=== PATIENT | female | born 1955 | race Two or more races ===

== ENCOUNTER 2020-04-03 06:58 | Inpatient (IN) | payer OTHER ==
--- NOTE | 2020-04-03 07:43 | PDOC ---
Attending Attestation - Resident Resident Name: Jarred Pires - ED Attending Attestation I have performed the following: I have examined & evaluated the patient, The case was reviewed & discussed with the resident, I agree w/resident's findings & plan, Exceptions are as noted - HPI HPI: 04/03/20 07:39 65YOF with h/o DM, HTN, HLD, and asthma who was BIBEMS (BLS) from home for fever and 2 episodes NBNB vomiting all since this morning. Was feeling well yesterday. She denies SOB, cough, ST, congestion, etc. Denies any specific areas of worsened pain (no specific CP, AP, back pain). She has not been taking abx or other Rx for symptoms. 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 Patient expresses concern for COVID-19. - Physicial Exam PE: 04/03/20 07:40 GENERAL: tired and a bit ill-appearing, A/Ox4, Portuguese-speaking, answers questions appropriately, appears dehydrated, wearing face mask, obese HEENT: PERRLA, EOMI, dry mucous membranes NECK/BACK: no midline ttp, no spinal stepoff or deformity, no hematoma, full ROM, neck supple CARDIOVASCULAR: rapid regular rhythm, no MGR, strong peripheral pulses, capillary refill 4 seconds, no edema LUNGS/RESPIRATORY: tachypneic, no focal area of decreased breath sounds, no crackles, no wheezes GI/ABDOMEN: symmetric [id number], normoactive BS, soft, no ttp, no midline pulsatile masses : no CVA tenderness MSK/EXTREMITIES: no muscle atrophy, no acute deformity SKIN: warm and dry, no pallor, no jaundice, no rash, no pathologic-appearing bruising, no skin breakdown, no cuts, no lesions NEUROLOGICAL: GCS 15, CN II-XII grossly intact, 5/5 strength proximally and distally, no facial droop - Medical Decision Making 04/03/20 07:40 65YOF with DM, HTN, HLD who p/w weakness and fever and c/f COVID-19 in the setting of COVID-19 pandemic. Initial Vital Signs Temp Pulse Resp BP Pulse Ox 103.7 F H 124 H 19 147/63 96 04/03/20 07:10 04/03/20 07:10 04/03/20 07:10 04/03/20 07:10 04/03/20 07:10 DDX IBNLT: likely COVID-19 with c/f sequelae i.e. myocarditis. Superimposed bacterial PNA considered as well. COPD/asthma/CHF exacerbation or other underlying lung disease possible contributing factor. Less likely influenza, bronchitis, other viral URI, laryngitis, tracheitis, etc. The patient has absent gallbladder on prior imaging and thus low suspicion for GB/retained stone. There is some c/f PE given the tachycardia and RBBB although this could be chronic and d/t fever (no prior EKG in our system). Provider Orders Category Date Time Status VENOUS BLOOD GAS Stat ABG 04/03/20 07:54 Completed ELECTROCARDIOGRAM [CARD] Stat Cardiology 04/03/20 07:21 Ordered Cardiac Monitoring Continuous Care 04/03/20 07:21 Active EKG needed NOW Care 04/03/20 07:21 Completed IV - Insert 2 lines NOW Care 04/03/20 07:21 Completed Isolation Precautions As directed Care 04/03/20 07:23 Active Notify Physician As directed Care 04/03/20 07:21 Active Notify Physician As directed Care 04/03/20 07:21 Active Physician Instructions As directed Care 04/03/20 07:21 Active Vital Signs [id number] Care 04/03/20 07:21 Active Add On Test Stat Lab 04/03/20 08:53 Ordered Add On Test Stat Lab 04/03/20 08:55 Ordered BILIRUBIN,DIRECT Stat Lab 04/03/20 07:50 Results C-REACTIVE PROTEIN Stat Lab 04/03/20 07:23 Ordered C-REACTIVE PROTEIN Stat Lab 04/03/20 07:50 Completed CBC WITH DIFFERENTIAL Stat Lab 04/03/20 07:50 Results CK MB Stat Lab 04/03/20 07:50 Completed COMP METABOLIC PANEL Stat Lab 04/03/20 07:50 Completed COVID-19 Stat Lab 04/03/20 07:50 Received CPK Stat Lab 04/03/20 07:50 Completed D-DIMER Stat Lab 04/03/20 07:50 Received FERRITIN Stat Lab 04/03/20 07:50 Results LACTIC ACID Stat Lab 04/03/20 07:50 Completed LDH Stat Lab 04/03/20 07:50 Results LIPASE Stat Lab 04/03/20 07:50 Results PT & APTT Stat Lab 04/03/20 07:50 Completed TROPONIN I ([facility]) Stat Lab 04/03/20 07:50 Completed UA ([facility]) ONLY Stat Lab 04/03/20 08:45 Ordered Acetaminophen Injection [Ofirmev Injection -] Medication 04/03/20 07:50 Discontinued 1,000 mg IVPB ONCE ONE Lactated Ringers Solution Medication 04/03/20 08:00 Active 1,000 ml in 1,000 ml IV ASDIR BLOOD CULTURE Stat Micro 04/03/20 07:50 Received URINE CULTURE Stat Micro 04/03/20 08:45 Ordered Saline Lock, Insert As directed Phy Order 04/03/20 07:21 Ordered CHEST X-RAY PORTABLE* [RAD] Stat Radiology 04/03/20 07:21 Completed 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 04/03/20 07:21 Ordered Medications Generic Name Dose Route Start Last Admin Trade Name Freq PRN Reason Stop Dose Admin Lactated Ringer's 1,000 ml in 1,000 mls @ 1,000 mls/hr 04/03/20 08:00 04/03/20 08:08 Lactated Ringers Solution IV 1,000 mls/hr ASDIR BELLA Administration Discontinued Medications Generic Name Dose Route Start Last Admin Trade Name Freq PRN Reason Stop Dose Admin Acetaminophen 1,000 mg 04/03/20 07:50 04/03/20 08:25 Ofirmev Injection - IVPB 04/03/20 07:51 1,000 mg ONCE ONE Administration Lab Results WBC 10.5 K/mm3 (4.0-10.0) H 04/03/20 07:50 RBC 4.27 M/mm3 (3.60-5.2) 04/03/20 07:50 Hgb 12.0 GM/dL (10.7-15.3) 04/03/20 07:50 Hct 35.9 % (32.4-45.2) 04/03/20 07:50 MCV 83.9 fl (80-96) 04/03/20 07:50 MCH 28.0 pg (25.7-33.7) 04/03/20 07:50 MCHC 33.3 g/dl (32.0-36.0) 04/03/20 07:50 RDW 14.1 % (11.6-15.6) 04/03/20 07:50 Plt Count 288 K/MM3 (134-434) 04/03/20 07:50 MPV 9.1 fl (7.5-11.1) 04/03/20 07:50 Absolute Neuts (auto) 9.8 K/mm3 (1.5-8.0) H 04/03/20 07:50 Neutrophils % 93.5 % (42.8-82.8) H 04/03/20 07:50 Lymphocytes % 3.9 % (8-40) L 04/03/20 07:50 Monocytes % 2.3 % (3.8-10.2) L 04/03/20 07:50 Eosinophils % 0.1 % (0-4.5) 04/03/20 07:50 Basophils % 0.2 % (0-2.0) 04/03/20 07:50 Nucleated RBC % 0 % (0-0) 04/03/20 07:50 PT with INR 12.10 SEC (9.7-13.0) 04/03/20 07:50 INR 1.03 (0.83-1.09) 04/03/20 07:50 PTT (Actin FS) 26.9 SECONDS (25.2-36.5) 04/03/20 07:50 VBG pH 7.386 (7.310-7.410) 04/03/20 07:54 POC VBG pCO2 44.9 mmHg (38-52) 04/03/20 07:54 POC VBG pO2 43.4 mmHg (28-48) 04/03/20 07:54 VBG HCO3 26.3 mmol/L (23-29) 04/03/20 07:54 VBG O2 Sat (Leanne) 78.4 % (70-80) 04/03/20 07:54 VBG Base Excess 1.0 mmol/L (-2-2) 04/03/20 07:54 Sodium 138 mmol/L (136-145) 04/03/20 07:50 Potassium 3.7 mmol/L (3.5-5.1) 04/03/20 07:50 Chloride 101 mmol/L (98-107) 04/03/20 07:50 Carbon Dioxide 27 mmol/L (21-32) 04/03/20 07:50 Anion Gap 9 MMOL/L (8-16) 04/03/20 07:50 BUN 14.9 mg/dL (7-18) 04/03/20 07:50 Creatinine 0.9 mg/dL (0.55-1.3) 04/03/20 07:50 Est GFR (CKD-EPI)AfAm 77.77 04/03/20 07:50 Est GFR (CKD-EPI)NonAf 67.10 04/03/20 07:50 Random Glucose 149 mg/dL (74-106) H 04/03/20 07:50 Lactic Acid 3.0 mmol/L (0.4-2.0) H* 04/03/20 07:50 Calcium 8.8 mg/dL (8.5-10.1) 04/03/20 07:50 Ferritin 56.1 ng/ml (8-388) 04/03/20 07:50 Total Bilirubin 1.4 mg/dL (0.2-1) H 04/03/20 07:50 Direct Bilirubin 0.7 mg/dL (0.0-0.2) H 04/03/20 07:50 AST 269 U/L (15-37) H 04/03/20 07:50 ALT 147 U/L (13-61) H 04/03/20 07:50 Alkaline Phosphatase 219 U/L (45-117) H 04/03/20 07:50 LD Total 406 U/L (84-246) H 04/03/20 07:50 Creatine Kinase 130 U/L (26-192) 04/03/20 07:50 CK-MB (CK-2) < 1.0 ng/mL (0.5-3.6) 04/03/20 07:50 Troponin I < 0.02 ng/ml (0.00-0.05) 04/03/20 07:50 C-Reactive Protein 2.0 MG/DL (0.00-0.3) H 04/03/20 07:50 Total Protein 7.6 g/dl (6.4-8.2) 04/03/20 07:50 Albumin 3.6 g/dl (3.4-5.0) 04/03/20 07:50 Urine Test Results Urine Color Yellow 04/03/20 08:12 Urine Appearance Error 04/03/20 08:12 Urine pH 6.0 (5.0-8.0) 04/03/20 08:12 Ur Specific [place] 1.018 (1.010-1.035) 04/03/20 08:12 Urine Protein Negative (NEGATIVE) 04/03/20 08:12 Urine Glucose (UA) Negative (NEGATIVE) 04/03/20 08:12 Urine Ketones Negative (NEGATIVE) 04/03/20 08:12 Urine Blood Trace (NEGATIVE) 04/03/20 08:12 Urine Nitrite Negative (NEGATIVE) 04/03/20 08:12 Urine Bilirubin Negative (NEGATIVE) 04/03/20 08:12 Ur Leukocyte Esterase Trace (NEGATIVE) 04/03/20 08:12 EKG: Reviewed; results as noted in ECG Review section. RAD/CHEST X-RAY PORTABLE* Portable chest: Sepsis A single view of the chest is been submitted. There is a weak inspiration with resultant large heart, unfolded aorta and prominent central markings suggestive of congestive changes. The angles are sharp and the soft tissues are intact. There are degenerative changes. When the patient is more stable, a repeat study with deep inspiration is suggested for more complete evaluation. CT/CHEST CTA History: rule out pulmonary emboli CT scan of chest with IV contrast - PE protocol; 100 cc Omnipaque 350 Findings There is no acute pulmonary emboli. There is no hilar, mediastinal or axillary lymphadenopathy. There is no pleural or pericardial effusion. There is no thoracic aortic aneurysm. There is a 7 mm nodule posterior medial aspect of the right upper lobe There are no infiltrates. There are no adrenal masses. IMPRESSION: No evidence of acute pulmonary emboli. 7 mm nodule posterior medial aspect right upper lobe. Recommend 3-6 month follow-up noncontrast CT scan to assess stability CT/ABDOMEN PELVIS CT W/O CONTR History: rule out pneumobilia CT Scan of abdomen and pelvis without oral or IV contrast FINDINGS: Study is limited by lack of contrast There is a small hiatal hernia Status post cholecystectomy Air is noted within the biliary tree There is fatty infiltration of the liver The spleen, pancreas and adrenal glands are unremarkable. There is no evidence of retroperitoneal lymphadenopathy or abdominal aortic aneurysm. Residual contrast is seen within the kidneys and bladder and ureters from recent prior contrast study The urinary bladder and uterus are unremarkable. There is no evidence of bowel obstruction. There are no inflammatory changes of the appendix or colon. No fluid collections are identified. Impression: Status post cholecystectomy Pneumobilia. Recommend clinical correlation however this finding is probably secondary to prior gallbladder surgery Fatty infiltration of the liver Patient has sepsis, bacteruria with WBCs too. Abx doses given in the ED, patient's BP has improved with IVF administration. Admission per resident note. Heart Score/ECG Review #1 04/03/20 07:53 Sinus tachycardia, rate 133, left axis deviation, RBBB with expected secondary ST-T changes but no ischemic ST-T changes Discharge - Discharge Information Problems reviewed: Yes Clinical Impression/Diagnosis: Suspected 2019 novel coronavirus infection, Lung nodule, Severe sepsis, Acute cholangitis Sepsis Qualifiers: Sepsis type: sepsis due to unspecified organism Sepsis acute organ dysfunction status: unspecified Qualified Code(s): A41.9 - Sepsis, unspecified organism UTI (urinary tract infection) Qualifiers: Urinary tract infection type: site unspecified Hematuria presence: with hematuria Qualified Code(s): N39.0 - Urinary tract infection, site not specified Condition: Guarded - Admission Yes - Follow up/Referral - Patient Discharge Instructions - Post Discharge Activity
[2020-04-03] MEDS ORDERED: ACETAMINOPHEN 1000 MG/100 ML VIAL (NON FORMULARY) IVPB ONE (07:50)
[2020-04-03] MEDS: LACTATED RINGERS SOLUTION 1,000 ML/1,000 ML INFUS.BAG IV SCH (08:08)
[2020-04-03 08:24] LABS: VENOUS O2 SATURATION 78.4 % (70-80); VENOUS PCO2 44.9 mmHg (38-52); VENOUS PH 7.386 (7.310-7.410)
[2020-04-03 08:28] LABS: BASO % 0.2 % (0-2.0); EOS % 0.1 % (0-4.5); HEMATOCRIT 35.9 % (32.4-45.2); LYMPH % 3.9 % (8-40); MCHC 33.3 g/dl (32.0-36.0); MEAN CELL VOLUME 83.9 fl (80-96); MEAN PLT VOLUME 9.1 fl (7.5-11.1); MONO % 2.3 % (3.8-10.2); NEUT % 93.5 % (42.8-82.8); PLATELET COUNT 288 K/MM3 (134-434); RBC 4.27 M/mm3 (3.60-5.2); RDW 14.1 % (11.6-15.6); WHITE BLOOD COUNT 10.5 K/mm3 (4.0-10.0)
[2020-04-03 08:40] LABS: INR 1.03 (0.83-1.09); PROTHROMBIN TIME (PATIENT) 12.1 SEC (9.7-13.0)
[2020-04-03 08:42] LABS: ACTIVATED PTT 26.9 SECONDS (25.2-36.5)
[2020-04-03 08:46] LABS: BILIRUBIN,DIRECT 0.7 mg/dL (0.0-0.2)
--- NOTE | 2020-04-03 08:46 | PDOC ---
History of Present Illness - General Chief Complaint: Respiratory Stated Complaint: FEVER,WEAKNESS Time Seen by Provider: 04/03/20 07:14 History Source: Patient Exam Limitations: Language Barrier - History of Present Illness Initial Comments: Lora is a 65 yo F w a pmh of diabetes, HTN, and asthma who presents to the [facility] er with 1 day of fevers up to 104 and two episodes of NBNB vomiting. She also endorsed some mild epigastric abdominal discomfort which comes and goes and she rates the pain around 7/10 when it is present. - Had 1 episode of diarrhea around a month ago Patient denies having any pain at the present time. Denies headache, neck pain, blurry vision. Denies SOB, cough, sputum production and chest pain. Denies rashes or recent travel. Denies dysuria, frequency or urgency. Denies having any back pain. PSH: Cholecystectomy Allergies: NKA, NKDA Social Hx: Denies drinking, smoking, or illicit drug usage. Past History - Medical History Allergies/Adverse Reactions: Allergies Allergy/AdvReac Type Severity Reaction Status Date / Time No Known Allergies Allergy Verified 04/03/20 08:02 Home Medications: Ambulatory Orders Enalapril Maleate 0 mg PO DAILY 04/03/20 Glipizide [Glipizide Xl] 0 mg PO DAILY 04/03/20 Hydrochlorothiazide [Hctz -] 0 mg PO DAILY 04/03/20 Simvastatin 0 gm MC DAILY 04/03/20 COPD: No Diabetes: Yes HTN: Yes - Immunization History Immunization Up to Date: No - Psycho-Social/Smoking History Smoking History: Never smoked - Substance Abuse Hx (Audit-C & DAST Scrn) How often the patient has a drink containing alcohol: Never Score: In Men: 4 or > Positive; In Women: 3 or > Positive: 0 Screen Result (Pos requires Nsg. Audit-10AR): Negative In the last yr the pt used illegal drug/Rx for NonMed reason: No Score: Yes response is considered Positive: 0 Screen Result (Positive result requires Nsg. DAST-10): Negative Review of Systems - Review of Systems Able to Perform ROS?: Yes Comments:: CONSTITUTIONAL: Present: fever, chills, fatigue EYES: Absent: visual changes ENT: Absent: ear pain, no sore throat CARDIOVASCULAR: Absent: chest pain, no palpitations RESPIRATORY: Absent: cough, no SOB GI: Present: Nausea, vomiting, abdominal pain Absent: no constipation, no diarrhea GENITOURINARY: Absent: dysuria, no frequency, no hematuria MUSKULOSKELETAL: Absent: back pain, no arthralgia, no myalgia SKIN: Absent: rash NEURO: Absent: headache *Physical Exam - Vital Signs Last Vital Signs Temp Pulse Resp BP Pulse Ox 103.7 F H 124 H 19 147/63 96 04/03/20 07:10 04/03/20 07:10 04/03/20 07:10 04/03/20 07:10 04/03/20 07:10 - Physical Exam GENERAL: Morbidly obese. Feels warm. Mild apparent distress. HEENT: Normocephalic, atraumatic. PERRL, EOM intact. CARDIOVASCULAR: Tachycardic rate, regular rhythm, normal S1, S2. PULMONARY: No evidence of respiratory distress. Lungs clear to auscultation bilaterally. No wheezing, rales or rhonchi. ABDOMEN: Soft, non-distended, non-tender. EXTREMITIES: Normal ROM in all four extremities. No gross deformities. SKIN: Warm, dry. No rash NEUROLOGICAL: No focal neurological deficits. negative brudzinsky and negative kernig. ED Treatment Course - LABORATORY CBC & Chemistry Diagram: 04/03/20 07:50 04/03/20 07:50 - ADDITIONAL ORDERS Additional order review: Laboratory Results 04/03/20 04/03/20 07:54 07:50 PT with INR 12.10 INR 1.03 VBG pH 7.386 POC VBG pCO2 44.9 POC VBG pO2 43.4 VBG HCO3 26.3 VBG O2 Sat (Leanne) 78.4 VBG Base Excess 1.0 04/03/20 07:50 RBC 4.27 MCV 83.9 MCHC 33.3 RDW 14.1 MPV 9.1 Neutrophils % 93.5 H Lymphocytes % 3.9 L Monocytes % 2.3 L Eosinophils % 0.1 Basophils % 0.2 - RADIOLOGY Radiology Studies Ordered: Category Date Time Status CHEST X-RAY PORTABLE* [RAD] Stat Radiology 04/03/20 07:21 Taken - Medications Given in the ED: ED Medications Discontinued Medications Generic Name Dose Route Start Last Admin Trade Name Freq PRN Reason Stop Dose Admin Acetaminophen 1,000 mg 04/03/20 07:50 04/03/20 08:25 Ofirmev Injection - IVPB 04/03/20 07:51 1,000 mg ONCE ONE Administration Medical Decision Making - Medical Decision Making Lora is a 65 yo F w a pmh of diabetes, HTN, and asthma who presents to the [facility] er with 1 day of fevers up to 104 and two episodes of NBNB vomiting. She also endorsed some mild epigastric abdominal discomfort which comes and goes and she rates the pain around 7/10 when it is present. - Had 1 episode of diarrhea around a month ago Patient denies having any pain at the present time. Denies headache, neck pain, blurry vision. Denies SOB, cough, sputum production and chest pain. Denies rash es or recent travel. Denies dysuria, frequency or urgency. Denies having any back pain. Vital Signs Temp Pulse Resp BP Pulse Ox 103.7 F H 124 H 19 147/63 96 04/03/20 07:10 04/03/20 07:10 04/03/20 07:10 04/03/20 07:10 04/03/20 07:10 DDx IBNLT: Sepsis - Liek[place] sources include COVID vs other PNA vs appendicitis vs pancreatitis, pericarditis, electrolyte/metabolic disturbance, gastroenteritis Plan: Septic workup, CXR, POCUS, CT, labs, urine, EKG, likely Abx, re-assess, admission to hospital EKG: Sinus tachycardia rate of 133, pr 154, RBBB, qrs 118, LAD, no hypertrophy, Non-specific ST elevations in 3, aVR, V1, V2, V3 likely related to sinus tac hycardia, QT 340/QTc 506 POCUS: hyperdynamic precordium, no focal wall motion abnormalities, no per icardial effusion, normal LV/RV ratio, overall good contractility Labs: Elevated inflammatory markers, elevated LFTs. MDM: Patient has epigatsric/RUQ abdominal pain, was febrile upon entrance into the ER, and appears mildly jaundiced. Will treat with Abx and consider working up patient for ascending cholangitis. Dispo: Admission - Report given to Dr. Bridgette Marrero Discharge - Discharge Information Problems reviewed: Yes Clinical Impression/Diagnosis: Suspected 2019 novel coronavirus infection, Lung nodule, Severe sepsis, Acute cholangitis Sepsis Qualifiers: Sepsis type: sepsis due to unspecified organism Sepsis acute organ dysfunction status: unspecified Qualified Code(s): A41.9 - Sepsis, unspecified organism UTI (urinary tract infection) Qualifiers: Urinary tract infection type: site unspecified Hematuria presence: with hematuria Qualified Code(s): N39.0 - Urinary tract infection, site not specified Condition: Guarded - Admission Yes - Follow up/Referral - Patient Discharge Instructions - Post Discharge Activity
[2020-04-03 08:50] LABS: ALBUMIN 3.6 g/dl (3.4-5.0); ALK PHOS 219 U/L (45-117); ANION GAP 9 MMOL/L (8-16); BILIRUBIN,TOTAL 1.4 mg/dL (0.2-1); BLOOD UREA NITROGEN 14.9 mg/dL (7-18); CALCIUM 8.8 mg/dL (8.5-10.1); CHLORIDE 101 mmol/L (98-107); CO2 27 mmol/L (21-32); CREATININE 0.9 mg/dL (0.55-1.3); GLUCOSE,RANDOM 149 mg/dL (74-106); POTASSIUM 3.7 mmol/L (3.5-5.1); SGOT/AST 269 U/L (15-37); SGPT/ALT 147 U/L (13-61); SODIUM 138 mmol/L (136-145); TOT PROT 7.6 g/dl (6.4-8.2)
[2020-04-03 09:40] LABS: EPI CELLS 14 /uL (0-25.1); HYALINE CASTS 1 /uL (0-3.1); URINE APPEARANCE Error; URINE BACTERIA 1089 /uL (0-1359); URINE BILIRUBIN NEGATIVE (NEGATIVE); URINE COLOR YELLOW; URINE GLUCOSE (UA) NEGATIVE (NEGATIVE); URINE KETONE NEGATIVE (NEGATIVE); URINE LEUK ESTERASE TRACE (NEGATIVE); URINE NITRITE NEGATIVE (NEGATIVE); URINE PROTEIN NEGATIVE (NEGATIVE); URINE RBC 54 /uL (0-23.9); URINE WBC 4 /uL (0-25.8)
[2020-04-03] MEDS ORDERED: VANCOMYCIN 1,000 MG in DEXTROSE 5%-WATER - 250 ML IVPB ONE (10:25)
[2020-04-03] MEDS ORDERED: PIPERACILLIN/TAZOB 4.5 GM 4.5 GM in DEXTROSE 5%-WATER 100 ML IVPB ONE (10:26)
[2020-04-03] MEDS ORDERED: LACTATED RINGERS SOLUTION 1000 ML INFUS.BAG IV ONE (10:28)
[2020-04-03] MEDS ORDERED: VANCOMYCIN 1 GRAM (PRE-DOCKED) 1,000 MG/250 ML BAG IVPB ONE (10:32)
[2020-04-03] MEDS ORDERED: PIPERACILLIN/TAZOB 4.5 GM 4.5 GM/100 ML BAG IVPB ONE (10:32)
[2020-04-03] MEDS ORDERED: ONDANSETRON 4 MG/2 ML VIAL IVPUSH PRN (11:58)
[2020-04-03 12:00] LABS: ANISOCYTOSIS 0; MACROCYTOSIS 0; PLATELET ESTIMATE NORMAL
--- NOTE | 2020-04-03 12:09 | HP ---
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 nausea vomiting on arrival patient spiked 104, 2 episodes of nonbloody, nonbilious watery vomiting, in the ED patient was tachycardic EKG shows RBBB no previous EKGs available for comparison patient was tachypneic, work-up shows elevated lactic acid, transaminitis, CT chest shows no acute pathology, CT abdomen shows History Source: Patient - Past Surgical History Past Surgical History: Yes: Cholecystectomy - Smoking History Smoking history: Never smoked - Alcohol/Substance Use Hx Alcohol Use: No - Social History Usual Living Arrangement: Yes: With Spouse Home Medications - Allergies Allergies/Adverse Reactions: Allergies Allergy/AdvReac Type Severity Reaction Status Date / Time No Known Allergies Allergy Verified 04/03/20 08:02 - Home Medications Home Medications: Ambulatory Orders Enalapril Maleate 0 mg PO DAILY 04/03/20 Glipizide [Glipizide Xl] 0 mg PO DAILY 04/03/20 Hydrochlorothiazide [Hctz -] 0 mg PO DAILY 04/03/20 Simvastatin 0 gm MC DAILY 04/03/20 Physical Examination Vital Signs: Vital Signs Temperature 99.1 F 04/03/20 10:50 Pulse Rate 103 H 04/03/20 10:50 Respiratory Rate 22 H 04/03/20 10:50 Blood Pressure 96/66 04/03/20 10:50 O2 Sat by Pulse Oximetry (%) 97 04/03/20 10:50 General: Middle-aged woman , comfortable, not in distress HEENT mucous membranes moist, no anemia, no jaundice, PERRLA, no nystagmus Neck: No JVD, supple, no bruit, thyroid palpably normal, normal carotid pulsations. Chest: Nontender, clear to auscultation bilaterally CVS: S1-S2 regular no murmur/gallop/rub Abdomen: Nondistended, soft, bowel sounds present. Extremities: No edema., No Calf tenderness, pulses present DIRECTOR OF COMPENSATION: AO X3 , no gross motor sensory deficit Labs: CBC, BMP 04/03/20 07:50 04/03/20 07:50 Imaging - Results Cat Scan: Report Reviewed (CT chest with PE protocol: No PE CT abdomen pelvis: Pneumobilia status post cholecystectomy) EKG: Report Reviewed (Sinus tachycardia) Problem List - Problems (1) Sepsis Assessment/Plan: Patient presented with fever, chills possible UTI with transaminitis tachypnea and tachycardia , an episode of hypotension responded , normal saline bolus elev ated white blood cell count, possibility of UTI although patient is asymptomatic considering transaminitis may be possibility of ascending cholangitis but patient has no right upper quadrant tenderness, will continue IV Zosyn, follow- up blood culture urine culture ID consult, Tylenol as needed for the pain. Problems reviewed: Yes Code(s): A41.9 - SEPSIS, UNSPECIFIED ORGANISM Qualifiers: Sepsis type: sepsis due to unspecified organism Sepsis acute organ dysfunction status: unspecified Qualified Code(s): A41.9 - Sepsis, unspecified organism (2) Transaminitis Assessment/Plan: Elevated LFTs, but no right upper quadrant pain, follow-up hepatitis panel, less likely hepatitis, right upper quadrant ultrasound, GI consult Dr. Soares is called Problems reviewed: Yes Code(s): R74.0 - NONSPEC ELEV OF LEVELS OF TRANSAMNS & LACTIC ACID DEHYDRGNSE (3) UTI (urinary tract infection) Assessment/Plan: Patient is asymptomatic but have RBCs, bacteria and few WBC in the urine possibility of UTI follow-up cultures patient is on Zosyn Problems reviewed: Yes Code(s): N39.0 - URINARY TRACT INFECTION, SITE NOT SPECIFIED Qualifiers: Urinary tract infection type: site unspecified Hematuria presence: with hematuria Qualified Code(s): N39.0 - Urinary tract infection, site not specified; R31.9 - Hematuria, unspecified (4) Type 2 diabetes mellitus Assessment/Plan: Follow-up Bumex continue Accu-Chek before meals and bedtime with correction dose insulin follow-up hemoglobin A1c, diabetic diet. Problems reviewed: Yes Code(s): E11.9 - TYPE 2 DIABETES MELLITUS WITHOUT COMPLICATIONS (5) Hypertension Assessment/Plan: Hold BP meds for hypertension Problems reviewed: Yes Code(s): I10 - ESSENTIAL (PRIMARY) HYPERTENSION (6) Lung nodule Assessment/Plan: CT scan shows lung nodule follow-up as an outpatient Problems reviewed: Yes Code(s): R91.1 - SOLITARY PULMONARY NODULE (7) Obesity (BMI 30-39.9) Assessment/Plan: Weight management and nutrition consult as an outpatient. Problems reviewed: Yes Code(s): E66.9 - OBESITY, UNSPECIFIED
[2020-04-03] MEDS ORDERED: ENOXAPARIN NA (PORCINE) 40 MG/0.4 ML DISP.SYRIN SQ ONE (12:19)
[2020-04-03] MEDS: ENOXAPARIN NA (PORCINE) 40 MG/0.4 ML DISP.SYRIN SQ SCH (12:23)
[2020-04-03] MEDS: SODIUM CHLORIDE 1,000 ML IV SCH ×2 (12:23→16:36)
[2020-04-03 14:50] VITALS: BMI 38.7
[2020-04-03] MEDS ORDERED: PNEUMOC 13-VAL CONJ-DIP CRM/PF 0.5 ML DISP.SYRIN IM ONE (14:53)
--- NOTE | 2020-04-03 14:55 | CON.ID ---
Consult - History of Present Illness History of Present Illness: 65 y.o. female with PMH of DM, morbid obesity, HTN, HLD, and asthma, s/p cholecystectomy presents with c/o fever/chills and episodes of nausea and nonbloody vomiting since morning. She denies specific area of abd pain and has no urinary f/u/d. In the ER noted to have temp of 103.7F and was tachycardic with elevation of lactic acid and LFTs. CT abd/pelvis revealed pneumobilia likely due to previous GB surgery. U/A suggestive of possible UTI. Today states she feels better. No recent nausea/vomiting and denies abd pain. Temp of 99.8F currently - Past Medical History Cardio/Vascular: Yes: HTN, Hyperlipdemia Pulmonary: Yes: Asthma ...: No Endocrine: Yes: Diabetes Mellitus - Past Surgical History Past Surgical History: Yes: Cholecystectomy - Alcohol/Substance Use Hx Alcohol Use: No - Smoking History Smoking history: Never smoked Home Medications - Allergies Allergies/Adverse Reactions: Allergies Allergy/AdvReac Type Severity Reaction Status Date / Time No Known Allergies Allergy Verified 04/03/20 08:02 - Home Medications Home Medications: Ambulatory Orders Enalapril Maleate 0 mg PO DAILY 04/03/20 Glipizide [Glipizide Xl] 0 mg PO DAILY 04/03/20 Hydrochlorothiazide [Hctz -] 0 mg PO DAILY 04/03/20 Simvastatin 0 gm MC DAILY 04/03/20 Review of Systems - Review of Systems Constitutional: reports: No Symptoms Eyes: reports: No Symptoms HENT: reports: No Symptoms Neck: reports: No Symptoms Cardiovascular: reports: No Symptoms Respiratory: reports: No Symptoms Gastrointestinal: reports: No Symptoms Genitourinary: reports: No Symptoms Integumentary: reports: No Symptoms Neurological: reports: No Symptoms Endocrine: reports: No Symptoms Hematology/Lymphatic: reports: No Symptoms Physical Exam Vital Signs: Vital Signs Temperature 99.8 F H 04/03/20 14:08 Pulse Rate 106 H 04/03/20 14:08 Respiratory Rate 20 04/03/20 14:08 Blood Pressure 139/68 04/03/20 14:08 O2 Sat by Pulse Oximetry (%) 96 04/03/20 14:08 Constitutional: Yes: No Distress, Calm Eyes: Yes: Conjunctiva Clear, EOM Intact HENT: Yes: Atraumatic, Normocephalic Neck: Yes: Supple Cardiovascular: Yes: Tachycardia Respiratory: Yes: CTA Bilaterally Gastrointestinal: Yes: Normal Bowel Sounds, Soft, Abdomen, Obese Renal/: Yes: WNL Extremities: Yes: WNL Integumentary: Yes: WNL Neurological: Yes: Alert Labs: CBC, BMP 04/03/20 07:50 04/03/20 07:50 Laboratory Tests 04/03/20 04/03/20 04/03/20 07:50 07:50 07:50 WBC 10.5 H RBC 4.27 Hgb 12.0 Hct 35.9 MCV 83.9 MCH 28.0 MCHC 33.3 RDW 14.1 Plt Count 288 MPV 9.1 Absolute Neuts (auto) 9.8 H Neutrophils % 93.5 H Neutrophils % (Manual) 82.3 Band Neutrophils % 11.5 Lymphocytes % 3.9 L Lymphocytes % (Manual) 3.1 L Monocytes % 2.3 L Monocytes % (Manual) 1 L Eosinophils % 0.1 Eosinophils % (Manual) 0.0 Basophils % 0.2 Basophils % (Manual) 0.0 Myelocytes % (Man) 0 Promyelocytes % (Man) 0 Blast Cells % (Manual) 0 Nucleated RBC % 0 Metamyelocytes 0 Hypochromia 0 Platelet Estimate Normal Polychromasia 0 Poikilocytosis 0 Anisocytosis 0 Microcytosis 0 Macrocytosis 0 PT with INR 12.10 INR 1.03 PTT (Actin FS) 26.9 D-Dimer VBG pH POC VBG pCO2 POC VBG pO2 VBG HCO3 VBG O2 Sat (Leanne) VBG Base Excess Sodium 138 Potassium 3.7 Chloride 101 Carbon Dioxide 27 Anion Gap 9 BUN 14.9 Creatinine 0.9 Est GFR (CKD-EPI)AfAm 77.77 Est GFR (CKD-EPI)NonAf 67.10 Random Glucose 149 H Lactic Acid Calcium 8.8 Ferritin Total Bilirubin 1.4 H Direct Bilirubin AST 269 H ALT 147 H Alkaline Phosphatase 219 H LD Total Creatine Kinase 130 CK-MB (CK-2) < 1.0 Troponin I < 0.02 C-Reactive Protein 2.0 H Total Protein 7.6 Albumin 3.6 Lipase Urine Color Urine Appearance Urine pH Ur Specific [place] Urine Protein Urine Glucose (UA) Urine Ketones Urine Blood Urine Nitrite Urine Bilirubin Urine Urobilinogen Ur Leukocyte Esterase Urine WBC (Auto) Urine RBC (Auto) Urine Casts (Auto) U Epithel Cells (Auto) Urine Bacteria (Auto) 04/03/20 04/03/20 04/03/20 07:50 07:50 07:50 WBC RBC Hgb Hct MCV MCH MCHC RDW Plt Count MPV Absolute Neuts (auto) Neutrophils % Neutrophils % (Manual) Band Neutrophils % Lymphocytes % Lymphocytes % (Manual) Monocytes % Monocytes % (Manual) Eosinophils % Eosinophils % (Manual) Basophils % Basophils % (Manual) Myelocytes % (Man) Promyelocytes % (Man) Blast Cells % (Manual) Nucleated RBC % Metamyelocytes Hypochromia Platelet Estimate Polychromasia Poikilocytosis Anisocytosis Microcytosis Macrocytosis PT with INR INR PTT (Actin FS) D-Dimer 2325 H VBG pH POC VBG pCO2 POC VBG pO2 VBG HCO3 VBG O2 Sat (Leanne) VBG Base Excess Sodium Potassium Chloride Carbon Dioxide Anion Gap BUN Creatinine Est GFR (CKD-EPI)AfAm Est GFR (CKD-EPI)NonAf Random Glucose Lactic Acid 3.0 H* Calcium Ferritin 56.1 Total Bilirubin Direct Bilirubin 0.7 H AST ALT Alkaline Phosphatase LD Total 406 H Creatine Kinase CK-MB (CK-2) Troponin I C-Reactive Protein Total Protein Albumin Lipase 86 Urine Color Urine Appearance Urine pH Ur Specific [place] Urine Protein Urine Glucose (UA) Urine Ketones Urine Blood Urine Nitrite Urine Bilirubin Urine Urobilinogen Ur Leukocyte Esterase Urine WBC (Auto) Urine RBC (Auto) Urine Casts (Auto) U Epithel Cells (Auto) Urine Bacteria (Auto) 04/03/20 04/03/20 07:54 08:12 WBC RBC Hgb Hct MCV MCH MCHC RDW Plt Count MPV Absolute Neuts (auto) Neutrophils % Neutrophils % (Manual) Band Neutrophils % Lymphocytes % Lymphocytes % (Manual) Monocytes % Monocytes % (Manual) Eosinophils % Eosinophils % (Manual) Basophils % Basophils % (Manual) Myelocytes % (Man) Promyelocytes % (Man) Blast Cells % (Manual) Nucleated RBC % Metamyelocytes Hypochromia Platelet Estimate Polychromasia Poikilocytosis Anisocytosis Microcytosis Macrocytosis PT with INR INR PTT (Actin FS) D-Dimer VBG pH 7.386 POC VBG pCO2 44.9 POC VBG pO2 43.4 VBG HCO3 26.3 VBG O2 Sat (Leanne) 78.4 VBG Base Excess 1.0 Sodium Potassium Chloride Carbon Dioxide Anion Gap BUN Creatinine Est GFR (CKD-EPI)AfAm Est GFR (CKD-EPI)NonAf Random Glucose Lactic Acid Calcium Ferritin Total Bilirubin Direct Bilirubin AST ALT Alkaline Phosphatase LD Total Creatine Kinase CK-MB (CK-2) Troponin I C-Reactive Protein Total Protein Albumin Lipase Urine Color Yellow Urine Appearance Error Urine pH 6.0 Ur Specific [place] 1.018 Urine Protein Negative Urine Glucose (UA) Negative Urine Ketones Negative Urine Blood Trace Urine Nitrite Negative Urine Bilirubin Negative Urine Urobilinogen 1.0 Ur Leukocyte Esterase Trace Urine WBC (Auto) 4 Urine RBC (Auto) 54 Urine Casts (Auto) 1 U Epithel Cells (Auto) 14 Urine Bacteria (Auto) 1089 Blood/Urine cultures - pending Imaging - Results Chest X-ray: Report Reviewed Cat Scan: Report Reviewed Problem List - Problems (1) Severe sepsis Code(s): A41.9 - SEPSIS, UNSPECIFIED ORGANISM; R65.20 - SEVERE SEPSIS WITHOUT SEPTIC SHOCK (2) UTI (urinary tract infection) Code(s): N39.0 - URINARY TRACT INFECTION, SITE NOT SPECIFIED Qualifiers: Urinary tract infection type: site unspecified Hematuria presence: with hematuria Qualified Code(s): N39.0 - Urinary tract infection, site not specified; R31.9 - Hematuria, unspecified (3) Hypertension Code(s): I10 - ESSENTIAL (PRIMARY) HYPERTENSION (4) Obesity (BMI 30-39.9) Code(s): E66.9 - OBESITY, UNSPECIFIED (5) Transaminitis Code(s): R74.0 - NONSPEC ELEV OF LEVELS OF TRANSAMNS & LACTIC ACID DEHYDRGNSE (6) Type 2 diabetes mellitus Code(s): E11.9 - TYPE 2 DIABETES MELLITUS WITHOUT COMPLICATIONS Assessment/Plan 65 y.o. female with PMH of DM, morbid obesity, HTN, HLD, asthma, s/p cholecystectomy presents with c/o fever/n/v since this morning. Febrile and tachycardic in ER with episode of hypotension Severe Sepsis Fever Transaminitis w/o abd pain Nausea/Vomiting Possible UTI -- continue Zosyn empirically for now -- follow up blood/urine culture results -- monitor vitals closely -- trend LFTs, repeat lactic acid -- GI evaluation Pt currently states she is feeling better without vomiting episode Will follow Thank you
[2020-04-03] MEDS ORDERED: PIPERACILLIN/TAZOB 4.5 GM 4.5 GM in DEXTROSE 5%-WATER 100 ML IVPB SCH (15:00)
[2020-04-03] MEDS ORDERED: DEXTROSE 5%-WATER 100 ML IVPB ONE ×2 (16:27→19:52)
[2020-04-03] MEDS ORDERED: PIPERACILLIN/TAZOBACTAM 4.5 GM VIAL IVPB ONE ×2 (16:27→19:52)
[2020-04-03] MEDS: INSULIN SLIDING SCALE (NOVOLOG) 1 VIAL SQ SCH (16:37)
[2020-04-03] MEDS: PIPERACILLIN/TAZOB 4.5 GM 4.5 GM in DEXTROSE 5%-WATER 100 ML IVPB SCH ×2 (16:37→20:04)
[2020-04-03] MEDS: ACETAMINOPHEN 325 MG TABLET (FP) PO PRN (18:40)
[2020-04-04] MEDS ORDERED: DEXTROSE 5%-WATER 100 ML IVPB ONE ×4 (00:28→20:02)
[2020-04-04] MEDS ORDERED: PIPERACILLIN/TAZOBACTAM 4.5 GM VIAL IVPB ONE ×4 (00:28→20:01)
[2020-04-04] MEDS: PIPERACILLIN/TAZOB 4.5 GM 4.5 GM in DEXTROSE 5%-WATER 100 ML IVPB SCH ×4 (02:01→20:08)
[2020-04-04] MEDS: SODIUM CHLORIDE 1,000 ML IV SCH ×2 (02:01→15:10)
[2020-04-04] MEDS: INSULIN SLIDING SCALE (NOVOLOG) 1 VIAL SQ SCH ×3 (06:21→17:05)
[2020-04-04 08:03] LABS: ALBUMIN 2.8 g/dl (3.4-5.0); BLOOD UREA NITROGEN 9.2 mg/dL (7-18); CALCIUM 7.9 mg/dL (8.5-10.1); CREATININE 0.7 mg/dL (0.55-1.3); MAGNESIUM 1.5 mg/dL (1.8-2.4); POTASSIUM 3.3 mmol/L (3.5-5.1); TOT PROT 6.1 g/dl (6.4-8.2)
[2020-04-04 08:21] LABS: BILIRUBIN,TOTAL 4.1 mg/dL (0.2-1)
[2020-04-04] MEDS: PANTOPRAZOLE SODIUM 40 MG VIAL IVPUSH SCH (10:44)
[2020-04-04] MEDS: ENOXAPARIN NA (PORCINE) 40 MG/0.4 ML DISP.SYRIN SQ SCH (10:44)
[2020-04-04] MEDS: LACTATED RINGERS SOLUTION 1,000 ML/1,000 ML INFUS.BAG IV SCH (10:45)
[2020-04-04 11:59] LABS: BASO % 0.3 % (0-2.0); EOS % 1.1 % (0-4.5); HEMATOCRIT 31.1 % (32.4-45.2); HEMOGLOBIN 10.4 GM/dL (10.7-15.3); LYMPH % 6.1 % (8-40); MCH 27.7 pg (25.7-33.7); MCHC 33.4 g/dl (32.0-36.0); MEAN PLT VOLUME 9.2 fl (7.5-11.1); MONO % 4.5 % (3.8-10.2); PLATELET COUNT 260 K/MM3 (134-434); RBC 3.75 M/mm3 (3.60-5.2); RDW 14.6 % (11.6-15.6); WHITE BLOOD COUNT 8.6 K/mm3 (4.0-10.0)
[2020-04-04] MEDS ORDERED: INSULIN (NOVOLOG) ASPART 100 UNITS/ML 10ML VIAL ONE (13:15)
--- NOTE | 2020-04-04 13:24 | PN ---
Progress Note, Physician Chief Complaint: Feels improved remained afebrile History of Present Illness: Today 65 years old Lithuanian-speaking morbidly obese female history of hypertension, type 2 diabetes mellitus, hypercholesteremia status post cholecystectomy presented to ED for evaluation of nausea vomiting fev non-bloody Er and chills in the ED patient was tachycardic EKG shows RBBB no previous EKGs available for comparison patient was tachypneic, work-up shows elevated lactic acid, transaminitis, CT chest shows no acute pathology, CT abdomen shows shows hematobilia, status post cholecystectomy, UA positive, overnight feels improved on IV antibiotic, urine and blood cultures growing gram-negative bacilli. - Current Medication List Current Medications: Active Medications Acetaminophen (Tylenol -) 650 mg PO Q6H PRN PRN Reason: FEVER Last Admin: 04/03/20 18:40 Dose: 650 mg Documented by: Enoxaparin Sodium (Lovenox -) 40 mg SQ DAILY [facility] Last Admin: 04/04/20 10:44 Dose: 40 mg Documented by: Lactated Ringer's (Lactated Ringers Solution) 1,000 ml in 1,000 mls @ 1,000 mls/hr IV ASDIR [facility] Last Admin: 04/04/20 10:45 Dose: Not Given Documented by: Sodium Chloride (Normal Saline -) 1,000 mls @ 100 mls/hr IV ASDIR BELL[facility] Last Admin: 04/04/20 02:01 Dose: 100 mls/hr Documented by: Piperacillin Sod/Tazobactam (Sod 4.5 gm/ Dextrose) 100 mls @ 200 mls/hr IVPB Q6H-IV [facility]; Protocol Last Admin: 04/04/20 10:00 Dose: 200 mls/hr Documented by: Insulin Aspart (Novolog Vial Sliding Scale -) 1 vial SQ TIDAC [facility]; Protocol Last Admin: 04/04/20 13:16 Dose: 2 unit Documented by: Ondansetron HCl (Zofran Injection) 4 mg IVPUSH Q6H PRN PRN Reason: NAUSEA Pantoprazole Sodium (Protonix Iv) 40 mg IVPUSH DAILY [facility] Last Admin: 04/04/20 10:44 Dose: 40 mg Documented by: - Objective Vital Signs: Vital Signs Temperature 98.9 F 04/04/20 09:04 Pulse Rate 88 04/04/20 09:04 Respiratory Rate 18 04/04/20 09:04 Blood Pressure 125/70 04/04/20 09:04 O2 Sat by Pulse Oximetry (%) 99 04/04/20 09:04 General: Middle-aged woman , comfortable, not in distress HEENT mucous membranes moist, no anemia, no jaundice, PERRLA, no nystagmus Neck: No JVD, supple, no bruit, thyroid palpably normal, normal carotid pulsations. Chest: Nontender, clear to auscultation bilaterally CVS: S1-S2 regular no murmur/gallop/rub Abdomen: Nondistended, soft, bowel sounds present. 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 , no gross motor sensory deficit Labs: CBC, BMP 04/04/20 09:50 04/04/20 06:35 INR, PTT INR 1.03 (0.83-1.09) 04/03/20 07:50 Hepatic Panel Total Bilirubin 4.1 mg/dL (0.2-1) H D 04/04/20 06:35 Direct Bilirubin 0.7 mg/dL (0.0-0.2) H 04/03/20 07:50 AST 146 U/L (15-37) H 04/04/20 06:35 ALT 154 U/L (13-61) H 04/04/20 06:35 Alkaline Phosphatase 131 U/L (45-117) H 04/04/20 06:35 Albumin 2.8 g/dl (3.4-5.0) L 04/04/20 06:35 Microbiology 04/03/20 07:50 Blood Culture - Preliminary Blood - Peripheral Venous Lactose Fermenting Neg Bacilli 04/03/20 07:50 Blood Culture - Preliminary Blood - Peripheral Venous Lactose Fermenting Neg Bacilli 04/03/20 08:12 Urine Culture - Final Urine - Urine Clean Catch Contaminated: Please Repeat Problem List - Problems (1) Sepsis Assessment/Plan: Patient presented with fever, chills possible UTI with transaminitis tachypnea and tachycardia , an episode of hypotension responded , normal saline bolus elevated white blood cell count, possibility of UTI although patient is asymptomatic considering transaminitis possibility of transaminitis, UA culture contaminant, blood culture grew gram-negative rods continue Zosyn patient is improving. Code(s): A41.9 - SEPSIS, UNSPECIFIED ORGANISM Qualifiers: Sepsis type: sepsis due to unspecified organism Sepsis acute organ dysfunction status: unspecified Qualified Code(s): A41.9 - Sepsis, unspecified organism (2) Transaminitis Assessment/Plan: Elevated LFTs, but no right upper quadrant pain, follow-up hepatitis panel, less likely hepatitis, improving with IV antibiotic, right upper quadrant ultrasound does not show any acute changes Code(s): R74.0 - NONSPEC ELEV OF LEVELS OF TRANSAMNS & LACTIC ACID DEHYDRGNSE (3) UTI (urinary tract infection) Assessment/Plan: Patient is asymptomatic but have RBCs, bacteria and few WBC in the urine possibility of UTI , urine culture contaminated respiratory: Continue Zosyn follow-up Code(s): N39.0 - URINARY TRACT INFECTION, SITE NOT SPECIFIED Qualifiers: Urinary tract infection type: site unspecified Hematuria presence: with hematuria Qualified Code(s): N39.0 - Urinary tract infection, site not specified; R31.9 - Hematuria, unspecified (4) Type 2 diabetes mellitus Assessment/Plan: Follow-up Bumex continue Accu-Chek before meals and bedtime with correction dose insulin follow-up hemoglobin A1c, diabetic diet. Code(s): E11.9 - TYPE 2 DIABETES MELLITUS WITHOUT COMPLICATIONS (5) Hypertension Assessment/Plan: Hold BP meds for hypertension Code(s): I10 - ESSENTIAL (PRIMARY) HYPERTENSION (6) Lung nodule Assessment/Plan: CT scan shows lung nodule follow-up as an outpatient Code(s): R91.1 - SOLITARY PULMONARY NODULE (7) Obesity (BMI 30-39.9) Assessment/Plan: Weight management and nutrition consult as an outpatient. Code(s): E66.9 - OBESITY, UNSPECIFIED (8) Hypokalemia Assessment/Plan: Repleted follow-up BMP in a.m. Problems reviewed: Yes Code(s): E87.6 - HYPOKALEMIA (9) Hypomagnesemia Assessment/Plan: Repleted follow-up magnesium level in a.m. Code(s): E83.42 - HYPOMAGNESEMIA
[2020-04-04] MEDS: ACETAMINOPHEN 325 MG TABLET (FP) PO PRN (14:06)
[2020-04-04] MEDS ORDERED: MAGNESIUM SULF 50% (8.12 MEQ/2 ML-1 GM VIAL) IVPB ONE (15:56)
[2020-04-04] MEDS ORDERED: POTASSIUM CHLORIDE TABS 20 MEQ TABLET.ER (FP) PO ONE (15:56)
[2020-04-04] MEDS ORDERED: MAGNESIUM SULFATE IN WATER 2 GM/50 ML IVPB IVPB ONE (16:00)
--- NOTE | 2020-04-04 17:37 | PN ---
Progress Note, Physician History of Present Illness: Pt is feeling a bit better, is afebrile. Currently ambulating around the room. No specific complaints. Blood culture results noted. - Current Medication List Current Medications: Active Medications Acetaminophen (Tylenol -) 650 mg PO Q6H PRN PRN Reason: FEVER Last Admin: 04/04/20 14:06 Dose: 650 mg Documented by: Enoxaparin Sodium (Lovenox -) 40 mg SQ DAILY [facility] Last Admin: 04/04/20 10:44 Dose: 40 mg Documented by: Lactated Ringer's (Lactated Ringers Solution) 1,000 ml in 1,000 mls @ 1,000 mls/hr IV ASDIR [facility] Last Admin: 04/04/20 10:45 Dose: Not Given Documented by: Sodium Chloride (Normal Saline -) 1,000 mls @ 100 mls/hr IV ASDIR BELLA Last Admin: 04/04/20 15:10 Dose: 100 mls/hr Documented by: Piperacillin Sod/Tazobactam (Sod 4.5 gm/ Dextrose) 100 mls @ 200 mls/hr IVPB Q6H-IV [facility]; Protocol Last Admin: 04/04/20 15:31 Dose: 200 mls/hr Documented by: Insulin Aspart (Novolog Vial Sliding Scale -) 1 vial SQ TIDAC [facility]; Protocol Last Admin: 04/04/20 17:05 Dose: Not Given Documented by: Ondansetron HCl (Zofran Injection) 4 mg IVPUSH Q6H PRN PRN Reason: NAUSEA Pantoprazole Sodium (Protonix Iv) 40 mg IVPUSH DAILY [facility] Last Admin: 04/04/20 10:44 Dose: 40 mg Documented by: - Objective Vital Signs: Vital Signs Temperature 98.9 F 04/04/20 09:04 Pulse Rate 88 04/04/20 09:04 Respiratory Rate 18 04/04/20 09:04 Blood Pressure 125/70 04/04/20 09:04 O2 Sat by Pulse Oximetry (%) 99 04/04/20 09:04 Constitutional: Yes: No Distress, Calm Cardiovascular: Yes: Regular Rate and Rhythm Respiratory: Yes: CTA Bilaterally Gastrointestinal: Yes: Normal Bowel Sounds, Soft, Abdomen, Obese Genitourinary: Yes: WNL Integumentary: Yes: WNL Neurological: Yes: Alert, Oriented Labs: CBC, BMP 04/04/20 09:50 04/04/20 06:35 INR, PTT INR 1.03 (0.83-1.09) 04/03/20 07:50 Laboratory Last Values WBC 8.6 K/mm3 (4.0-10.0) 04/04/20 09:50 RBC 3.75 M/mm3 (3.60-5.2) 04/04/20 09:50 Hgb 10.4 GM/dL (10.7-15.3) L 04/04/20 09:50 Hct 31.1 % (32.4-45.2) L 04/04/20 09:50 MCV 83.0 fl (80-96) 04/04/20 09:50 MCH 27.7 pg (25.7-33.7) 04/04/20 09:50 MCHC 33.4 g/dl (32.0-36.0) 04/04/20 09:50 RDW 14.6 % (11.6-15.6) 04/04/20 09:50 Plt Count 260 K/MM3 (134-434) 04/04/20 09:50 MPV 9.2 fl (7.5-11.1) 04/04/20 09:50 Absolute Neuts (auto) 7.5 K/mm3 (1.5-8.0) 04/04/20 09:50 Neutrophils % 88.0 % (42.8-82.8) H 04/04/20 09:50 Neutrophils % (Manual) 82.3 % (42.8-82.8) 04/03/20 07:50 Band Neutrophils % 11.5 % 04/03/20 07:50 Lymphocytes % 6.1 % (8-40) L D 04/04/20 09:50 Lymphocytes % (Manual) 3.1 % (8-40) L 04/03/20 07:50 Monocytes % 4.5 % (3.8-10.2) D 04/04/20 09:50 Monocytes % (Manual) 1 % (3.8-10.2) L 04/03/20 07:50 Eosinophils % 1.1 % (0-4.5) D 04/04/20 09:50 Eosinophils % (Manual) 0.0 % (0-4.5) 04/03/20 07:50 Basophils % 0.3 % (0-2.0) 04/04/20 09:50 Basophils % (Manual) 0.0 % (0-2.0) 04/03/20 07:50 Myelocytes % (Man) 0 % (0-2) 04/03/20 07:50 Promyelocytes % (Man) 0 % (0-2) 04/03/20 07:50 Blast Cells % (Manual) 0 % (0-0) 04/03/20 07:50 Nucleated RBC % 0 % (0-0) 04/04/20 09:50 Metamyelocytes 0 % (0-2) 04/03/20 07:50 Hypochromia 0 04/03/20 07:50 Platelet Estimate Normal 04/03/20 07:50 Polychromasia 0 04/03/20 07:50 Poikilocytosis 0 04/03/20 07:50 Anisocytosis 0 04/03/20 07:50 Microcytosis 0 04/03/20 07:50 Macrocytosis 0 04/03/20 07:50 PT with INR 12.10 SEC (9.7-13.0) 04/03/20 07:50 INR 1.03 (0.83-1.09) 04/03/20 07:50 PTT (Actin FS) 26.9 SECONDS (25.2-36.5) 04/03/20 07:50 D-Dimer 2325 ng/ml (0-500) H 04/03/20 07:50 VBG pH 7.386 (7.310-7.410) 04/03/20 07:54 POC VBG pCO2 44.9 mmHg (38-52) 04/03/20 07:54 POC VBG pO2 43.4 mmHg (28-48) 04/03/20 07:54 VBG HCO3 26.3 mmol/L (23-29) 04/03/20 07:54 VBG O2 Sat (Leanne) 78.4 % (70-80) 04/03/20 07:54 VBG Base Excess 1.0 mmol/L (-2-2) 04/03/20 07:54 Sodium 141 mmol/L (136-145) 04/04/20 06:35 Potassium 3.3 mmol/L (3.5-5.1) L 04/04/20 06:35 Chloride 106 mmol/L (98-107) 04/04/20 06:35 Carbon Dioxide 26 mmol/L (21-32) 04/04/20 06:35 Anion Gap 9 MMOL/L (8-16) 04/04/20 06:35 BUN 9.2 mg/dL (7-18) 04/04/20 06:35 Creatinine 0.7 mg/dL (0.55-1.3) 04/04/20 06:35 Est GFR (CKD-EPI)AfAm 105.38 04/04/20 06:35 Est GFR (CKD-EPI)NonAf 90.92 04/04/20 06:35 POC Glucometer 131 UNITS (80-120) 04/04/20 17:04 Random Glucose 107 mg/dL (74-106) H 04/04/20 06:35 Hemoglobin A1c % 7.7 % (4.2-6.3) H 04/04/20 09:50 Lactic Acid 2.0 mmol/L (0.4-2.0) 04/03/20 15:30 Calcium 7.9 mg/dL (8.5-10.1) L 04/04/20 06:35 Magnesium 1.5 mg/dL (1.8-2.4) L 04/04/20 06:35 Ferritin 56.1 ng/ml (8-388) 04/03/20 07:50 Total Bilirubin 4.1 mg/dL (0.2-1) H D 04/04/20 06:35 Direct Bilirubin 0.7 mg/dL (0.0-0.2) H 04/03/20 07:50 AST 146 U/L (15-37) H 04/04/20 06:35 ALT 154 U/L (13-61) H 04/04/20 06:35 Alkaline Phosphatase 131 U/L (45-117) H 04/04/20 06:35 LD Total 406 U/L (84-246) H 04/03/20 07:50 Creatine Kinase 130 U/L (26-192) 04/03/20 07:50 CK-MB (CK-2) < 1.0 ng/mL (0.5-3.6) 04/03/20 07:50 Troponin I < 0.02 ng/ml (0.00-0.05) 04/03/20 18:15 C-Reactive Protein 2.0 MG/DL (0.00-0.3) H 04/03/20 07:50 Total Protein 6.1 g/dl (6.4-8.2) L 04/04/20 06:35 Albumin 2.8 g/dl (3.4-5.0) L 04/04/20 06:35 Lipase 86 U/L (73-393) 04/03/20 07:50 Urine Color Yellow 04/03/20 08:12 Urine Appearance Error 04/03/20 08:12 Urine pH 6.0 (5.0-8.0) 04/03/20 08:12 Ur Specific [place] 1.018 (1.010-1.035) 04/03/20 08:12 Urine Protein Negative (NEGATIVE) 04/03/20 08:12 Urine Glucose (UA) Negative (NEGATIVE) 04/03/20 08:12 Urine Ketones Negative (NEGATIVE) 04/03/20 08:12 Urine Blood Trace (NEGATIVE) 04/03/20 08:12 Urine Nitrite Negative (NEGATIVE) 04/03/20 08:12 Urine Bilirubin Negative (NEGATIVE) 04/03/20 08:12 Urine Urobilinogen 1.0 mg/dL (0.2-1.0) 04/03/20 08:12 Ur Leukocyte Esterase Trace (NEGATIVE) 04/03/20 08:12 Urine WBC (Auto) 4 /uL (0-25.8) 04/03/20 08:12 Urine RBC (Auto) 54 /uL (0-23.9) 04/03/20 08:12 Urine Casts (Auto) 1 /uL (0-3.1) 04/03/20 08:12 U Epithel Cells (Auto) 14 /uL (0-25.1) 04/03/20 08:12 Urine Bacteria (Auto) 1089 /uL (0-1359) 04/03/20 08:12 COVID-19 (MIRELLA) Not detected (Not Detected) 04/03/20 07:50 Microbiology 04/03/20 07:50 Blood - Peripheral Venous Blood Culture - Preliminary Lactose Fermenting Neg Bacilli 04/03/20 07:50 Blood - Peripheral Venous Blood Culture - Preliminary Lactose Fermenting Neg Bacilli 04/03/20 08:12 Urine - Urine Clean Catch Urine Culture - Final Contaminated: Please Repeat Problem List - Problems (1) Severe sepsis Code(s): A41.9 - SEPSIS, UNSPECIFIED ORGANISM; R65.20 - SEVERE SEPSIS WITHOUT SEPTIC SHOCK (2) UTI (urinary tract infection) Code(s): N39.0 - URINARY TRACT INFECTION, SITE NOT SPECIFIED Qualifiers: Urinary tract infection type: site unspecified Hematuria presence: with hematuria Qualified Code(s): N39.0 - Urinary tract infection, site not specified; R31.9 - Hematuria, unspecified (3) Hypertension Code(s): I10 - ESSENTIAL (PRIMARY) HYPERTENSION (4) Obesity (BMI 30-39.9) Code(s): E66.9 - OBESITY, UNSPECIFIED (5) Transaminitis Code(s): R74.0 - NONSPEC ELEV OF LEVELS OF TRANSAMNS & LACTIC ACID DEHYDRGNSE (6) Type 2 diabetes mellitus Code(s): E11.9 - TYPE 2 DIABETES MELLITUS WITHOUT COMPLICATIONS (7) Gram-negative bacteremia Code(s): R78.81 - BACTEREMIA Assessment/Plan 65 y.o. female with PMH of DM, morbid obesity, HTN, HLD, asthma, s/p cholecystectomy presents with c/o fever/n/v since this morning. Febrile and tachycardic in ER with episode of hypotension Severe Sepsis Gram negative bacteremia UTI Fever Transaminitis w/o abd pain Nausea/Vomiting -- appears to be improving. Afebrile, wbc normal, lactic acid now normal -- AST/ALT trending down, Tbili elevated -- continue Zosyn -- Blood cultures +GNB, follow up isolate -- repeat Urine Cx sent, initial contaminated -- GI to follow monitor closely
[2020-04-04] MEDS ORDERED: DOCUSATE SODIUM 100 MG CAPSULE (FP) PO PRN (18:09)
--- NOTE | 2020-04-04 18:21 | EKG ---
Test Reason : Blood Pressure : / mmHG Vent. Rate : 097 BPM Atrial Rate : 097 BPM P-R Int : 154 ms QRS Dur : 144 ms QT Int : 392 ms P-R-T Axes : 045 -59 -05 degrees QTc Int : 497 ms NORMAL SINUS RHYTHM LEFT AXIS DEVIATION RIGHT BUNDLE BRANCH BLOCK INFERIOR INFARCT (CITED ON OR BEFORE 03-APR-2020) ANTERIOR INFARCT ABNORMAL ECG Confirmed by MD OTT MOYSES ([id number]) on 04/04/2020 6:21:19 PM Referred By: Confirmed By:JALEN OTT MD
--- NOTE | 2020-04-04 18:25 | EKG ---
Test Reason : Blood Pressure : / mmHG Vent. Rate : 136 BPM Atrial Rate : 136 BPM P-R Int : 130 ms QRS Dur : 118 ms QT Int : 318 ms P-R-T Axes : 032 -87 012 degrees QTc Int : 478 ms SINUS TACHYCARDIA LEFT AXIS DEVIATION RIGHT BUNDLE BRANCH BLOCK INFERIOR INFARCT , AGE UNDETERMINED CANNOT RULE OUT ANTERIOR INFARCT , AGE UNDETERMINED ABNORMAL ECG NO PREVIOUS ECGS AVAILABLE Confirmed by MD NAMRATA, JALEN ([id number]) on 04/04/2020 6:25:06 PM Referred By: Confirmed By:JAELN OTT MD
[2020-04-04] MEDS: MAG HYDROX/AL HYDROX/SIMETH 30 ML UNIT-DOSE CUP PO SCH (23:52)
[2020-04-05] MEDS ORDERED: PIPERACILLIN/TAZOBACTAM 4.5 GM VIAL IVPB ONE ×4 (02:42→21:00)
[2020-04-05] MEDS ORDERED: DEXTROSE 5%-WATER 100 ML IVPB ONE ×4 (02:43→21:00)
[2020-04-05] MEDS: PIPERACILLIN/TAZOB 4.5 GM 4.5 GM in DEXTROSE 5%-WATER 100 ML IVPB SCH ×4 (02:49→21:54)
[2020-04-05] MEDS: SODIUM CHLORIDE 1,000 ML IV SCH ×2 (04:12→15:57)
[2020-04-05] MEDS: INSULIN SLIDING SCALE (NOVOLOG) 1 VIAL SQ SCH ×3 (06:48→17:14)
[2020-04-05] MEDS: MAG HYDROX/AL HYDROX/SIMETH 30 ML UNIT-DOSE CUP PO SCH ×3 (06:49→17:14)
[2020-04-05] MEDS: ENOXAPARIN NA (PORCINE) 40 MG/0.4 ML DISP.SYRIN SQ SCH (10:02)
[2020-04-05] MEDS: PANTOPRAZOLE SODIUM 40 MG VIAL IVPUSH SCH (10:02)
[2020-04-05] MEDS: LACTATED RINGERS SOLUTION 1,000 ML/1,000 ML INFUS.BAG IV SCH (11:57)
--- NOTE | 2020-04-05 13:52 | PN ---
Progress Note, Physician History of Present Illness: feels better cx results noted repeat cx pending - Current Medication List Current Medications: Active Medications Acetaminophen (Tylenol -) 650 mg PO Q6H PRN PRN Reason: FEVER Last Admin: 04/04/20 14:06 Dose: 650 mg Documented by: Al Hydroxide/Mg Hydroxide (Mylanta Oral Suspension -) 30 ml PO Q6HPO [facility] Last Admin: 04/05/20 13:38 Dose: 30 ml Documented by: Docusate Sodium (Colace -) 100 mg PO Q12H PRN PRN Reason: CONSTIPATION Enoxaparin Sodium (Lovenox -) 40 mg SQ DAILY [facility] Last Admin: 04/05/20 10:02 Dose: 40 mg Documented by: Lactated Ringer's (Lactated Ringers Solution) 1,000 ml in 1,000 mls @ 1,000 mls/hr IV ASDIR [facility] Last Admin: 04/05/20 11:57 Dose: Not Given Documented by: Sodium Chloride (Normal Saline -) 1,000 mls @ 100 mls/hr IV ASDIR [facility] Last Admin: 04/05/20 04:12 Dose: 100 mls/hr Documented by: Piperacillin Sod/Tazobactam (Sod 4.5 gm/ Dextrose) 100 mls @ 200 mls/hr IVPB Q6H-IV [facility]; Protocol Last Admin: 04/05/20 10:01 Dose: 200 mls/hr Documented by: Insulin Aspart (Novolog Vial Sliding Scale -) 1 vial SQ TIDAC [facility]; Protocol Last Admin: 04/05/20 11:58 Dose: Not Given Documented by: Ondansetron HCl (Zofran Injection) 4 mg IVPUSH Q6H PRN PRN Reason: NAUSEA Pantoprazole Sodium (Protonix Iv) 40 mg IVPUSH DAILY [facility] Last Admin: 04/05/20 10:02 Dose: 40 mg Documented by: - Objective Vital Signs: Vital Signs Temperature 98.5 F 04/05/20 10:00 Pulse Rate 83 04/05/20 10:00 Respiratory Rate 18 04/05/20 10:00 Blood Pressure 162/81 04/05/20 10:00 O2 Sat by Pulse Oximetry (%) 99 04/05/20 10:00 Constitutional: Yes: No Distress, Calm Cardiovascular: Yes: S1, S2 Respiratory: Yes: Regular, CTA Bilaterally Gastrointestinal: Yes: Normal Bowel Sounds, Soft Musculoskeletal: Yes: WNL Extremities: Yes: WNL Neurological: Yes: Alert, Oriented Psychiatric: Yes: Alert, Oriented Labs: CBC, BMP 04/04/20 09:50 04/04/20 06:35 INR, PTT INR 1.03 (0.83-1.09) 04/03/20 07:50 Assessment/Plan Problem List - Problems (1) Severe sepsis Code(s): A41.9 - SEPSIS, UNSPECIFIED ORGANISM; R65.20 - SEVERE SEPSIS WITHOUT SEPTIC SHOCK (2) UTI (urinary tract infection) Code(s): N39.0 - URINARY TRACT INFECTION, SITE NOT SPECIFIED Qualifiers: Urinary tract infection type: site unspecified Hematuria presence: with hematuria Qualified Code(s): N39.0 - Urinary tract infection, site not specif ied; R31.9 - Hematuria, unspecified (3) Hypertension Code(s): I10 - ESSENTIAL (PRIMARY) HYPERTENSION (4) Obesity (BMI 30-39.9) Code(s): E66.9 - OBESITY, UNSPECIFIED (5) Transaminitis Code(s): R74.0 - NONSPEC ELEV OF LEVELS OF TRANSAMNS & LACTIC ACID DEHYDRGNSE (6) Type 2 diabetes mellitus Code(s): E11.9 - TYPE 2 DIABETES MELLITUS WITHOUT COMPLICATIONS 7 gm negative bacteremia Assessment/Plan 65 y.o. female with PMH of DM, morbid obesity, HTN, HLD, asthma, s/p cholecystectomy presents with c/o fever/n/v since this morning. Febrile and tachycardic in ER with episode of hypotension Severe Sepsis Fever Transaminitis w/o abd pain Nausea/Vomiting UTI gm negative bacteremia continue zosyn await for repeat blood cx
[2020-04-05 15:07] LABS: HEPATITIS C VIRUS EIA <0.1 s/co ratio (0.0-0.9)
--- NOTE | 2020-04-05 16:05 | PN ---
Physical Exam: SUBJECTIVE: Patient seen and examined. Pt. complains of some epigastric discomfort after having magnesium today. Pt. endorses polyuria today. Pt. denies ever having any surgical procedures, cough, fevers, diarrhea, constipation, dysuria, IVDA or sore throat. Pt. states she last saw her dentist last year and was not told of anything wrong in her mouth. Pt. states that she has not had any dental procedures done recently. OBJECTIVE: Vital Signs Period Temp Pulse Resp BP Sys/Mckeon Pulse Ox Last 24 Hr 98.5 F-98.9 F 83-94 18-20 149-162/74-81 99-99 GENERAL: The patient is awake, alert, and fully oriented, in no acute distress. HEAD: Normal with no signs of trauma. EYES: Sclera anicteric, conjunctiva clear. ENT: Ears normal, nares patent, oropharynx with non-tender black lesion on cheek, moist mucous membranes. NECK: Trachea midline, full range of motion, supple, No LAD LUNGS: Breath sounds equal, clear to auscultation bilaterally, no wheezes, no crackles, no accessory muscle use. HEART: Regular rate and rhythm, S1, S2 without murmur ABDOMEN: Soft, epigastric tenderness, nondistended, normoactive bowel sounds EXTREMITIES: 2+ dorsal pedal pulses, warm, well-perfused, no edema. NEUROLOGICAL: Normal speech, gait not observed. PSYCH: Normal mood, normal affect. SKIN: Warm, dry, normal turgor Laboratory Results - last 24 hr 04/03/20 04/04/20 04/05/20 18:15 17:04 06:48 POC Glucometer 131 134 Hepatitis C Antibody <0.1 04/05/20 11:41 POC Glucometer 145 Hepatitis C Antibody Active Medications Generic Name Dose Route Start Last Admin Trade Name Freq PRN Reason Stop Dose Admin Acetaminophen 650 mg 04/03/20 15:34 04/04/20 14:06 Tylenol - PO 650 mg Q6H PRN Administration FEVER Al Hydroxide/Mg Hydroxide 30 ml 04/05/20 00:00 04/05/20 13:38 Mylanta Oral Suspension - PO 30 ml Q6HPO [facility] Administration Docusate Sodium 100 mg 04/04/20 18:09 Colace - PO Q12H PRN CONSTIPATION Enoxaparin Sodium 40 mg 04/03/20 12:00 04/05/20 10:02 Lovenox - SQ 40 mg DAILY [facility] Administration Lactated Ringer's 1,000 ml in 1,000 mls @ 1,000 mls/hr 04/03/20 08:00 04/05/20 11:57 Lactated Ringers Solution IV Not Given ASDIR [facility] Sodium Chloride 1,000 mls @ 100 mls/hr 04/03/20 12:00 04/05/20 15:57 Normal Saline - IV 100 mls/hr ASDIR [facility] Administration Piperacillin Sod/Tazobactam 100 mls @ 200 mls/hr 04/03/20 15:00 04/05/20 15:55 Sod 4.5 gm/ Dextrose IVPB 200 mls/hr Q6H-IV [facility] Administration Protocol Insulin Aspart 1 vial 04/03/20 16:30 04/05/20 11:58 Novolog Vial Sliding Scale - SQ Not Given TIDAC [facility] Protocol Ondansetron HCl 4 mg 04/03/20 11:58 Zofran Injection IVPUSH Q6H PRN NAUSEA Pantoprazole Sodium 40 mg 04/04/20 10:00 04/05/20 10:02 Protonix Iv IVPUSH 40 mg DAILY [facility] Administration ASSESSMENT/PLAN: Pt. is a 65 y.o. Azeri-speaking F w/ PMHx. of HTN, HLD, Morbid Obesity, Asthma and DM presents with nausea, vomiting and chills. Pt. found to be bactermic. #Severe Sepsis of unknown source. Pt. has 2 positive sets of blood cultures growing Gram Neg. Bacilli, f/u Rpt. c/w Zosyn; ID Consult appreciated UA positive, however has no symptoms and UCx. was contaminated Pt. has suspicious lesion in mouth that may be source of infection if none other identified however will repeat UA and follow up cultures. c/w aggressive hydration #Transaminitis LFTs improving today continue to monitor Elevated TBILI to 4.1 today will monitor. Pt. is s/p CCY and Abd. Us is negative for biliary obstruction GI consult appreciated. Zofran for nausea #DM2 A1c: 7.7 hold Metformin c/w ISS and BGM ACHS #DVT Ppx. Lovenox SQ Visit type - Emergency Visit Emergency Visit: Yes ED Registration Date: 04/03/20 Care time: The patient presented to the Emergency Department on the above date and was hospitalized for further evaluation of their emergent condition. - New Patient This patient is new to me today: No - Critical Care Critical Care patient: No - Discharge Referral Referred to [facility] Med P.C.: No - Medication Review Med list reviewed for High Risk Meds patients 65 and older: Yes ATTENDING PHYSICIAN STATEMENT I saw and evaluated the patient. I reviewed the resident's note and discussed the case with the resident. I agree with the resident's findings and plan as documented. SUBJECTIVE: OBJECTIVE: ASSESSMENT AND PLAN:
[2020-04-05 18:07] LABS: HEP B CORE AB, TOT Negative (Negative)
--- NOTE | 2020-04-05 20:05 | PN ---
Teaching Attending Note Name of Resident: Roberto Vega ATTENDING PHYSICIAN STATEMENT I saw and evaluated the patient. I reviewed the resident's note and discussed the case with the resident. I agree with the resident's findings and plan as documented. SUBJECTIVE: Patient seen and examined at bedside, denies complaints, admitted for UTI w/ sepsis, now resolved. VSS. OBJECTIVE: GA comfortable, aaox3, eating breakfast HEENT NC/aT, EOMI, MMM Chest CTAB CVS s1, S2+, RRR Abd obese, Soft, NT, ND, BS+ Ext no LE edema Vital Signs - 24 hr 04/04/20 04/05/20 04/05/20 20:26 09:00 10:00 Temperature 98.5 F Pulse Rate 83 Respiratory 20 18 Rate Blood Pressure 162/81 O2 Sat by Pulse 99 99 99 Oximetry (%) 04/05/20 18:35 Temperature 98.8 F Pulse Rate 81 Respiratory 18 Rate Blood Pressure 132/69 O2 Sat by Pulse 96 Oximetry (%) Microbiology 04/03/20 07:50 Blood - Peripheral Venous Blood Culture - Final Lactose Fermenting Neg Bacilli 04/03/20 07:50 Blood - Peripheral Venous Blood Culture - Final Klebsiella Pneumoniae 04/03/20 08:12 Urine - Urine Clean Catch Urine Culture - Final Contaminated: Please Repeat Laboratory Results - last 24 hr 04/03/20 04/05/20 04/05/20 18:15 06:48 11:41 POC Glucometer 134 145 Hep A IgM Ab Confirm Negative Hepatitis A Ab Total Positive H Hep Bs Antigen Negative Hep Bs Antibody Non reactive Hep B Core Total Ab Negative Hep B Core IgM Ab Negative Hepatitis Be Antibody Negative Hepatitis Be Antigen Negative Hepatitis C Antibody <0.1 04/05/20 17:12 POC Glucometer 135 Hep A IgM Ab Confirm Hepatitis A Ab Total Hep Bs Antigen Hep Bs Antibody Hep B Core Total Ab Hep B Core IgM Ab Hepatitis Be Antibody Hepatitis Be Antigen Hepatitis C Antibody Home Medications Medication Instructions Recorded Enalapril Maleate 0 mg PO DAILY 04/03/20 Glipizide [Glipizide Xl] 0 mg PO DAILY 04/03/20 Hydrochlorothiazide [Hctz -] 0 mg PO DAILY 04/03/20 Simvastatin 0 gm MC DAILY 04/03/20 Current Medications Generic Name Dose Route Start Last Admin Trade Name Freq PRN Reason Stop Dose Admin Acetaminophen 650 mg 04/03/20 15:34 04/04/20 14:06 Tylenol - PO 650 mg Q6H PRN Administration FEVER Al Hydroxide/Mg Hydroxide 30 ml 04/05/20 00:00 04/05/20 17:14 Mylanta Oral Suspension - PO 30 ml Q6HPO [facility] Administration Docusate Sodium 100 mg 04/04/20 18:09 Colace - PO Q12H PRN CONSTIPATION Enoxaparin Sodium 40 mg 04/03/20 12:00 04/05/20 10:02 Lovenox - SQ 40 mg DAILY [facility] Administration Lactated Ringer's 1,000 ml in 1,000 mls @ 1,000 mls/hr 04/03/20 08:00 04/05/20 11:57 Lactated Ringers Solution IV Not Given ASDIR [facility] Sodium Chloride 1,000 mls @ 100 mls/hr 04/03/20 12:00 04/05/20 15:57 Normal Saline - IV 100 mls/hr ASDIR [facility] Administration Piperacillin Sod/Tazobactam 100 mls @ 200 mls/hr 04/03/20 15:00 04/05/20 15:55 Sod 4.5 gm/ Dextrose IVPB 200 mls/hr Q6H-IV [facility] Administration Protocol Insulin Aspart 1 vial 04/03/20 16:30 04/05/20 17:14 Novolog Vial Sliding Scale - SQ Not Given TIDAC [facility] Protocol Ondansetron HCl 4 mg 04/03/20 11:58 Zofran Injection IVPUSH Q6H PRN NAUSEA Pantoprazole Sodium 40 mg 04/04/20 10:00 04/05/20 10:02 Protonix Iv IVPUSH 40 mg DAILY [facility] Administration ASSESSMENT AND PLAN: 65 F UTI Sepsis (resolved) HTN HLD T2DM s/p cholecystectomy Morbid obesity Plan: Cont. Zosyn for UTI Supplement PPI Strict glycemic control Timed voiding, ?neurogenic bladder, obtain bladder scan DVT ppx: Lovenox SC
[2020-04-06] MEDS ORDERED: PIPERACILLIN/TAZOBACTAM 4.5 GM VIAL IVPB ONE ×4 (02:02→20:23)
[2020-04-06] MEDS ORDERED: DEXTROSE 5%-WATER 100 ML IVPB ONE ×4 (02:02→20:23)
[2020-04-06] MEDS: PIPERACILLIN/TAZOB 4.5 GM 4.5 GM in DEXTROSE 5%-WATER 100 ML IVPB SCH ×4 (02:12→20:33)
[2020-04-06] MEDS: MAG HYDROX/AL HYDROX/SIMETH 30 ML UNIT-DOSE CUP PO SCH ×5 (02:12→17:45)
[2020-04-06] MEDS: INSULIN SLIDING SCALE (NOVOLOG) 1 VIAL SQ SCH ×3 (06:22→17:45)
--- NOTE | 2020-04-06 06:52 | CON.GI ---
Consult Consult Specialty:: GI - History of Present Illness History of Present Illness: 65 y.o. female with PMH of DM, morbid obesity, HTN, HLD, and asthma, s/p cholecystectomy s/p ERCP with CBD stones who went to the ED because of epigastric pain, nausea and vomiting and high grade fever. I saw the patient yesterday feels better only has mild epigastric pain denies nausea and vomiting - Past Medical History Cardio/Vascular: Yes: HTN, Hyperlipdemia Pulmonary: Yes: Asthma ...: No Endocrine: Yes: Diabetes Mellitus - Past Surgical History Past Surgical History: Yes: Cholecystectomy - Alcohol/Substance Use Hx Alcohol Use: No - Smoking History Smoking history: Never smoked Home Medications - Allergies Allergies/Adverse Reactions: Allergies Allergy/AdvReac Type Severity Reaction Status Date / Time No Known Allergies Allergy Verified 04/03/20 08:02 - Home Medications Home Medications: Ambulatory Orders Enalapril Maleate 0 mg PO DAILY 04/03/20 Glipizide [Glipizide Xl] 0 mg PO DAILY 04/03/20 Hydrochlorothiazide [Hctz -] 0 mg PO DAILY 04/03/20 Simvastatin 0 gm MC DAILY 04/03/20 Physical Exam-GI Vital Signs: Vital Signs Temperature 98.2 F 04/06/20 06:00 Pulse Rate 93 H 04/06/20 06:00 Respiratory Rate 18 04/06/20 06:00 Blood Pressure 137/74 04/06/20 06:00 O2 Sat by Pulse Oximetry (%) 99 04/06/20 06:00 Constitutional: Yes: Obese Eyes: Yes: Conjunctiva Clear, Occular Prosthesis Neck: Yes: Supple Cardiovascular: Yes: Regular Rate and Rhythm Respiratory: Yes: CTA Bilaterally ...Palpate: Yes: Soft, Tenderness, Epigastium. No: Firm/Rigid, Guarding, Hepatomegaly, Mass, Pulsatile Mass, Splenomegaly Edema: LLE: 2+, RLE: 2+ Labs: CBC, BMP 04/04/20 09:50 04/04/20 06:35 INR, PTT INR 1.03 (0.83-1.09) 04/03/20 07:50 Problem List - Problems (1) Sepsis Assessment/Plan: associated with elevated liver enzymes abdominal pain r/o secondary to cholangitis R> patient now with bilateral leg edema, consider to decrease IV fluids IV antibiotics MRCP Code(s): A41.9 - SEPSIS, UNSPECIFIED ORGANISM Qualifiers: Sepsis type: sepsis due to unspecified organism Sepsis acute organ dysfunction status: unspecified Qualified Code(s): A41.9 - Sepsis, unspecified organism
[2020-04-06 07:29] LABS: BASO % 0.7 % (0-2.0); EOS % 2.5 % (0-4.5); HEMATOCRIT 30.1 % (32.4-45.2); HEMOGLOBIN 10.1 GM/dL (10.7-15.3); LYMPH % 18.8 % (8-40); MCH 27.7 pg (25.7-33.7); MCHC 33.4 g/dl (32.0-36.0); MEAN CELL VOLUME 82.8 fl (80-96); MEAN PLT VOLUME 8.8 fl (7.5-11.1); MONO % 8.7 % (3.8-10.2); NEUT % 69.3 % (42.8-82.8); PLATELET COUNT 252 K/MM3 (134-434); RBC 3.64 M/mm3 (3.60-5.2); RDW 14.4 % (11.6-15.6); WHITE BLOOD COUNT 4.7 K/mm3 (4.0-10.0)
[2020-04-06 07:44] LABS: ALBUMIN 2.9 g/dl (3.4-5.0); BILIRUBIN,DIRECT 0.8 mg/dL (0.0-0.2); CALCIUM 7.8 mg/dL (8.5-10.1); CREATININE 0.7 mg/dL (0.55-1.3); MAGNESIUM 2.1 mg/dL (1.8-2.4); PHOSPHOROUS 1.7 mg/dL (2.5-4.9); POTASSIUM 3.8 mmol/L (3.5-5.1); TOT PROT 6.4 g/dl (6.4-8.2)
[2020-04-06 07:48] LABS: BILIRUBIN,TOTAL 1.3 mg/dL (0.2-1)
[2020-04-06] MEDS: ENOXAPARIN NA (PORCINE) 40 MG/0.4 ML DISP.SYRIN SQ SCH (11:10)
[2020-04-06] MEDS: PANTOPRAZOLE SODIUM 40 MG VIAL IVPUSH SCH (11:11)
--- NOTE | 2020-04-06 11:26 | PN ---
Progress Note, Physician History of Present Illness: afebrile stable repeat cx pending awaiting identification of the organism - Current Medication List Current Medications: Active Medications Acetaminophen (Tylenol -) 650 mg PO Q6H PRN PRN Reason: FEVER Last Admin: 04/04/20 14:06 Dose: 650 mg Documented by: Al Hydroxide/Mg Hydroxide (Mylanta Oral Suspension -) 30 ml PO Q6HPO [facility] Last Admin: 04/06/20 11:24 Dose: Not Given Documented by: Docusate Sodium (Colace -) 100 mg PO Q12H PRN PRN Reason: CONSTIPATION Enoxaparin Sodium (Lovenox -) 40 mg SQ DAILY [facility] Last Admin: 04/06/20 11:10 Dose: 40 mg Documented by: Lactated Ringer's (Lactated Ringers Solution) 1,000 ml in 1,000 mls @ 1,000 mls/hr IV ASDIR [facility] Last Admin: 04/05/20 11:57 Dose: Not Given Documented by: Sodium Chloride (Normal Saline -) 1,000 mls @ 100 mls/hr IV ASDIR [facility] Last Admin: 04/05/20 15:57 Dose: 100 mls/hr Documented by: Piperacillin Sod/Tazobactam (Sod 4.5 gm/ Dextrose) 100 mls @ 200 mls/hr IVPB Q6H-IV [facility]; Protocol Last Admin: 04/06/20 11:10 Dose: 200 mls/hr Documented by: Insulin Aspart (Novolog Vial Sliding Scale -) 1 vial SQ TIDAC [facility]; Protocol Last Admin: 04/06/20 11:24 Dose: Not Given Documented by: Ondansetron HCl (Zofran Injection) 4 mg IVPUSH Q6H PRN PRN Reason: NAUSEA Pantoprazole Sodium (Protonix Iv) 40 mg IVPUSH DAILY [facility] Last Admin: 04/06/20 11:11 Dose: 40 mg Documented by: - Objective Vital Signs: Vital Signs Temperature 98.2 F 04/06/20 06:00 Pulse Rate 93 H 04/06/20 06:00 Respiratory Rate 18 04/06/20 06:00 Blood Pressure 137/74 04/06/20 06:00 O2 Sat by Pulse Oximetry (%) 99 04/06/20 06:00 Constitutional: Yes: No Distress, Calm Cardiovascular: Yes: S1, S2 Respiratory: Yes: Regular, CTA Bilaterally Gastrointestinal: Yes: Normal Bowel Sounds, Soft Musculoskeletal: Yes: WNL Extremities: Yes: WNL Neurological: Yes: Alert, Oriented Psychiatric: Yes: Alert, Oriented Labs: CBC, BMP 04/06/20 06:30 04/06/20 06:30 INR, PTT INR 1.03 (0.83-1.09) 04/03/20 07:50 Assessment/Plan Problem List - Problems (1) Severe sepsis Code(s): A41.9 - SEPSIS, UNSPECIFIED ORGANISM; R65.20 - SEVERE SEPSIS WITHOUT SEPTIC SHOCK (2) UTI (urinary tract infection) Code(s): N39.0 - URINARY TRACT INFECTION, SITE NOT SPECIFIED Qualifiers: Urinary tract infection type: site unspecified Hematuria presence: with hematuria Qualified Code(s): N39.0 - Urinary tract infection, site not specified; R31.9 - Hematuria, unspecified (3) Hypertension Code(s): I10 - ESSENTIAL (PRIMARY) HYPERTENSION (4) Obesity (BMI 30-39.9) Code(s): E66.9 - OBESITY, UNSPECIFIED (5) Transaminitis Code(s): R74.0 - NONSPEC ELEV OF LEVELS OF TRANSAMNS & LACTIC ACID DEHYDRGNSE (6) Type 2 diabetes mellitus Code(s): E11.9 - TYPE 2 DIABETES MELLITUS WITHOUT COMPLICATIONS 7 gm negative bacteremia Assessment/Plan 65 y.o. female with PMH of DM, morbid obesity, HTN, HLD, asthma, s/p roxanne cystectomy presents with c/o fever/n/v since this morning. Febrile and tachycardic in ER with episode of hypotension Severe Sepsis Fever Transaminitis w/o abd pain Nausea/Vomiting UTI gm negative bacteremia continue zosyn await for repeat blood cx await for identification of the organism rest as per the team
--- NOTE | 2020-04-06 14:18 | PN ---
Physical Exam: SUBJECTIVE: Patient seen and examined. Pt. denies any acute complaints. Pt. tolerating food without changes in bowel or urinary habits. Pt. states that her urinating has decreased. Pt. noted to have infiltrated line in LFA. OBJECTIVE: Vital Signs Period Temp Pulse Resp BP Sys/Mckeon Pulse Ox Last 24 Hr 98.2 F-98.8 F 81-93 18-18 132-156/69-78 96-99 GENERAL: The patient is awake, alert, and fully oriented, in no acute distress. HEAD: Normal with no signs of trauma. EYES: Sclera anicteric, conjunctiva clear. ENT: Ears normal, nares patent, oropharynx with non-tender black lesion on cheek, moist mucous membranes. NECK: Trachea midline, full range of motion, supple, No LAD LUNGS: Breath sounds equal, clear to auscultation bilaterally, no wheezes, no crackles, no accessory muscle use. HEART: Regular rate and rhythm, S1, S2 without murmur ABDOMEN: Soft, nontender, nondistended, normoactive bowel sounds, no guarding, no rebound EXTREMITIES: 2+ dorsal pedal pulses, warm, well-perfused, no edema. NEUROLOGICAL: Normal speech, gait not observed. PSYCH: Normal mood, normal affect. SKIN: Warm, dry, normal turgor Laboratory Results - last 24 hr 04/03/20 04/05/20 04/06/20 18:15 17:12 06:20 WBC RBC Hgb Hct MCV MCH MCHC RDW Plt Count MPV Absolute Neuts (auto) Neutrophils % Lymphocytes % Monocytes % Eosinophils % Basophils % Nucleated RBC % Sodium Potassium Chloride Carbon Dioxide Anion Gap BUN Creatinine Est GFR (CKD-EPI)AfAm Est GFR (CKD-EPI)NonAf POC Glucometer 135 110 Random Glucose Calcium Phosphorus Magnesium Total Bilirubin Direct Bilirubin AST ALT Alkaline Phosphatase Total Protein Albumin Hep A IgM Ab Confirm Negative Hepatitis A Ab Total Positive H Hep Bs Antigen Negative Hep Bs Antibody Non reactive Hep B Core Total Ab Negative Hep B Core IgM Ab Negative Hepatitis Be Antibody Negative Hepatitis Be Antigen Negative Hepatitis C Antibody <0.1 04/06/20 04/06/20 04/06/20 06:30 06:30 11:23 WBC 4.7 RBC 3.64 Hgb 10.1 L Hct 30.1 L MCV 82.8 MCH 27.7 MCHC 33.4 RDW 14.4 Plt Count 252 MPV 8.8 Absolute Neuts (auto) 3.2 Neutrophils % 69.3 D Lymphocytes % 18.8 D Monocytes % 8.7 D Eosinophils % 2.5 D Basophils % 0.7 Nucleated RBC % 0 Sodium 142 Potassium 3.8 Chloride 108 H Carbon Dioxide 26 Anion Gap 8 BUN 6.0 L Creatinine 0.7 Est GFR (CKD-EPI)AfAm 105.38 Est GFR (CKD-EPI)NonAf 90.92 POC Glucometer 136 Random Glucose 121 H Calcium 7.8 L Phosphorus 1.7 L Magnesium 2.1 Total Bilirubin 1.3 H D Direct Bilirubin 0.8 H AST 58 H ALT 106 H Alkaline Phosphatase 125 H Total Protein 6.4 Albumin 2.9 L Hep A IgM Ab Confirm Hepatitis A Ab Total Hep Bs Antigen Hep Bs Antibody Hep B Core Total Ab Hep B Core IgM Ab Hepatitis Be Antibody Hepatitis Be Antigen Hepatitis C Antibody Active Medications Generic Name Dose Route Start Last Admin Trade Name Freq PRN Reason Stop Dose Admin Acetaminophen 650 mg 04/03/20 15:34 04/04/20 14:06 Tylenol - PO 650 mg Q6H PRN Administration FEVER Al Hydroxide/Mg Hydroxide 30 ml 04/05/20 00:00 04/06/20 11:24 Mylanta Oral Suspension - PO Not Given Q6HPO [facility] Docusate Sodium 100 mg 04/04/20 18:09 Colace - PO Q12H PRN CONSTIPATION Enoxaparin Sodium 40 mg 04/03/20 12:00 04/06/20 11:10 Lovenox - SQ 40 mg DAILY [facility] Administration Lactated Ringer's 1,000 ml in 1,000 mls @ 1,000 mls/hr 04/03/20 08:00 04/05/20 11:57 Lactated Ringers Solution IV Not Given ASDIR [facility] Sodium Chloride 1,000 mls @ 100 mls/hr 04/03/20 12:00 04/05/20 15:57 Normal Saline - IV 100 mls/hr ASDIR [facility] Administration Piperacillin Sod/Tazobactam 100 mls @ 200 mls/hr 04/03/20 15:00 04/06/20 11:10 Sod 4.5 gm/ Dextrose IVPB 200 mls/hr Q6H-IV [facility] Administration Protocol Insulin Aspart 1 vial 04/03/20 16:30 04/06/20 11:24 Novolog Vial Sliding Scale - SQ Not Given TIDAC [facility] Protocol Ondansetron HCl 4 mg 04/03/20 11:58 Zofran Injection IVPUSH Q6H PRN NAUSEA Pantoprazole Sodium 40 mg 04/04/20 10:00 04/06/20 11:11 Protonix Iv IVPUSH 40 mg DAILY [facility] Administration ASSESSMENT/PLAN: Pt. is a 65 y.o. Tamaz[place]-speaking F w/ PMHx. of HTN, HLD, Morbid Obesity, Asthma and DM presents with nausea, vomiting and chills. Pt. found to be bacteremic. #Severe Sepsis of unknown source. Pt. has 2 positive sets of blood cultures growing Gram Neg. Bacilli, Rpt. on negative to date. Third set of blood cultures ordered. If the 2nd and 3rd sets of cultures are negative will d/c on PO antibiotics to complete 2 weeks. c/w Zosyn; ID Consult appreciated UA positive, however has no symptoms and UCx. was contaminated. Pt. voiding appropriately Bladder US. Pt. has suspicious lesion in mouth that may be source of infection if none other identified however will repeat UA and follow up cultures. decreased IVF #Transaminitis LFTs improving today continue to monitor, f/u MRI Elevated TBILI to 4.1 today will monitor. Pt. is s/p CCY and Abd. Us is negative for biliary obstruction GI consult appreciated. Zofran for nausea #DM2 A1c: 7.7 hold Metformin c/w ISS and BGM ACHS #DVT Ppx. Lovenox SQ Visit type - Emergency Visit Emergency Visit: Yes ED Registration Date: 04/03/20 Care time: The patient presented to the Emergency Department on the above date and was hospitalized for further evaluation of their emergent condition. - New Patient This patient is new to me today: Yes Date on this admission: 04/06/20 - Critical Care Critical Care patient: No - Discharge Referral Referred to [facility] Med P.C.: No - Medication Review Med list reviewed for High Risk Meds patients 65 and older: Yes ATTENDING PHYSICIAN STATEMENT I saw and evaluated the patient. I reviewed the resident's note and discussed the case with the resident. I agree with the resident's findings and plan as documented. SUBJECTIVE: OBJECTIVE: ASSESSMENT AND PLAN:
--- NOTE | 2020-04-06 14:36 | PN ---
Teaching Attending Note Name of Resident: Roberto Vega ATTENDING PHYSICIAN STATEMENT I saw and evaluated the patient. I reviewed the resident's note and discussed the case with the resident. I agree with the resident's findings and plan as documented. SUBJECTIVE: pt seen and examined at bedside, denies complains OBJECTIVE: Last Vital Signs Temp Pulse Resp BP Pulse Ox 98.2 F 93 H 18 137/74 99 04/06/20 06:00 04/06/20 06:00 04/06/20 06:00 04/06/20 06:00 04/06/20 06:00 GENERAL: Awake, alert, and fully oriented, in no acute distress. HEAD: Normal with no signs of trauma. EYES: Pupils equal, round and reactive to light, sclera anicteric, conjunctiva clear. LUNGS: Breath sounds equal, clear to auscultation bilaterally. No wheezes, and no crackles. No accessory muscle use. HEART: Regular rate and rhythm, normal S1 and S2 ABDOMEN: Soft, nontender, not distended MUSCULOSKELETAL: Normal range of motion at all joints. No bony deformities or tenderness. No CVA tenderness. UPPER EXTREMITIES: 2+ pulses, warm, well-perfused. No cyanosis. No clubbing. No peripheral edema. LOWER EXTREMITIES: 2+ pulses, warm, well-perfused. No calf tenderness. No peripheral edema. NEUROLOGICAL: Cranial nerves II-XII intact. Normal speech. CBCD WBC 4.7 K/mm3 (4.0-10.0) 04/06/20 06:30 RBC 3.64 M/mm3 (3.60-5.2) 04/06/20 06:30 Hgb 10.1 GM/dL (10.7-15.3) L 04/06/20 06:30 Hct 30.1 % (32.4-45.2) L 04/06/20 06:30 MCV 82.8 fl (80-96) 04/06/20 06:30 MCHC 33.4 g/dl (32.0-36.0) 04/06/20 06:30 RDW 14.4 % (11.6-15.6) 04/06/20 06:30 Plt Count 252 K/MM3 (134-434) 04/06/20 06:30 MPV 8.8 fl (7.5-11.1) 04/06/20 06:30 CMP Sodium 142 mmol/L (136-145) 04/06/20 06:30 Potassium 3.8 mmol/L (3.5-5.1) 04/06/20 06:30 Chloride 108 mmol/L (98-107) H 04/06/20 06:30 Carbon Dioxide 26 mmol/L (21-32) 04/06/20 06:30 Anion Gap 8 MMOL/L (8-16) 04/06/20 06:30 BUN 6.0 mg/dL (7-18) L 04/06/20 06:30 Creatinine 0.7 mg/dL (0.55-1.3) 04/06/20 06:30 Random Glucose 121 mg/dL (74-106) H 04/06/20 06:30 Calcium 7.8 mg/dL (8.5-10.1) L 04/06/20 06:30 Total Bilirubin 1.3 mg/dL (0.2-1) H D 04/06/20 06:30 AST 58 U/L (15-37) H 04/06/20 06:30 ALT 106 U/L (13-61) H 04/06/20 06:30 Alkaline Phosphatase 125 U/L (45-117) H 04/06/20 06:30 Total Protein 6.4 g/dl (6.4-8.2) 04/06/20 06:30 Albumin 2.9 g/dl (3.4-5.0) L 04/06/20 06:30 CARDIAC ENZYMES Creatine Kinase 130 U/L (26-192) 04/03/20 07:50 Troponin I < 0.02 ng/ml (0.00-0.05) 04/03/20 18:15 Active Medications Acetaminophen (Tylenol -) 650 mg PO Q6H PRN PRN Reason: FEVER Last Admin: 04/04/20 14:06 Dose: 650 mg Documented by: Al Hydroxide/Mg Hydroxide (Mylanta Oral Suspension -) 30 ml PO Q6HPO [facility] Last Admin: 04/06/20 11:24 Dose: Not Given Documented by: Docusate Sodium (Colace -) 100 mg PO Q12H PRN PRN Reason: CONSTIPATION Enoxaparin Sodium (Lovenox -) 40 mg SQ DAILY [facility] Last Admin: 04/06/20 11:10 Dose: 40 mg Documented by: Piperacillin Sod/Tazobactam (Sod 4.5 gm/ Dextrose) 100 mls @ 200 mls/hr IVPB Q6H-IV [facility]; Protocol Last Admin: 04/06/20 11:10 Dose: 200 mls/hr Documented by: Sodium Chloride (Normal Saline -) 1,000 mls @ 50 mls/hr IV ASDIR [facility] Insulin Aspart (Novolog Vial Sliding Scale -) 1 vial SQ TIDAC [facility]; Protocol Last Admin: 04/06/20 11:24 Dose: Not Given Documented by: Ondansetron HCl (Zofran Injection) 4 mg IVPUSH Q6H PRN PRN Reason: NAUSEA Pantoprazole Sodium (Protonix Iv) 40 mg IVPUSH DAILY [facility] Last Admin: 04/06/20 11:11 Dose: 40 mg Documented by: ASSESSMENT AND PLAN: 65 y.o. female with PMH of DM, morbid obesity, HTN, HLD, asthma, s/p cholecystectomy presents with c/o fever/n/v since this morning. Febrile and tachycardic in ER with episode of hypotension # sepsis due to UTI (resolved) afebrile, no hypotensive episodes no leukocytosis on zosyn g-ve bacteremia in 1st culture, repeat culture negative so far ID following LFT trending down, hep pannel ordred (only HepA IgG) HTN HLD T2DM s/p cholecystectomy Morbid obesity DVT ppx: Lovenox [place]
[2020-04-06] MEDS: SODIUM CHLORIDE 1,000 ML IV SCH (16:21)
[2020-04-06] MEDS ORDERED: POTASSIUM PHOSPHATE 30 MM in SODIUM CHLORIDE 250 ML IVPB ONE (16:30)
[2020-04-06] MEDS ORDERED: POTASSIUM PHOSPHATE 30 MM in SODIUM CHLORIDE 500 ML IVPB ONE (16:30)
[2020-04-07] MEDS: MAG HYDROX/AL HYDROX/SIMETH 30 ML UNIT-DOSE CUP PO SCH ×5 (01:02→23:33)
[2020-04-07] MEDS ORDERED: PIPERACILLIN/TAZOBACTAM 4.5 GM VIAL IVPB ONE ×3 (02:40→16:35)
[2020-04-07] MEDS ORDERED: DEXTROSE 5%-WATER 100 ML IVPB ONE ×3 (02:40→16:35)
[2020-04-07] MEDS: LACTATED RINGERS SOLUTION 1,000 ML/1,000 ML INFUS.BAG IV SCH (02:41)
[2020-04-07] MEDS: SODIUM CHLORIDE 1,000 ML IV SCH ×2 (02:42→06:13)
[2020-04-07] MEDS: PIPERACILLIN/TAZOB 4.5 GM 4.5 GM in DEXTROSE 5%-WATER 100 ML IVPB SCH ×3 (02:44→17:05)
[2020-04-07] MEDS: INSULIN SLIDING SCALE (NOVOLOG) 1 VIAL SQ SCH ×3 (06:13→17:04)
[2020-04-07 08:37] LABS: BASO % 0.9 % (0-2.0); EOS % 3.2 % (0-4.5); HEMATOCRIT 29.8 % (32.4-45.2); HEMOGLOBIN 9.9 GM/dL (10.7-15.3); LYMPH % 23.1 % (8-40); MCH 27.5 pg (25.7-33.7); MCHC 33.1 g/dl (32.0-36.0); MEAN CELL VOLUME 82.9 fl (80-96); MEAN PLT VOLUME 8.4 fl (7.5-11.1); MONO % 9.4 % (3.8-10.2); NEUT % 63.4 % (42.8-82.8); PLATELET COUNT 279 K/MM3 (134-434); RBC 3.59 M/mm3 (3.60-5.2); RDW 14.4 % (11.6-15.6); WHITE BLOOD COUNT 5.3 K/mm3 (4.0-10.0)
[2020-04-07 08:45] LABS: ALBUMIN 2.8 g/dl (3.4-5.0); BILIRUBIN,TOTAL 1.1 mg/dL (0.2-1); BLOOD UREA NITROGEN 6.7 mg/dL (7-18); CALCIUM 7.9 mg/dL (8.5-10.1); CREATININE 0.7 mg/dL (0.55-1.3); MAGNESIUM 2.1 mg/dL (1.8-2.4); PHOSPHOROUS 3.1 mg/dL (2.5-4.9); TOT PROT 6.4 g/dl (6.4-8.2)
[2020-04-07] MEDS: PANTOPRAZOLE 40 MG TABLET PO SCH (09:27)
[2020-04-07] MEDS: ENOXAPARIN NA (PORCINE) 40 MG/0.4 ML DISP.SYRIN SQ SCH (09:27)
[2020-04-07] MEDS ORDERED: ENALAPRIL MALEATE 2.5 MG TABLET (FP) PO SCH (10:00)
--- NOTE | 2020-04-07 11:03 | PN ---
Progress Note, Physician History of Present Illness: stable no new issues - Current Medication List Current Medications: Active Medications Acetaminophen (Tylenol -) 650 mg PO Q6H PRN PRN Reason: FEVER Last Admin: 04/04/20 14:06 Dose: 650 mg Documented by: Al Hydroxide/Mg Hydroxide (Mylanta Oral Suspension -) 30 ml PO Q6HPO [facility] Last Admin: 04/07/20 06:13 Dose: Not Given Documented by: Docusate Sodium (Colace -) 100 mg PO Q12H PRN PRN Reason: CONSTIPATION Enalapril Maleate (Vasotec -) 2.5 mg PO DAILY [facility] Enoxaparin Sodium (Lovenox -) 40 mg SQ DAILY [facility] Last Admin: 04/07/20 09:27 Dose: 40 mg Documented by: Hydrochlorothiazide (Hctz -) 12.5 mg PO DAILY [facility] Piperacillin Sod/Tazobactam (Sod 4.5 gm/ Dextrose) 100 mls @ 200 mls/hr IVPB Q6H-IV [facility]; Protocol Last Admin: 04/07/20 09:26 Dose: 200 mls/hr Documented by: Sodium Chloride (Normal Saline -) 1,000 mls @ 50 mls/hr IV ASDIR [facility] Last Admin: 04/07/20 06:13 Dose: 50 mls/hr Documented by: Insulin Aspart (Novolog Vial Sliding Scale -) 1 vial SQ TIDAC [facility]; Protocol Last Admin: 04/07/20 06:13 Dose: Not Given Documented by: Ondansetron HCl (Zofran Injection) 4 mg IVPUSH Q6H PRN PRN Reason: NAUSEA Pantoprazole Sodium (Protonix -) 40 mg PO DAILY [facility] Last Admin: 04/07/20 09:27 Dose: 40 mg Documented by: - Objective Vital Signs: Vital Signs Temperature 98 F 04/07/20 09:16 Pulse Rate 71 04/07/20 09:16 Respiratory Rate 18 04/07/20 09:16 Blood Pressure 160/91 04/07/20 09:16 O2 Sat by Pulse Oximetry (%) 98 04/07/20 09:16 Constitutional: Yes: No Distress, Calm Cardiovascular: Yes: S1, S2 Respiratory: Yes: Regular, CTA Bilaterally Gastrointestinal: Yes: Normal Bowel Sounds, Soft Musculoskeletal: Yes: WNL Extremities: Yes: WNL Neurological: Yes: Alert Psychiatric: Yes: Alert Labs: CBC, BMP 04/07/20 07:40 04/07/20 07:40 INR, PTT INR 1.03 (0.83-1.09) 04/03/20 07:50 Assessment/Plan Problem List - Problems (1) Severe sepsis Code(s): A41.9 - SEPSIS, UNSPECIFIED ORGANISM; R65.20 - SEVERE SEPSIS WITHOUT SEPTIC SHOCK (2) UTI (urinary tract infection) Code(s): N39.0 - URINARY TRACT INFECTION, SITE NOT SPECIFIED Qualifiers: Urinary tract infection type: site unspecified Hematuria presence: with hematuria Qualified Code(s): N39.0 - Urinary tract infection, site not specified; R31.9 - Hematuria, unspecified (3) Hypertension Code(s): I10 - ESSENTIAL (PRIMARY) HYPERTENSION (4) Obesity (BMI 30-39.9) Code(s): E66.9 - OBESITY, UNSPECIFIED (5) Transaminitis Code(s): R74.0 - NONSPEC ELEV OF LEVELS OF TRANSAMNS & LACTIC ACID DEHYDRGNSE (6) Type 2 diabetes mellitus Code(s): E11.9 - TYPE 2 DIABETES MELLITUS WITHOUT COMPLICATIONS 7 gm negative bacteremia Assessment/Plan 65 y.o. female with PMH of DM, morbid obesity, HTN, HLD, asthma, s/p cholecystectomy presents with c/o fever/n/v since this morning. Febrile and tachycardic in ER with episode of hypotension Severe Sepsis Fever Transaminitis w/o abd pain Nausea/Vomiting UTI gm negative bacteremia continue abx await for repeat blood cx will d/w the team
--- NOTE | 2020-04-07 11:20 | PN ---
Teaching Attending Note Name of Resident: Roberto Vega ATTENDING PHYSICIAN STATEMENT I saw and evaluated the patient. I reviewed the resident's note and discussed the case with the resident. I agree with the resident's findings and plan as documented. SUBJECTIVE: pt seen and examined OBJECTIVE: Last Vital Signs Temp Pulse Resp BP Pulse Ox 98 F 71 18 160/91 98 04/07/20 09:16 04/07/20 09:16 04/07/20 09:16 04/07/20 09:16 04/07/20 09:16 GENERAL: Awake, alert, and fully oriented, in no acute distress. HEAD: Normal with no signs of trauma. EYES: Pupils equal, round and reactive to light, sclera anicteric, conjunctiva clear. LUNGS: Breath sounds equal, clear to auscultation bilaterally. No wheezes, and no crackles. No accessory muscle use. HEART: Regular rate and rhythm, normal S1 and S2 ABDOMEN: Soft, nontender, not distended MUSCULOSKELETAL: Normal range of motion at all joints. No bony deformities or tenderness. No CVA tenderness. UPPER EXTREMITIES: 2+ pulses, warm, well-perfused. No cyanosis. No clubbing. No peripheral edema. LOWER EXTREMITIES: 2+ pulses, warm, well-perfused. No calf tenderness. No peripheral edema. NEUROLOGICAL: Cranial nerves II-XII intact. Normal speech. CBCD WBC 5.3 K/mm3 (4.0-10.0) 04/07/20 07:40 RBC 3.59 M/mm3 (3.60-5.2) L 04/07/20 07:40 Hgb 9.9 GM/dL (10.7-15.3) L 04/07/20 07:40 Hct 29.8 % (32.4-45.2) L 04/07/20 07:40 MCV 82.9 fl (80-96) 04/07/20 07:40 MCHC 33.1 g/dl (32.0-36.0) 04/07/20 07:40 RDW 14.4 % (11.6-15.6) 04/07/20 07:40 Plt Count 279 K/MM3 (134-434) 04/07/20 07:40 MPV 8.4 fl (7.5-11.1) 04/07/20 07:40 CMP Sodium 141 mmol/L (136-145) 04/07/20 07:40 Potassium 4.0 mmol/L (3.5-5.1) 04/07/20 07:40 Chloride 110 mmol/L (98-107) H 04/07/20 07:40 Carbon Dioxide 27 mmol/L (21-32) 04/07/20 07:40 Anion Gap 4 MMOL/L (8-16) L 04/07/20 07:40 BUN 6.7 mg/dL (7-18) L 04/07/20 07:40 Creatinine 0.7 mg/dL (0.55-1.3) 04/07/20 07:40 Random Glucose 118 mg/dL (74-106) H 04/07/20 07:40 Calcium 7.9 mg/dL (8.5-10.1) L 04/07/20 07:40 Total Bilirubin 1.1 mg/dL (0.2-1) H 04/07/20 07:40 AST 47 U/L (15-37) H 04/07/20 07:40 ALT 89 U/L (13-61) H 04/07/20 07:40 Alkaline Phosphatase 134 U/L (45-117) H 04/07/20 07:40 Total Protein 6.4 g/dl (6.4-8.2) 04/07/20 07:40 Albumin 2.8 g/dl (3.4-5.0) L 04/07/20 07:40 CARDIAC ENZYMES Creatine Kinase 130 U/L (26-192) 04/03/20 07:50 Troponin I < 0.02 ng/ml (0.00-0.05) 04/03/20 18:15 Active Medications Acetaminophen (Tylenol -) 650 mg PO Q6H PRN PRN Reason: FEVER Last Admin: 04/04/20 14:06 Dose: 650 mg Documented by: Al Hydroxide/Mg Hydroxide (Mylanta Oral Suspension -) 30 ml PO Q6HPO [facility] Last Admin: 04/07/20 06:13 Dose: Not Given Documented by: Docusate Sodium (Colace -) 100 mg PO Q12H PRN PRN Reason: CONSTIPATION Enalapril Maleate (Vasotec -) 2.5 mg PO DAILY [facility] Enoxaparin Sodium (Lovenox -) 40 mg SQ DAILY [facility] Last Admin: 04/07/20 09:27 Dose: 40 mg Documented by: Hydrochlorothiazide (Hctz -) 12.5 mg PO DAILY [facility] Piperacillin Sod/Tazobactam (Sod 4.5 gm/ Dextrose) 100 mls @ 200 mls/hr IVPB Q6H-IV [facility]; Protocol Last Admin: 04/07/20 09:26 Dose: 200 mls/hr Documented by: Sodium Chloride (Normal Saline -) 1,000 mls @ 50 mls/hr IV [facility] Last Admin: 04/07/20 06:13 Dose: 50 mls/hr Documented by: Insulin Aspart (Novolog Vial Sliding Scale -) 1 vial SQ TIDAC [facility]; Protocol Last Admin: 04/07/20 06:13 Dose: Not Given Documented by: Ondansetron HCl (Zofran Injection) 4 mg IVPUSH Q6H PRN PRN Reason: NAUSEA Pantoprazole Sodium (Protonix -) 40 mg PO DAILY [facility] Last Admin: 04/07/20 09:27 Dose: 40 mg Documented by: ASSESSMENT AND PLAN: 65 y.o. female with PMH of DM, morbid obesity, HTN, HLD, asthma, s/p cholecystectomy presents with c/o fever/n/v since this morning. Febrile and tachycardic in ER with episode of hypotension # sepsis due to UTI (resolved) afebrile, no hypotensive episodes no leukocytosis on zosyn g-ve bacteremia in 1st culture, repeat culture negative to date ID following refused MRCP, will need outpatient MRCP LFT trending down, hep pannel ordred (only HepA IgG) HTN HLD T2DM s/p cholecystectomy Morbid obesity DVT ppx: Lovenox SC
[2020-04-07] MEDS ORDERED: PT OWN MED DRAWER 7, Y5N ONE (12:25)
[2020-04-07] MEDS: HYDROCHLOROTHIAZIDE 12.5 MG CAPSULE (FP) PO SCH (12:26)
--- NOTE | 2020-04-07 12:39 | PN ---
Physical Exam: SUBJECTIVE: Patient seen and examined. Pt. states she is claustrophobic and refused MRI even when offered medications to help with anxiety. No acute events overnight. OBJECTIVE: Vital Signs Period Temp Pulse Resp BP Sys/Mckeon Pulse Ox Last 24 Hr 97.5 F-98.8 F 64-82 18-20 147-164/74-96 95-100 GENERAL: The patient is awake, alert, and fully oriented, in no acute distress. HEAD: Normal with no signs of trauma. EYES: Sclera anicteric, conjunctiva clear. ENT: Ears normal, nares patent, oropharynx with non-tender black lesion on cheek, moist mucous membranes. NECK: Trachea midline, full range of motion, supple, No LAD LUNGS: Breath sounds equal, clear to auscultation bilaterally, no wheezes, no crackles, no accessory muscle use. HEART: Regular rate and rhythm, S1, S2 without murmur ABDOMEN: Soft, nontender, nondistended, normoactive bowel sounds, no guarding, no rebound EXTREMITIES: 2+ dorsal pedal pulses, warm, no calf tenderness, well-perfused, no edema. NEUROLOGICAL: Normal speech, gait not observed. PSYCH: Normal mood, normal affect. SKIN: Warm, dry, normal turgor Laboratory Results - last 24 hr 04/06/20 04/07/20 04/07/20 17:44 06:09 07:40 WBC 5.3 RBC 3.59 L Hgb 9.9 L Hct 29.8 L MCV 82.9 MCH 27.5 MCHC 33.1 RDW 14.4 Plt Count 279 MPV 8.4 Absolute Neuts (auto) 3.4 Neutrophils % 63.4 Lymphocytes % 23.1 D Monocytes % 9.4 Eosinophils % 3.2 Basophils % 0.9 Nucleated RBC % 0 Sodium Potassium Chloride Carbon Dioxide Anion Gap BUN Creatinine Est GFR (CKD-EPI)AfAm Est GFR (CKD-EPI)NonAf POC Glucometer 131 121 Random Glucose Calcium Phosphorus Magnesium Total Bilirubin AST ALT Alkaline Phosphatase Total Protein Albumin 04/07/20 04/07/20 07:40 12:31 WBC RBC Hgb Hct MCV MCH MCHC RDW Plt Count MPV Absolute Neuts (auto) Neutrophils % Lymphocytes % Monocytes % Eosinophils % Basophils % Nucleated RBC % Sodium 141 Potassium 4.0 Chloride 110 H Carbon Dioxide 27 Anion Gap 4 L BUN 6.7 L Creatinine 0.7 Est GFR (CKD-EPI)AfAm 105.38 Est GFR (CKD-EPI)NonAf 90.92 POC Glucometer 140 Random Glucose 118 H Calcium 7.9 L Phosphorus 3.1 Magnesium 2.1 Total Bilirubin 1.1 H AST 47 H ALT 89 H Alkaline Phosphatase 134 H Total Protein 6.4 Albumin 2.8 L Active Medications Generic Name Dose Route Start Last Admin Trade Name Freq PRN Reason Stop Dose Admin Acetaminophen 650 mg 04/03/20 15:34 04/04/20 14:06 Tylenol - PO 650 mg Q6H PRN Administration FEVER Al Hydroxide/Mg Hydroxide 30 ml 04/05/20 00:00 04/07/20 12:25 Mylanta Oral Suspension - PO 30 ml Q6HPO [facility] Administration Docusate Sodium 100 mg 04/04/20 18:09 Colace - PO Q12H PRN CONSTIPATION Enalapril Maleate 2.5 mg 04/07/20 10:00 04/07/20 12:26 Vasotec - PO 2.5 mg DAILY [facility] Administration Enoxaparin Sodium 40 mg 04/03/20 12:00 04/07/20 09:27 Lovenox - SQ 40 mg DAILY [facility] Administration Hydrochlorothiazide 12.5 mg 04/07/20 10:00 04/07/20 12:26 Hctz - PO 12.5 mg DAILY [facility] Administration Piperacillin Sod/Tazobactam 100 mls @ 200 mls/hr 04/03/20 15:00 04/07/20 09:26 Sod 4.5 gm/ Dextrose IVPB 200 mls/hr Q6H-IV [facility] Administration Protocol Sodium Chloride 1,000 mls @ 50 mls/hr 04/06/20 14:23 04/07/20 06:13 Normal Saline - IV 50 mls/hr ASDIR [facility] Administration Insulin Aspart 1 vial 04/03/20 16:30 04/07/20 12:26 Novolog Vial Sliding Scale - SQ Not Given TIDAC [facility] Protocol Ondansetron HCl 4 mg 04/03/20 11:58 Zofran Injection IVPUSH Q6H PRN NAUSEA Pantoprazole Sodium 40 mg 04/07/20 10:00 04/07/20 09:27 Protonix - PO 40 mg DAILY [facility] Administration ASSESSMENT/PLAN: Pt. is a 65 y.o. Portuguese-speaking F w/ PMHx. of HTN, HLD, Morbid Obesity, Asthma and DM presents with nausea, vomiting and chills. Pt. found to be bacteremic. #Severe Sepsis of unknown source. Pt. has 2 positive sets of blood cultures growing Gram Neg. Bacilli, Rpt. on 16 negative to date. Third set of blood cultures ordered. If the 2nd and 3rd sets of cultures are negative would d/c on PO antibiotics to complete 2 weeks. c/w Zosyn; ID Consult appreciated UA positive, however has no symptoms and UCx. was contaminated. Pt. voiding appropriately Bladder US. Pt. has suspicious lesion in mouth that may be source of infection if none other identified however will repeat UA and follow up cultures. decreased IVF #Transaminitis LFTs improving today Pt. refused MRI Bilirubin improved today, will continue to trend and suggest outpatient MRI Pt. is s/p CCY and Abd. Us is negative for biliary obstruction GI consult appreciated. Zofran for nausea #DM2 A1c: 7.7 hold Metformin c/w ISS and BGM ACHS #DVT Ppx. Lovenox SQ Visit type - Emergency Visit Emergency Visit: Yes ED Registration Date: 04/03/20 Care time: The patient presented to the Emergency Department on the above date and was hospitalized for further evaluation of their emergent condition. - New Patient This patient is new to me today: No - Critical Care Critical Care patient: No - Discharge Referral Referred to [facility] Med P.[facility] No - Medication Review Med list reviewed for High Risk Meds patients 65 and older: Yes ATTENDING PHYSICIAN STATEMENT I saw and evaluated the patient. I reviewed the resident's note and discussed the case with the resident. I agree with the resident's findings and plan as documented. SUBJECTIVE: OBJECTIVE: ASSESSMENT AND PLAN:
[2020-04-08] MEDS: MAG HYDROX/AL HYDROX/SIMETH 30 ML UNIT-DOSE CUP PO SCH ×3 (06:02→17:13)
[2020-04-08] MEDS: INSULIN SLIDING SCALE (NOVOLOG) 1 VIAL SQ SCH ×3 (06:03→16:55)
[2020-04-08 06:59] LABS: BASO % 1.1 % (0-2.0); EOS % 3.6 % (0-4.5); HEMATOCRIT 29.7 % (32.4-45.2); HEMOGLOBIN 9.8 GM/dL (10.7-15.3); LYMPH % 27.5 % (8-40); MCH 27.3 pg (25.7-33.7); MCHC 32.9 g/dl (32.0-36.0); MEAN CELL VOLUME 82.9 fl (80-96); MEAN PLT VOLUME 8.2 fl (7.5-11.1); MONO % 11.2 % (3.8-10.2); NEUT % 56.6 % (42.8-82.8); PLATELET COUNT 296 K/MM3 (134-434); RBC 3.59 M/mm3 (3.60-5.2); RDW 14.5 % (11.6-15.6); WHITE BLOOD COUNT 5.8 K/mm3 (4.0-10.0)
[2020-04-08 07:24] LABS: ALBUMIN 2.9 g/dl (3.4-5.0); BILIRUBIN,TOTAL 0.8 mg/dL (0.2-1); CALCIUM 8.5 mg/dL (8.5-10.1); CREATININE 0.6 mg/dL (0.55-1.3); POTASSIUM 3.7 mmol/L (3.5-5.1); TOT PROT 6.5 g/dl (6.4-8.2)
[2020-04-08] MEDS ORDERED: PT OWN MED DRAWER 7, Y5N ONE (09:36)
[2020-04-08] MEDS: PANTOPRAZOLE 40 MG TABLET PO SCH (09:40)
[2020-04-08] MEDS: ENOXAPARIN NA (PORCINE) 40 MG/0.4 ML DISP.SYRIN SQ SCH (09:40)
[2020-04-08] MEDS: HYDROCHLOROTHIAZIDE 12.5 MG CAPSULE (FP) PO SCH (09:40)
[2020-04-08] MEDS ORDERED: ENALAPRIL MALEATE 5 MG TABLET (FP) PO SCH (10:00)
[2020-04-08 10:40] LABS: ANISOCYTOSIS 1+; MACROCYTOSIS 0; PLATELET ESTIMATE NORMAL
--- NOTE | 2020-04-08 10:42 | PN ---
Progress Note, Physician History of Present Illness: stable no new issues - Current Medication List Current Medications: Active Medications Acetaminophen (Tylenol -) 650 mg PO Q6H PRN PRN Reason: FEVER Last Admin: 04/04/20 14:06 Dose: 650 mg Documented by: Al Hydroxide/Mg Hydroxide (Mylanta Oral Suspension -) 30 ml PO Q6HPO [facility] Last Admin: 04/08/20 06:02 Dose: Not Given Documented by: Docusate Sodium (Colace -) 100 mg PO Q12H PRN PRN Reason: CONSTIPATION Enalapril Maleate (Vasotec -) 5 mg PO DAILY [facility] Enoxaparin Sodium (Lovenox -) 40 mg SQ DAILY [facility] Last Admin: 04/08/20 09:40 Dose: 40 mg Documented by: Hydrochlorothiazide (Hctz -) 12.5 mg PO DAILY [facility] Last Admin: 04/08/20 09:40 Dose: 12.5 mg Documented by: Insulin Aspart (Novolog Vial Sliding Scale -) 1 vial SQ TIDAC [facility]; Protocol Last Admin: 04/08/20 06:03 Dose: Not Given Documented by: Ondansetron HCl (Zofran Injection) 4 mg IVPUSH Q6H PRN PRN Reason: NAUSEA Pantoprazole Sodium (Protonix -) 40 mg PO DAILY [facility] Last Admin: 04/08/20 09:40 Dose: 40 mg Documented by: - Objective Vital Signs: Vital Signs Temperature 98.4 F 04/08/20 10:00 Pulse Rate 80 04/08/20 10:00 Respiratory Rate 20 04/08/20 10:00 Blood Pressure 156/87 04/08/20 10:00 O2 Sat by Pulse Oximetry (%) 96 04/08/20 10:00 Constitutional: Yes: No Distress, Calm Cardiovascular: Yes: S1, S2 Respiratory: Yes: Regular, CTA Bilaterally Gastrointestinal: Yes: Normal Bowel Sounds, Soft Musculoskeletal: Yes: WNL Extremities: Yes: WNL Neurological: Yes: Alert, Oriented Psychiatric: Yes: Alert, Oriented Labs: CBC, BMP 04/08/20 05:45 04/08/20 05:45 INR, PTT INR 1.03 (0.83-1.09) 04/03/20 07:50 Assessment/Plan Problem List - Problems (1) Severe sepsis Code(s): A41.9 - SEPSIS, UNSPECIFIED ORGANISM; R65.20 - SEVERE SEPSIS WITHOUT SEPTIC SHOCK (2) UTI (urinary tract infection) Code(s): N39.0 - URINARY TRACT INFECTION, SITE NOT SPECIFIED Qualifiers: Urinary tract infection type: site unspecified Hematuria presence: with hematuria Qualified Code(s): N39.0 - Urinary tract infection, site not specified; R31.9 - Hematuria, unspecified (3) Hypertension Code(s): I10 - ESSENTIAL (PRIMARY) HYPERTENSION (4) Obesity (BMI 30-39.9) Code(s): E66.9 - OBESITY, UNSPECIFIED (5) Transaminitis Code(s): R74.0 - NONSPEC ELEV OF LEVELS OF TRANSAMNS & LACTIC ACID DEHYDRGNSE (6) Type 2 diabetes mellitus Code(s): E11.9 - TYPE 2 DIABETES MELLITUS WITHOUT COMPLICATIONS 7 gm negative bacteremia Assessment/Plan 65 y.o. female with PMH of DM, morbid obesity, HTN, HLD, asthma, s/p cholecystectomy presents with c/o fever/n/v since this morning. Febrile and tachycardic in ER with episode of hypotension Severe Sepsis Fever Transaminitis w/o abd pain Nausea/Vomiting UTI gm negative bacteremia repeat blood cx negative abx can be stopped from tomorrow
--- NOTE | 2020-04-08 13:11 | PN ---
Physical Exam: SUBJECTIVE: Patient seen and examined OBJECTIVE: Vital Signs Period Temp Pulse Resp BP Sys/Mckeon Pulse Ox Last 24 Hr 98.4 F-98.9 F 68-80 18-20 153-156/68-87 94-99 GENERAL: Awake, alert, and fully oriented, in no acute distress. HEAD: Normal with no signs of trauma. EYES: Pupils equal, round and reactive to light, sclera anicteric, conjunctiva clear. LUNGS: Breath sounds equal, clear to auscultation bilaterally. No wheezes, and no crackles. No accessory muscle use. HEART: Regular rate and rhythm, normal S1 and S2 ABDOMEN: Soft, nontender, not distended MUSCULOSKELETAL: Normal range of motion at all joints. No bony deformities or tenderness. No CVA tenderness. UPPER EXTREMITIES: 2+ pulses, warm, well-perfused. No cyanosis. No clubbing. No peripheral edema. LOWER EXTREMITIES: 2+ pulses, warm, well-perfused. No calf tenderness. No peripheral edema. NEUROLOGICAL: Cranial nerves II-XII intact. Normal speech. Laboratory Results - last 24 hr 04/08/20 04/08/20 04/08/20 05:45 05:45 06:00 WBC 5.8 RBC 3.59 L Hgb 9.8 L Hct 29.7 L MCV 82.9 MCH 27.3 MCHC 32.9 RDW 14.5 Plt Count 296 MPV 8.2 Absolute Neuts (auto) 3.3 Neutrophils % 56.6 Neutrophils % (Manual) 59.8 Band Neutrophils % 2.1 Lymphocytes % 27.5 Lymphocytes % (Manual) 26.8 D Monocytes % 11.2 H Monocytes % (Manual) 8 D Eosinophils % 3.6 Eosinophils % (Manual) 2.1 D Basophils % 1.1 Basophils % (Manual) 0.0 Myelocytes % (Man) 0 Promyelocytes % (Man) 0 Blast Cells % (Manual) 0 Nucleated RBC % 2 H Metamyelocytes 0 Hypochromia 0 Platelet Estimate Normal Polychromasia 0 Poikilocytosis 0 Anisocytosis 1+ Microcytosis 1+ Macrocytosis 0 Sodium 140 Potassium 3.7 Chloride 106 Carbon Dioxide 28 Anion Gap 6 L BUN 6.0 L Creatinine 0.6 Est GFR (CKD-EPI)AfAm 110.86 Est GFR (CKD-EPI)NonAf 95.65 POC Glucometer 116 Random Glucose 118 H Calcium 8.5 Magnesium 2.0 Total Bilirubin 0.8 AST 43 H ALT 80 H Alkaline Phosphatase 127 H Total Protein 6.5 Albumin 2.9 L 04/08/20 11:27 WBC RBC Hgb Hct MCV MCH MCHC RDW Plt Count MPV Absolute Neuts (auto) Neutrophils % Neutrophils % (Manual) Band Neutrophils % Lymphocytes % Lymphocytes % (Manual) Monocytes % Monocytes % (Manual) Eosinophils % Eosinophils % (Manual) Basophils % Basophils % (Manual) Myelocytes % (Man) Promyelocytes % (Man) Blast Cells % (Manual) Nucleated RBC % Metamyelocytes Hypochromia Platelet Estimate Polychromasia Poikilocytosis Anisocytosis Microcytosis Macrocytosis Sodium Potassium Chloride Carbon Dioxide Anion Gap BUN Creatinine Est GFR (CKD-EPI)AfAm Est GFR (CKD-EPI)NonAf POC Glucometer 128 Random Glucose Calcium Magnesium Total Bilirubin AST ALT Alkaline Phosphatase Total Protein Albumin Active Medications Generic Name Dose Route Start Last Admin Trade Name Freq PRN Reason Stop Dose Admin Acetaminophen 650 mg 04/03/20 15:34 04/04/20 14:06 Tylenol - PO 650 mg Q6H PRN Administration FEVER Al Hydroxide/Mg Hydroxide 30 ml 04/05/20 00:00 04/08/20 12:33 Mylanta Oral Suspension - PO Not Given Q6HPO BELL[facility] Docusate Sodium 100 mg 04/04/20 18:09 Colace - PO Q12H PRN CONSTIPATION Enalapril Maleate 5 mg 04/08/20 10:00 04/08/20 10:40 Vasotec - PO 5 mg DAILY [facility] Administration Enoxaparin Sodium 40 mg 04/03/20 12:00 04/08/20 09:40 Lovenox - SQ 40 mg DAILY [facility] Administration Hydrochlorothiazide 12.5 mg 04/07/20 10:00 04/08/20 09:40 Hctz - PO 12.5 mg DAILY [facility] Administration Insulin Aspart 1 vial 04/03/20 16:30 04/08/20 11:30 Novolog Vial Sliding Scale - SQ Not Given TIDAC [facility] Protocol Ondansetron HCl 4 mg 04/03/20 11:58 Zofran Injection IVPUSH Q6H PRN NAUSEA Pantoprazole Sodium 40 mg 04/07/20 10:00 04/08/20 09:40 Protonix - PO 40 mg DAILY BELLA Administration ASSESSMENT/PLAN: 65 y.o. female with PMH of DM, morbid obesity, HTN, HLD, asthma, s/p cholecystectomy presents with c/o fever/n/v since this morning. Febrile and tachycardic in ER with episode of hypotension # sepsis due to unknown cause, possibly biliary afebrile, no hypotensive episodes no leukocytosis on zosyn to be stopped tomorrow g-ve bacteremia in 1st culture, repeat culture negative to date ID following refused MRCP, will need outpatient MRCP LFT trending down HTN HLD T2DM s/p cholecystectomy Morbid obesity DVT ppx: Lovenox SC Visit type - Emergency Visit Emergency Visit: Yes ED Registration Date: 04/03/20 Care time: The patient presented to the Emergency Department on the above date and was hospitalized for further evaluation of their emergent condition. - New Patient This patient is new to me today: No - Critical Care Critical Care patient: No - Discharge Referral Referred to [facility] No - Medication Review Med list reviewed for High Risk Meds patients 65 and older: Yes (reviewed)
[2020-04-08] MEDS ORDERED: HYDROCHLOROTHIAZIDE 12.5 MG CAPSULE (FP) PO ONE (15:37)
--- NOTE | 2020-04-08 17:17 | PN.GI ---
GI Progress Note Subjective: denies abdominal pain nausea and vomiting - Objective Vital Signs: Vital Signs Temperature 98.9 F 04/08/20 15:20 Pulse Rate 66 04/08/20 15:20 Respiratory Rate 20 04/08/20 15:20 Blood Pressure 164/79 04/08/20 15:20 O2 Sat by Pulse Oximetry (%) 99 04/08/20 15:20 Constitutional: Obese Eyes: Yes: Conjunctiva Clear HENT: Yes: Atraumatic Neck: Yes: Supple Cardiovascular: Yes: Regular Rate and Rhythm Respiratory: Yes: CTA Bilaterally ...Palpate: Yes: Soft. No: Firm/Rigid, Guarding, Hepatomegaly, Mass, Pulsatile Mass, Splenomegaly, Tenderness Labs: CBC, BMP 04/08/20 05:45 04/08/20 05:45 INR, PTT INR 1.03 (0.83-1.09) 04/03/20 07:50 Problem List - Problems (1) Sepsis Assessment/Plan: resolving Code(s): A41.9 - SEPSIS, UNSPECIFIED ORGANISM Qualifiers: Sepsis type: sepsis due to unspecified organism Sepsis acute organ dysfunction status: unspecified Qualified Code(s): A41.9 - Sepsis, unspecified organism (2) Elevated liver enzymes Assessment/Plan: possibly passed a CBD stone LFTS downward trend R> open MRI made aware to follow up as an outpatient Code(s): R74.8 - ABNORMAL LEVELS OF OTHER SERUM ENZYMES
[2020-04-09] MEDS: MAG HYDROX/AL HYDROX/SIMETH 30 ML UNIT-DOSE CUP PO SCH ×3 (00:45→11:56)
[2020-04-09] MEDS: INSULIN SLIDING SCALE (NOVOLOG) 1 VIAL SQ SCH ×2 (06:09→11:44)
[2020-04-09] MEDS: PANTOPRAZOLE 40 MG TABLET PO SCH (09:03)
[2020-04-09] MEDS: ENOXAPARIN NA (PORCINE) 40 MG/0.4 ML DISP.SYRIN SQ SCH (09:03)
[2020-04-09] MEDS ORDERED: HYDROCHLOROTHIAZIDE 25 MG TABLET (FP) PO SCH (10:00)
[2020-04-09] MEDS ORDERED: ENALAPRIL MALEATE 10 MG TABLET (FP) PO SCH (10:00)
[2020-04-09 10:34] VITALS: BP 165/78; PULSE 82; TEMP 98.5
--- NOTE | 2020-04-09 11:48 | PN ---
Teaching Attending Note Name of Resident: Jasmin Dacosta ATTENDING PHYSICIAN STATEMENT I saw and evaluated the patient. I reviewed the resident's note and discussed the case with the resident. I agree with the resident's findings and plan as documented. SUBJECTIVE: pt seen and examined OBJECTIVE: CBCD Last Vital Signs Temp Pulse Resp BP Pulse Ox 98.5 F 82 18 165/78 99 04/09/20 10:00 04/09/20 10:00 04/09/20 10:00 04/09/20 10:00 04/09/20 10:00 GENERAL: Awake, alert, and fully oriented, in no acute distress. HEAD: Normal with no signs of trauma. EYES: Pupils equal, round and reactive to light, sclera anicteric, conjunctiva clear. LUNGS: Breath sounds equal, clear to auscultation bilaterally. No wheezes, and no crackles. No accessory muscle use. HEART: Regular rate and rhythm, normal S1 and S2 ABDOMEN: Soft, nontender, not distended MUSCULOSKELETAL: Normal range of motion at all joints. No bony deformities or tenderness. No CVA tenderness. UPPER EXTREMITIES: 2+ pulses, warm, well-perfused. No cyanosis. No clubbing. No peripheral edema. LOWER EXTREMITIES: 2+ pulses, warm, well-perfused. No calf tenderness. No peripheral edema. NEUROLOGICAL: Cranial nerves II-XII intact. Normal speech. WBC 5.8 K/mm3 (4.0-10.0) 04/08/20 05:45 RBC 3.59 M/mm3 (3.60-5.2) L 04/08/20 05:45 Hgb 9.8 GM/dL (10.7-15.3) L 04/08/20 05:45 Hct 29.7 % (32.4-45.2) L 04/08/20 05:45 MCV 82.9 fl (80-96) 04/08/20 05:45 MCHC 32.9 g/dl (32.0-36.0) 04/08/20 05:45 RDW 14.5 % (11.6-15.6) 04/08/20 05:45 Plt Count 296 K/MM3 (134-434) 04/08/20 05:45 MPV 8.2 fl (7.5-11.1) 04/08/20 05:45 CMP Sodium 140 mmol/L (136-145) 04/08/20 05:45 Potassium 3.7 mmol/L (3.5-5.1) 04/08/20 05:45 Chloride 106 mmol/L (98-107) 04/08/20 05:45 Carbon Dioxide 28 mmol/L (21-32) 04/08/20 05:45 Anion Gap 6 MMOL/L (8-16) L 04/08/20 05:45 BUN 6.0 mg/dL (7-18) L 04/08/20 05:45 Creatinine 0.6 mg/dL (0.55-1.3) 04/08/20 05:45 Calcium 8.5 mg/dL (8.5-10.1) 04/08/20 05:45 Total Bilirubin 0.8 mg/dL (0.2-1) 04/08/20 05:45 AST 43 U/L (15-37) H 04/08/20 05:45 ALT 80 U/L (13-61) H 04/08/20 05:45 Alkaline Phosphatase 127 U/L (45-117) H 04/08/20 05:45 Total Protein 6.5 g/dl (6.4-8.2) 04/08/20 05:45 Albumin 2.9 g/dl (3.4-5.0) L 04/08/20 05:45 Active Medications Acetaminophen (Tylenol -) 650 mg PO Q6H PRN PRN Reason: FEVER Last Admin: 04/04/20 14:06 Dose: 650 mg Documented by: Al Hydroxide/Mg Hydroxide (Mylanta Oral Suspension -) 30 ml PO Q6HPO [facility] Last Admin: 04/09/20 05:38 Dose: Not Given Documented by: Docusate Sodium (Colace -) 100 mg PO Q12H PRN PRN Reason: CONSTIPATION Enalapril Maleate (Vasotec -) 20 mg PO DAILY [facility] Last Admin: 04/09/20 09:03 Dose: 20 mg Documented by: Enoxaparin Sodium (Lovenox -) 40 mg SQ DAILY [facility] Last Admin: 04/09/20 09:03 Dose: 40 mg Documented by: Hydrochlorothiazide (Hctz -) 25 mg PO DAILY [facility] Last Admin: 04/09/20 09:03 Dose: 25 mg Documented by: Insulin Aspart (Novolog Vial Sliding Scale -) 1 vial SQ TIDAC [facility]; Protocol Last Admin: 04/09/20 11:44 Dose: Not Given Documented by: Ondansetron HCl (Zofran Injection) 4 mg IVPUSH Q6H PRN PRN Reason: NAUSEA Pantoprazole Sodium (Protonix -) 40 mg PO DAILY [facility] Last Admin: 04/09/20 09:03 Dose: 40 mg Documented by: ASSESSMENT AND PLAN: 65 y.o. female with PMH of DM, morbid obesity, HTN, HLD, asthma, s/p cholecystectomy presents with c/o fever/n/v since this morning. Febrile and tachycardic in ER with episode of hypotension # sepsis due to unknown cause, possibly biliary afebrile, no hypotensive episodes no leukocytosis repeat culture negative to date, D/C Abx ID following outpatient MRCP and GI follow up HTN HLD T2DM s/p cholecystectomy Morbid obesity DVT ppx: Lovenox SC
--- NOTE | 2020-04-09 11:56 | PN ---
Progress Note, Physician History of Present Illness: stable no new issues - Current Medication List Current Medications: Active Medications Acetaminophen (Tylenol -) 650 mg PO Q6H PRN PRN Reason: FEVER Last Admin: 04/04/20 14:06 Dose: 650 mg Documented by: Al Hydroxide/Mg Hydroxide (Mylanta Oral Suspension -) 30 ml PO Q6HPO [facility] Last Admin: 04/09/20 05:38 Dose: Not Given Documented by: Docusate Sodium (Colace -) 100 mg PO Q12H PRN PRN Reason: CONSTIPATION Enalapril Maleate (Vasotec -) 20 mg PO DAILY [facility] Last Admin: 04/09/20 09:03 Dose: 20 mg Documented by: Enoxaparin Sodium (Lovenox -) 40 mg SQ DAILY [facility] Last Admin: 04/09/20 09:03 Dose: 40 mg Documented by: Hydrochlorothiazide (Hctz -) 25 mg PO DAILY [facility] Last Admin: 04/09/20 09:03 Dose: 25 mg Documented by: Insulin Aspart (Novolog Vial Sliding Scale -) 1 vial SQ TIDAC [facility]; Protocol Last Admin: 04/09/20 11:44 Dose: Not Given Documented by: Ondansetron HCl (Zofran Injection) 4 mg IVPUSH Q6H PRN PRN Reason: NAUSEA Pantoprazole Sodium (Protonix -) 40 mg PO DAILY [facility] Last Admin: 04/09/20 09:03 Dose: 40 mg Documented by: - Objective Vital Signs: Vital Signs Temperature 98.5 F 04/09/20 10:00 Pulse Rate 82 04/09/20 10:00 Respiratory Rate 18 04/09/20 10:00 Blood Pressure 165/78 04/09/20 10:00 O2 Sat by Pulse Oximetry (%) 99 04/09/20 10:00 Constitutional: Yes: No Distress, Calm Cardiovascular: Yes: S1, S2 Respiratory: Yes: Regular, CTA Bilaterally Gastrointestinal: Yes: Normal Bowel Sounds, Soft Musculoskeletal: Yes: WNL Extremities: Yes: WNL Neurological: Yes: Alert, Oriented Psychiatric: Yes: Alert, Oriented Labs: CBC, BMP 04/08/20 05:45 04/08/20 05:45 INR, PTT INR 1.03 (0.83-1.09) 04/03/20 07:50 Assessment/Plan Problem List - Problems (1) Severe sepsis Code(s): A41.9 - SEPSIS, UNSPECIFIED ORGANISM; R65.20 - SEVERE SEPSIS WITHOUT SEPTIC SHOCK (2) UTI (urinary tract infection) Code(s): N39.0 - URINARY TRACT INFECTION, SITE NOT SPECIFIED Qualifiers: Urinary tract infection type: site unspecified Hematuria presence: with hematuria Qualified Code(s): N39.0 - Urinary tract infection, site not specified; R31.9 - Hematuria, unspecified (3) Hypertension Code(s): I10 - ESSENTIAL (PRIMARY) HYPERTENSION (4) Obesity (BMI 30-39.9) Code(s): E66.9 - OBESITY, UNSPECIFIED (5) Transaminitis Code(s): R74.0 - NONSPEC ELEV OF LEVELS OF TRANSAMNS & LACTIC ACID DEHYDRGNSE (6) Type 2 diabetes mellitus Code(s): E11.9 - TYPE 2 DIABETES MELLITUS WITHOUT COMPLICATIONS 7 gm negative bacteremia Assessment/Plan 65 y.o. female with PMH of DM, morbid obesity, HTN, HLD, asthma, s/p chol ecystectomy presents with c/o fever/n/v since this morning. Febrile and tachycardic in ER with episode of hypotension Severe Sepsis Fever Transaminitis w/o abd pain Nausea/Vomiting UTI gm negative bacteremia repeat blood cx negative abx can be stopped
--- NOTE | 2020-04-09 12:09 | DS ---
Physical Exam: SUBJECTIVE: Patient seen and examined this AM. Tolerating diet, no new complaints, no acute overnight events. OBJECTIVE: Vital Signs Period Temp Pulse Resp BP Sys/Mckeon Pulse Ox Last 24 Hr 97.6 F-98.9 F 66-82 18-20 154-165/77-83 97-99 PHYSICAL EXAM GENERAL: A&Ox3, NAD HEAD: NCAT EYES: PERRL LUNGS: Diminished breath sounds at the bases, otherwise CTAB HEART: Regular rate and rhythm, normal S1 and S2 ABDOMEN: Soft, nontender, nondistended, + bowel sounds, no guarding, no rebound MUSCULOSKELETAL: No CVA tenderness EXTREMITIES: No edema. NEUROLOGICAL: Cranial nerves II-XII intact. Normal speech. SKIN: Warm, dry LABS Laboratory Last Values WBC 5.8 K/mm3 (4.0-10.0) 04/08/20 05:45 RBC 3.59 M/mm3 (3.60-5.2) L 04/08/20 05:45 Hgb 9.8 GM/dL (10.7-15.3) L 04/08/20 05:45 Hct 29.7 % (32.4-45.2) L 04/08/20 05:45 MCV 82.9 fl (80-96) 04/08/20 05:45 MCH 27.3 pg (25.7-33.7) 04/08/20 05:45 MCHC 32.9 g/dl (32.0-36.0) 04/08/20 05:45 RDW 14.5 % (11.6-15.6) 04/08/20 05:45 Plt Count 296 K/MM3 (134-434) 04/08/20 05:45 MPV 8.2 fl (7.5-11.1) 04/08/20 05:45 Absolute Neuts (auto) 3.3 K/mm3 (1.5-8.0) 04/08/20 05:45 Neutrophils % 56.6 % (42.8-82.8) 04/08/20 05:45 Neutrophils % (Manual) 59.8 % (42.8-82.8) 04/08/20 05:45 Band Neutrophils % 2.1 % 04/08/20 05:45 Lymphocytes % 27.5 % (8-40) 04/08/20 05:45 Lymphocytes % (Manual) 26.8 % (8-40) D 04/08/20 05:45 Monocytes % 11.2 % (3.8-10.2) H 04/08/20 05:45 Monocytes % (Manual) 8 % (3.8-10.2) D 04/08/20 05:45 Eosinophils % 3.6 % (0-4.5) 04/08/20 05:45 Eosinophils % (Manual) 2.1 % (0-4.5) D 04/08/20 05:45 Basophils % 1.1 % (0-2.0) 04/08/20 05:45 Basophils % (Manual) 0.0 % (0-2.0) 04/08/20 05:45 Myelocytes % (Man) 0 % (0-2) 04/08/20 05:45 Promyelocytes % (Man) 0 % (0-2) 04/08/20 05:45 Blast Cells % (Manual) 0 % (0-0) 04/08/20 05:45 Nucleated RBC % 2 % (0-0) H 04/08/20 05:45 Metamyelocytes 0 % (0-2) 04/08/20 05:45 Hypochromia 0 04/08/20 05:45 Platelet Estimate Normal 04/08/20 05:45 Polychromasia 0 04/08/20 05:45 Poikilocytosis 0 04/08/20 05:45 Anisocytosis 1+ 04/08/20 05:45 Microcytosis 1+ 04/08/20 05:45 Macrocytosis 0 04/08/20 05:45 PT with INR 12.10 SEC (9.7-13.0) 04/03/20 07:50 INR 1.03 (0.83-1.09) 04/03/20 07:50 PTT (Actin FS) 26.9 SECONDS (25.2-36.5) 04/03/20 07:50 D-Dimer 2325 ng/ml (0-500) H 04/03/20 07:50 VBG pH 7.386 (7.310-7.410) 04/03/20 07:54 POC VBG pCO2 44.9 mmHg (38-52) 04/03/20 07:54 POC VBG pO2 43.4 mmHg (28-48) 04/03/20 07:54 VBG HCO3 26.3 mmol/L (23-29) 04/03/20 07:54 VBG O2 Sat (Leanne) 78.4 % (70-80) 04/03/20 07:54 VBG Base Excess 1.0 mmol/L (-2-2) 04/03/20 07:54 Sodium 140 mmol/L (136-145) 04/08/20 05:45 Potassium 3.7 mmol/L (3.5-5.1) 04/08/20 05:45 Chloride 106 mmol/L (98-107) 04/08/20 05:45 Carbon Dioxide 28 mmol/L (21-32) 04/08/20 05:45 Anion Gap 6 MMOL/L (8-16) L 04/08/20 05:45 BUN 6.0 mg/dL (7-18) L 04/08/20 05:45 Creatinine 0.6 mg/dL (0.55-1.3) 04/08/20 05:45 Est GFR (CKD-EPI)AfAm 110.86 04/08/20 05:45 Est GFR (CKD-EPI)NonAf 95.65 04/08/20 05:45 POC Glucometer 133 UNITS (80-120) 04/09/20 11:11 Random Glucose 118 mg/dL (74-106) H 04/08/20 05:45 Hemoglobin A1c % 7.7 % (4.2-6.3) H 04/04/20 09:50 Lactic Acid 2.0 mmol/L (0.4-2.0) 04/03/20 15:30 Calcium 8.5 mg/dL (8.5-10.1) 04/08/20 05:45 Phosphorus 3.1 mg/dL (2.5-4.9) 04/07/20 07:40 Magnesium 2.0 mg/dL (1.8-2.4) 04/08/20 05:45 Ferritin 56.1 ng/ml (8-388) 04/03/20 07:50 Total Bilirubin 0.8 mg/dL (0.2-1) 04/08/20 05:45 Direct Bilirubin 0.8 mg/dL (0.0-0.2) H 04/06/20 06:30 AST 43 U/L (15-37) H 04/08/20 05:45 ALT 80 U/L (13-61) H 04/08/20 05:45 Alkaline Phosphatase 127 U/L (45-117) H 04/08/20 05:45 LD Total 406 U/L (84-246) H 04/03/20 07:50 Creatine Kinase 130 U/L (26-192) 04/03/20 07:50 CK-MB (CK-2) < 1.0 ng/mL (0.5-3.6) 04/03/20 07:50 Troponin I < 0.02 ng/ml (0.00-0.05) 04/03/20 18:15 C-Reactive Protein 2.0 MG/DL (0.00-0.3) H 04/03/20 07:50 Total Protein 6.5 g/dl (6.4-8.2) 04/08/20 05:45 Albumin 2.9 g/dl (3.4-5.0) L 04/08/20 05:45 Lipase 86 U/L (73-393) 04/03/20 07:50 Urine Color Yellow 04/03/20 08:12 Urine Appearance Error 04/03/20 08:12 Urine pH 6.0 (5.0-8.0) 04/03/20 08:12 Ur Specific [place] 1.018 (1.010-1.035) 04/03/20 08:12 Urine Protein Negative (NEGATIVE) 04/03/20 08:12 Urine Glucose (UA) Negative (NEGATIVE) 04/03/20 08:12 Urine Ketones Negative (NEGATIVE) 04/03/20 08:12 Urine Blood Trace (NEGATIVE) 04/03/20 08:12 Urine Nitrite Negative (NEGATIVE) 04/03/20 08:12 Urine Bilirubin Negative (NEGATIVE) 04/03/20 08:12 Urine Urobilinogen 1.0 mg/dL (0.2-1.0) 04/03/20 08:12 Ur Leukocyte Esterase Trace (NEGATIVE) 04/03/20 08:12 Urine WBC (Auto) 4 /uL (0-25.8) 04/03/20 08:12 Urine RBC (Auto) 54 /uL (0-23.9) 04/03/20 08:12 Urine Casts (Auto) 1 /uL (0-3.1) 04/03/20 08:12 U Epithel Cells (Auto) 14 /uL (0-25.1) 04/03/20 08:12 Urine Bacteria (Auto) 1089 /uL (0-1359) 04/03/20 08:12 COVID-19 (MIRELLA) Not detected (Not Detected) 04/03/20 07:50 Hep A IgM Ab Confirm Negative (Negative) 04/03/20 18:15 Hepatitis A Ab Total Positive (Negative) H 04/03/20 18:15 Hep Bs Antigen Negative (Negative) 04/03/20 18:15 Hep Bs Antibody Non reactive (.) 04/03/20 18:15 Hep B Core Total Ab Negative (Negative) 04/03/20 18:15 Hep B Core IgM Ab Negative (Negative) 04/03/20 18:15 Hepatitis Be Antibody Negative (Negative) 04/03/20 18:15 Hepatitis Be Antigen Negative (Negative) 04/03/20 18:15 Hepatitis C Antibody <0.1 s/co ratio (0.0-0.9) 04/03/20 18:15 Microbiology 04/06/20 10:32 Blood - Peripheral Venous Blood Culture - Preliminary NO GROWTH OBTAINED AFTER 72 HOURS, INCUBATION TO CONTINUE FOR 2 DAYS. 04/06/20 10:40 Blood - Peripheral Venous Blood Culture - Preliminary NO GROWTH OBTAINED AFTER 72 HOURS, INCUBATION TO CONTINUE FOR 2 DAYS. 04/04/20 20:55 Blood - Peripheral Venous Blood Culture - Preliminary NO GROWTH OBTAINED AFTER 96 HOURS, INCUBATION TO CONTINUE FOR 1 DAYS. 04/04/20 20:50 Blood - Peripheral Venous Blood Culture - Preliminary NO GROWTH OBTAINED AFTER 96 HOURS, INCUBATION TO CONTINUE FOR 1 DAYS. 04/04/20 15:15 Urine - Urine - Catheterized Urine Culture - Final NO GROWTH OBTAINED 04/03/20 07:50 Blood - Peripheral Venous Blood Culture - Final Lactose Fermenting Neg Bacilli 04/03/20 07:50 Blood - Peripheral Venous Blood Culture - Final Klebsiella Pneumoniae 04/03/20 08:12 Urine - Urine Clean Catch Urine Culture - Final Contaminated: Please Repeat HOSPITAL COURSE: Date of Admission:04/03/20 Date of Discharge: 04/09/20 65 y/o F PMHx DM, HTN, HLD, asthma, s/p cholecystectomy, obesity (BMI 38) presented with Nausea/Vomiting and fever, admitted for Sepsis. The source of the sepsis was likely billary in nature; Initial lab work revealed leukocytosis, transaminitis, lactic acidosis and +UA (asymptomatic). CT A/P revealed pneumobilia with fatty infiltration of the liver. GI and ID were consulted. Initial blood cultures were positive for gram negative bacteremia. Patient Completed a course of Zosyn and repeat cultures were negative. Transaminitis improved, patient remained afebrile. Pt refused inpatient MRCP and was recommended outpt GI follow up. Home BP regimen was adjust and she was started on HCTZ and Enalapril with which her BP Improved. Patient to be discharged home with the below instructions for Lab/Imaging/Operations Staff Specialist Security followup. Minutes to complete discharge: 36 Discharge Summary Problems reviewed: Yes Reason For Visit: SEVERE SEPSIS Current Active Problems Elevated liver enzymes (Acute) Gram-negative bacteremia (Acute) Hypertension (Acute) Hypokalemia (Acute) Hypomagnesemia (Acute) Lung nodule (Acute) Obesity (BMI 30-39.9) (Acute) Sepsis (Acute) Severe sepsis (Acute) Suspected 2019 novel coronavirus infection (Acute) Transaminitis (Acute) Type 2 diabetes mellitus (Acute) UTI (urinary tract infection) (Acute) Condition: Improved - Instructions Diet, Activity, Other Instructions: You presented to the hospital with nausea, vomiting and fever. Imaging of your abdomen did not reveal a source. You received IV antibiotics and your symptoms improved. Your A1c remains above goal, currently it is 7.7%. Please continue your diabetes meds and discuss this further with your PCP as you need to have this level rechecked in 3 months. Catscan of your abdomen revealed you have Fatty infiltration of your liver. Please discuss this further with your PCP as much of this can be addressed with healthier lifestyle choices including weight loss, exercise and decreased calorie intake. Medication Changes: 1. you are being started on HCTZ (HydroChloraThiaZide) 25mg, to be taken once daily 2. you are being started on Enalapril 20mg, to be taken once daily 3. Please continue all of your other home medications. Follow up with the following physicians: 1. PCP in one week, please call to schedule follow up, your work up is not complete until you do so. 2. Supervisor Steno Pool in one week, please call to schedule follow up as you need to have an MRCP (MRI Imaging of your abdomen) to determine if your billiary t ract is the source of infection. Additionally you will need to have blood work to check your liver enzyme levels as these were elevated during your hospital stay. Follow up labs: 1. Electrolytes + Liver function test, Mag, Phos in one week 2. Complete blood count as your Hemoglobin has decreased slightly during your stay. Please discuss this further with your PCP. Follow up Imagin. Catscan of your chest revealed a 7mm nodule in the right upper lobe. It is recommend to have a 3-6 month follow-up noncontrast CT scan to assess stability. Please discuss this further with your PCP. You are being discharged home. Please continue to monitor your diet as you need to intake less sugar and salt. Please return to the ER if you have any signs or symptoms of chest pain, shortness of breath, uncontrollable fever, chills, nausea, vomiting, numbness, tingling, or weakness in any part of your body, changes in vision, or slurred speech. Please return to the ER if symptoms persist, worsen, or new symptoms arise. Referrals: Elisa Carl MD [Staff Physician] - 1 Week Berny Soares MD [Staff Physician] - Disposition: HOME - Home Medications Comprehensive Discharge Medication List: Ambulatory Orders Glipizide [Glipizide Xl] 0 mg PO DAILY 04/03/20 Docusate Sodium [Colace -] 100 mg PO Q12H PRN #14 capsule 04/09/20 Enalapril Maleate [Vasotec -] 20 mg PO DAILY #30 tablet 04/09/20 Hydrochlorothiazide [Hctz -] 25 mg PO DAILY #30 tablet 04/09/20 Simvastatin 20 mg PO DAILY #30 tablet 04/09/20 This patient is new to me today: Yes Date on this admission: 04/09/20 Emergency Visit: Yes ED Registration Date: 04/03/20 Care time: The patient presented to the Emergency Department on the above date and was hospitalized for further evaluation of their emergent condition. Critical Care patient: No - Discharge Referral Referred to [facility] Med [facility].: No ATTENDING PHYSICIAN STATEMENT I saw and evaluated the patient. I reviewed the resident's note and discussed the case with the resident. I agree with the resident's findings and plan as documented. SUBJECTIVE: OBJECTIVE: ASSESSMENT AND PLAN:
[2020-04-09] MEDS: ACETAMINOPHEN 325 MG TABLET (FP) PO PRN (13:02)
[2020-04-12] MEDS ORDERED: ONDANSETRON 4 MG/2 ML VIAL IVPUSH PRN (06:22)
== END 2020-04-09 14:43 | disposition home or self-care (01) | DRG 720 ==
LOC: JER 06:58 → JERBED 11:28 → J7W 13:17
PROVIDERS: ADMIT Internal Medicine; ATTEND Student in an Organized Health Care Education/Training Program
DX: A41.59 Other Gram-negative sepsis (principal); R65.20 Severe sepsis without septic shock; E11.9 Type 2 diabetes mellitus without complications; I10 Essential (primary) hypertension; J45.909 Unspecified asthma, uncomplicated; I45.10 Unspecified right bundle-branch block; R00.0 Tachycardia, unspecified; E66.9 Obesity, unspecified; Z68.38 Body mass index [BMI] 38.0-38.9, adult; R74.0 Nonspecific elevation of levels of transaminase and lactic acid dehydrogenase [LDH]; N39.0 Urinary tract infection, site not specified; R91.1 Solitary pulmonary nodule; E87.6 Hypokalemia; R11.2 Nausea with vomiting, unspecified; E83.42 Hypomagnesemia; E87.2 Acidosis; R74.8 Abnormal levels of other serum enzymes; K76.0 Fatty (change of) liver, not elsewhere classified; D72.829 Elevated white blood cell count, unspecified; K80.50 Calculus of bile duct without cholangitis or cholecystitis without obstruction
CPT/HCPCS: 36415; 71045-TC-FY; 71275-TC; 74176-TC; 76705-TC; 80053; 81003; 82248; 82550; 82553; 82728; 82803; 82962; 83036; 83605; 83615; 83690; 83735; 84100; 84484; 85025; 85379; 85610; 85730; 86140; 86704; 86706; 86707; 86708; 86709; 86803; 87040; 87086; 87186; 87340; 93005; 93010; 99285-25; J0131; U0003

== ENCOUNTER 2020-04-15 16:07 | Inpatient (IN) | payer OTHER ==
--- NOTE | 2020-04-15 17:00 | PDOC ---
History of Present Illness - General Chief Complaint: Revisit, Lab Variance Stated Complaint: Abnormal Labs Time Seen by Provider: 04/15/20 16:42 History Source: Patient Exam Limitations: No Limitations - History of Present Illness Initial Comments: 04/15/20 17:02 65 yo female with PMHx of HTN, HLD, NIDDM, morbid obesity, cholecystectomy (2009), recent bacteremia presenting w + blood cx drawn 04/12 for staph coagulase neg. Pt admitted twice within past month for fevers, abd pain w workup showing elevated LFTs and dilated CBD 9mm treated w IV antibiotics. Prior blood cx 04/03 showed gram - bacilli, klebsiella pneumonia. Pt denies fever, n/v, abd pain, urinary/bowel mvmt changes. Spoke w Dr Roberto Vega who contacted her to come back to the hospital, advised to give vanc and admit Past History - Medical History Allergies/Adverse Reactions: Allergies Allergy/AdvReac Type Severity Reaction Status Date / Time No Known Allergies Allergy Verified 04/15/20 16:17 Home Medications: Ambulatory Orders Glipizide [Glipizide Xl] 0 mg PO DAILY 04/03/20 Docusate Sodium [Colace -] 100 mg PO Q12H PRN #14 capsule 04/09/20 Enalapril Maleate [Vasotec -] 20 mg PO DAILY #30 tablet 04/09/20 Hydrochlorothiazide [Hctz -] 25 mg PO DAILY #30 tablet 04/09/20 Simvastatin 20 mg PO DAILY #30 tablet 04/09/20 Ciprofloxacin HCl 500 mg PO BID #28 tablet 04/14/20 Lactobacillus Acidophilus [Bacid -] 1 each PO DAILY #14 capsule 04/14/20 Ursodiol [Actigal -] 300 mg PO BID #60 capsule 04/14/20 metroNIDAZOLE [Flagyl -] 250 mg PO TID #42 tablet 04/14/20 Asthma: Yes COPD: No Diabetes: Yes HTN: Yes - Surgical History Abdominal Surgery: Yes (cholecystectomy) - Immunization History Immunization Up to Date: No - Psycho-Social/Smoking History Smoking History: Never smoked Review of Systems - Review of Systems Constitutional: No: Chills, Fever HEENTM: No: Eye Pain, Nose Pain Respiratory: No: Cough, Shortness of Breath Cardiac (ROS): No: Chest Pain, Lightheadedness ABD/GI: No: Nausea, Vomiting : No: Burning, Dysuria Musculoskeletal: No: Back Pain, Joint Pain Integumentary: No: Bruising, Dryness Neurological: No: Headache, Seizure Psychiatric: No: Anxiety, Depression Endocrine: No: Intolerance to Cold, Intolerance to Heat Hematologic/Lymphatic: No: Anemia, Blood Clots *Physical Exam - Vital Signs Last Vital Signs Temp Pulse Resp BP Pulse Ox 98.5 F 118 H 18 148/87 97 04/15/20 16:11 04/15/20 16:11 04/15/20 16:11 04/15/20 16:11 04/15/20 16:11 - Physical Exam General Appearance: Yes: Nourished, Appropriately Dressed. No: Apparent Distress HEENT: positive: EOMI, DAVID, Normal Voice, Hearing Grossly Normal. negative: Scleral Icterus (R), Scleral Icterus (L) Respiratory/Chest: positive: Lungs Clear, Normal Breath Sounds. negative: Chest Tender, Respiratory Distress Cardiovascular: positive: Regular Rhythm, Regular Rate, S1, S2. negative: Edema, Murmur Gastrointestinal/Abdominal: positive: Normal Bowel Sounds, Flat, Soft. negative: Tender, Organomegaly Extremity: negative: Pedal Edema Integumentary: positive: Normal Color, Warm. negative: Dry Neurologic: positive: Fully Oriented, Alert, Normal Mood/Affect, Normal Response ED Treatment Course - LABORATORY CBC & Chemistry Diagram: 04/15/20 18:00 04/15/20 18:00 Medical Decision Making - Medical Decision Making 04/15/20 19:14 EKG - sinus bradycardia, LAD, RBBB, HR 117, QTc 504, TWI V1-4, unchanged --- 65 yo female with PMHx of HTN, HLD, NIDDM, morbid obesity, cholecystectomy (2009), recent bacteremia presenting w + blood cx drawn 04/12 for staph coagulase neg. Spoke w Dr Roberto Vega who contacted her to come back to the hospital, advised to give vanc and admit 2 sets of blood cultures were drawn from 2 different cleaned venous sites Given vanc Admit m/s for gram+ bacteremia after labs resulted Signed out to night team -pending lab results Discharge - Discharge Information Problems reviewed: Yes Clinical Impression/Diagnosis: Gram positive bacterial infection Condition: Stable - Follow up/Referral Referrals: Baldev Lopez MD [Primary Care Provider] - - Patient Discharge Instructions - Post Discharge Activity
[2020-04-15] MEDS ORDERED: SODIUM CHLORIDE 0.9% 500 ML INFUS.BAG IV ONE (17:34)
--- NOTE | 2020-04-15 18:20 | PDOC ---
Documentation entered by Carmen Nassar SCRIBE, acting as scribe for Freedom Garcia MD. Freedom Garcia MD: This documentation has been prepared by the caroleibCesario elizabeth Lincy, SCRIBE, under my direction and personally reviewed by me in its entirety. I confirm that the documentation accurately reflects all work, treatment, procedures, and medical decision making performed by me. Attending Attestation - Resident Resident Name: Garfield Clayton - ED Attending Attestation I have performed the following: I have examined & evaluated the patient, The case was reviewed & discussed with the resident, I agree w/resident's findings & plan, Exceptions are as noted - HPI HPI: 04/15/20 17:31 65y F hx of hx of htn, hl, dm, cholecystecomty in 2009, with recent admission for bactermia presents to the ER as she was called back for + blood cultures - Patient states that she has been feeling fine since she was at home, denies any associated fever, chills, nausea, vomiting, generalized weakness, chest pain, cough, abdominal pain, diarrhea/dysuria. She is only here because she was told to come back to the ED. - Physicial Exam PE: 04/15/20 18:18 exam: No acute distress card: slightly tachycardic, no m/r/g pulm: cta bl, no wheezing/rales abd: soft non tender, no rebound/guarding, no cva tenderness ext: no edema - Medical Decision Making 04/15/20 18:19 call back for +blood cultures - gram+ cocci in 1 tube - possible contaminant pt asymptmoatic wo fever noted slightly tachcyarddia, may be from dehyraiton - will hydrate will recheck labs dispo pending reasessment/labs Heart Score/ECG Review - ECG Impressions Comment:: 04/15/20 18:56 Twelve-lead EKG was performed and reviewed by me. There is normal sinus rhythm with a Rate of 117 left axis deviation RBBB Discharge - Discharge Information Problems reviewed: Yes Clinical Impression/Diagnosis: Gram positive bacterial infection Condition: Stable - Follow up/Referral - Patient Discharge Instructions - Post Discharge Activity
[2020-04-15 18:50] LABS: EOS % 2.4 % (0-4.5); HEMATOCRIT 34.5 % (32.4-45.2); HEMOGLOBIN 11.4 GM/dL (10.7-15.3); MCH 27.5 pg (25.7-33.7); MCHC 32.9 g/dl (32.0-36.0); MEAN CELL VOLUME 83.5 fl (80-96); MEAN PLT VOLUME 8.8 fl (7.5-11.1); MONO % 6.4 % (3.8-10.2); NEUT % 67.2 % (42.8-82.8); PLATELET COUNT 419 K/MM3 (134-434); RBC 4.14 M/mm3 (3.60-5.2); RDW 14.4 % (11.6-15.6); WHITE BLOOD COUNT 7.1 K/mm3 (4.0-10.0)
[2020-04-15 18:58] LABS: INR 1.04 (0.83-1.09); PROTHROMBIN TIME (PATIENT) 12.3 SEC (9.7-13.0)
[2020-04-15] MEDS ORDERED: VANCOMYCIN 1 GM in D5W (PRE-DOCKED) 1,000 MG/250 ML IVPB ONE (19:03)
[2020-04-15] MEDS ORDERED: VANCOMYCIN 1 GRAM (PRE-DOCKED) 1,000 MG/250 ML BAG IVPB ONE (19:11)
[2020-04-15 19:21] LABS: ALBUMIN 3.8 g/dl (3.4-5.0); BILIRUBIN,TOTAL 0.8 mg/dL (0.2-1); BLOOD UREA NITROGEN 9.7 mg/dL (7-18); CALCIUM 9.8 mg/dL (8.5-10.1); CREATININE 0.9 mg/dL (0.55-1.3); POTASSIUM 3.7 mmol/L (3.5-5.1); TOT PROT 7.8 g/dl (6.4-8.2)
--- NOTE | 2020-04-15 20:28 | PDOC ---
*Physical Exam - Vital Signs Last Vital Signs Temp Pulse Resp BP Pulse Ox 99.5 F 92 H 18 137/64 99 04/15/20 17:19 04/15/20 19:43 04/15/20 19:43 04/15/20 19:43 04/15/20 19:43 ED Treatment Course - LABORATORY CBC & Chemistry Diagram: 04/15/20 18:00 04/15/20 18:00 - ADDITIONAL ORDERS Additional order review: Laboratory Results 04/15/20 04/15/20 18:00 18:00 PT with INR 12.30 INR 1.04 Sodium 139 Potassium 3.7 Chloride 103 Carbon Dioxide 26 Anion Gap 10 BUN 9.7 Creatinine 0.9 Est GFR (CKD-EPI)AfAm 77.77 Est GFR (CKD-EPI)NonAf 67.10 Random Glucose 143 H Calcium 9.8 Total Bilirubin 0.8 AST 38 H ALT 68 H Alkaline Phosphatase 175 H Total Protein 7.8 Albumin 3.8 TSH 1.77 04/15/20 18:00 RBC 4.14 MCV 83.5 MCHC 32.9 RDW 14.4 MPV 8.8 Neutrophils % 67.2 Lymphocytes % 23.0 Monocytes % 6.4 Eosinophils % 2.4 Basophils % 1.0 - Medications Given in the ED: ED Medications Discontinued Medications Generic Name Dose Route Start Last Admin Trade Name Freq PRN Reason Stop Dose Admin Sodium Chloride 1,000 ml 04/15/20 17:34 04/15/20 18:21 Normal Saline - IV 04/15/20 17:35 1,000 ml ONCE ONE Administration Vancomycin HCl 1,000 mg 04/15/20 19:03 04/15/20 19:15 Vancomycin (Pre-Docked) IVPB 04/15/20 19:04 1,000 mg ONCE ONE Administration Protocol Medical Decision Making - Medical Decision Making EKG - sinus bradycardia, LAD, RBBB, HR 117, QTc 504, TWI V1-4, unchanged --- 65F with PMHx of HTN, HLD, NIDDM, morbid obesity, cholecystectomy (2009), recent bacteremia presenting w + blood cx drawn 04/12 for staph coagulase neg. 2 sets of blood cultures were drawn from 2 different cleaned venous sites Given 1g IV vanc Admit m/s for gram+ bacteremia after labs resulted Signed out from day team -CBC demonstrated WBC within normal limits, CMP unremarkable. -per Dr. Vega, give vanc and admit Discharge - Discharge Information Problems reviewed: Yes Clinical Impression/Diagnosis: Gram positive bacterial infection Condition: Stable - Admission Yes - Follow up/Referral Referrals: Baldev Lopez MD [Primary Care Provider] - - Patient Discharge Instructions - Post Discharge Activity
--- NOTE | 2020-04-15 21:50 | PN ---
Teaching Attending Note Name of Resident: Alireza Alvarenga ATTENDING PHYSICIAN STATEMENT I saw and evaluated the patient. I reviewed the resident's note and discussed the case with the resident. I agree with the resident's findings and plan as documented. SUBJECTIVE: Patient is a 65 year old woman with a PMH of HTN, HLD, NIDDM, Morbid obesity, Ch olecystectomy (2009), Recently treated Klebsiella Pneumoniae bacteremia (04/03/2020) called to come to the hospital for positive blood culture for Staph Coagulase negative fro 04/12/20. Patient hospitalized twice this month for fevers and abdominal pain - workup revealed elevated LFTs and dilated CBD 9mm. Patient denies chest pain, shortness of breath, abdominal pain, headache, palpitations, dizziness, fever, chills, nausea, vomiting, diarrhea, constipation, dysuria, frequency, urgency, melena, hematochezia or hematuria. Denies alcohol, tobacco or illicit drug use. No sick contacts or recent travels. Family history is unremarkable. OBJECTIVE: Alert Vital Signs Period Temp Pulse Resp BP Sys/Mckeon Pulse Ox Last 24 Hr 98.5 F-99.5 F 83-118 18-20 137-151/64-87 96-99 HEENT: No Jaundice, eye redness or discharge, PERRLA, EOMI. Normocephalic, atraumatic. External ears are normal and hearing is grossly intact. No nasal discharge. Neck: Supple, nontender. No palpable adenopathy or thyromegaly. No JVD Chest: Good effort. Clear to auscultation and percussion. Heart: Regular. No S3, rub or murmur Abdomen: Not distended, soft, nontender and no HSM. No rebound or guarding. No rmal bowel sounds. Ext: Peripheral pulses intact. No leg edema. Skin: Warm and dry. No petechiae, rash or ecchymosis. Neuro: Alert. Oriented x3. CN 2-12 grossly intact. Sensation grossly intact in all four extremities and DTR are symmetric. Psych: Appropriate mood and affect. Good insight. Home Medications Medication Instructions Recorded Glipizide [Glipizide Xl] 0 mg PO DAILY 04/03/20 Docusate Sodium [Colace -] 100 mg PO Q12H PRN #14 capsule 04/09/20 Enalapril Maleate [Vasotec -] 20 mg PO DAILY #30 tablet 04/09/20 Hydrochlorothiazide [Hctz -] 25 mg PO DAILY #30 tablet 04/09/20 Simvastatin 20 mg PO DAILY #30 tablet 04/09/20 Ciprofloxacin HCl 500 mg PO BID #28 tablet 04/14/20 Lactobacillus Acidophilus [Bacid -] 1 each PO DAILY #14 capsule 04/14/20 Ursodiol [Actigal -] 300 mg PO BID #60 capsule 04/14/20 metroNIDAZOLE [Flagyl -] 250 mg PO TID #42 tablet 04/14/20 Abnormal Lab Results 04/15/20 18:00 Random Glucose 143 H AST 38 H ALT 68 H Alkaline Phosphatase 175 H Current Medications Generic Name Dose Route Start Last Admin Trade Name Leonides PRN Reason Stop Dose Admin Enoxaparin Sodium 40 mg 04/16/20 10:00 Lovenox - SQ DAILY [facility] Insulin Aspart 1 vial 04/16/20 07:00 Novolog Vial Sliding Scale - SQ ACHS [facility] Protocol Levofloxacin 500 mg 04/16/20 06:00 Levaquin - PO DAILY@0600 [facility] Metronidazole 250 mg 04/16/20 06:00 Flagyl - PO TID [facility] Ursodiol 300 mg 04/16/20 10:00 Actigal - PO BID [facility] ASSESSMENT AND PLAN: 1. Staph coagulase negative bacteremia - Likely contaminant, but the primary team that took care of her wanted the ER staff to start Vancomycin IV after repeat blood cultures. Consult ID. Continue to trend improving LFTs and get urinalysis. EKG shows sinus tachycardia at 117/minute, RBBB, LAD and QTc 504 with T wave inversion in V1-V4. Not significantly changed compared to prior EKG. Will avoid drugs that may prolong QTc. Will hydrate her with IV NS. Viral testing for COVID-19 ordered and patient placed on airborne, droplet and contact isolation. Will continue comprehensive care for all of patients comorbid conditions. 2. DM For now, we will hold the home diabetes drugs and implement sliding scale insulin regimen. Provide comprehensive diabetes care with patient teaching and counseling about the importance of adherence to prescribed diabetes regimen, euglycemia, eye care and foot care. 3. Morbid obesity Counseled on the risks associated with obesity. Will provide patient all the necessary assistance, counseling and positive reinforcement to facilitate weight loss. Consult ground helper street railway. 4. Hypertension Will restart suitable outpatient antihypertensive drugs when clinically appropriate. Subsequently, will revise regimen to ensure [id number] excellent BP control. Patient counseled on the injurious effects of uncontrolled hypertension. Nonpharmacologic measures to control hypertension like weight loss, salt restriction and exercise stressed. Importance of adherence to treatment regimen and attainment of normotension emphasized. 5. DVT prophylaxis - Lovenox 40 mg SQ q 12 hours. 6. Advance directives - Full code.
--- NOTE | 2020-04-16 01:05 | HP ---
CHIEF COMPLAINT: Called to Emergency Room because blood cultures from previous admission came back +1 out of 2 cultures PCP: Dr. Baldev Lopez HISTORY OF PRESENT ILLNESS: 65 year old female patient with past medical history that includes HTN, HLD, NIDDM, and cholecystectomy, who presented to the ED after being called in due to blood cultures from her previous admission coming back positive +1 out of 2. She had previously come to the ED on 04/03/2020 due to abdominal pain, nausea, and vomiting, and the patient was admitted for sepsis. During her workup then, a CT A/P found air in her biliary tree and fatty infiltration of her liver. The patient's initial blood cultures on 04/03/2020 were positive for gram negative bacteremia, so the patient completed a course of Zosyn, and the repeat cultures were negative, and the patient was discharged on 04/09/2020. The patient was then readmitted on 04/11/2020 for fever, chills, nausea, and abdominal pain. The patient had a fever of 102.6 and blood cultures were drawn. The patient was again started on IV antibiotics, and was discharged on 04/15/2020 with 500mg Ciprofloxacin PO BID and 250mg Flagyl PO TID. Today, one of the patient's two blood cultures from 04/11/2020 came back positive for Staphylococcus Coagulase Negative, so the patient was called and asked to go to the emergency room immediately. The patient, at bedside, reports no fever/chills, nausea/vomiting, diarrhea, abdominal pain, cough, dysuria, or chest pain. The patient had 2 bl ood cultures drawn off again today, and was given 1 gram Vancomycin and 1 liter Normal Saline. ER course was notable for: (1) 2x Blood Cultures (2) 1g Vancomycin (3) 1 liter NS Recent Travel: PAST MEDICAL HISTORY: HTN, HLD, NIDDM PAST SURGICAL HISTORY: cholecystectomy 2009, left shoulder surgery Social History: Smoking: Denies Alcohol: Denies Drugs: Denies Allergies No Known Allergies Allergy (Verified 04/15/20 16:17) HOME MEDICATIONS: Home Medications Medication Instructions Recorded Glipizide [Glipizide Xl] 0 mg PO DAILY 04/03/20 Docusate Sodium [Colace -] 100 mg PO Q12H PRN #14 capsule 04/09/20 Enalapril Maleate [Vasotec -] 20 mg PO DAILY #30 tablet 04/09/20 Hydrochlorothiazide [Hctz -] 25 mg PO DAILY #30 tablet 04/09/20 Simvastatin 20 mg PO DAILY #30 tablet 04/09/20 Ciprofloxacin HCl 500 mg PO BID #28 tablet 04/14/20 Lactobacillus Acidophilus [Bacid -] 1 each PO DAILY #14 capsule 04/14/20 Ursodiol [Actigal -] 300 mg PO BID #60 capsule 04/14/20 metroNIDAZOLE [Flagyl -] 250 mg PO TID #42 tablet 04/14/20 REVIEW OF SYSTEMS CONSTITUTIONAL: Absent: no fever/chills, no generalized weakness CARDIOVASCULAR: Absent: no chest pain RESPIRATORY: Absent: no cough, no shortness of breath GASTROINTESTINAL: Absent: no abdominal pain, no nausea, no vomiting, no diarrhea GENITOURINARY: Absent: no dysuria SKIN: right small plantar wrist erythematous rash mildly itchy Absent: PHYSICAL EXAMINATION Vital Signs - 24 hr 04/15/20 04/15/20 04/15/20 16:11 17:14 17:19 Temperature 98.5 F 99.5 F Pulse Rate 118 H Pulse Rate [ 106 H Apical] Respiratory 18 Rate Blood Pressure 148/87 Blood Pressure [Right Arm] O2 Sat by Pulse 97 99 Oximetry (%) 04/15/20 04/15/20 04/15/20 19:43 21:50 23:57 Temperature 98.6 F Pulse Rate Pulse Rate [ 92 H 83 Apical] Respiratory 18 20 Rate Blood Pressure Blood Pressure 137/64 151/72 [Right Arm] O2 Sat by Pulse 99 96 98 Oximetry (%) GENERAL: Awake, alert, and fully oriented, in no acute distress. HEAD: Normal with no signs of trauma. EYES: Pupils equal, round and reactive to light, extraocular movements intact. No lid lag. EARS, NOSE, THROAT: Ears normal, nares patent, oropharynx clear without exudates. Moist mucous membranes. NECK: Normal range of motion, supple without lymphadenopathy, JVD, or masses. LUNGS: Breath sounds equal, clear to auscultation bilaterally. No wheezes, and no crackles. No accessory muscle use. HEART: Regular rate and rhythm, normal S1 and S2 without murmur, rub or gallop. ABDOMEN: Soft, nontender, high BMI, normoactive bowel sounds, no guarding, no rebound, no masses. MUSCULOSKELETAL: Normal range of motion at all joints. No bony deformities or tenderness. UPPER EXTREMITIES: 2+ pulses, warm, well-perfused. No cyanosis. No clubbing. No peripheral edema. LOWER EXTREMITIES: 2+ pulses, warm, well-perfused. No calf tenderness. No peripheral edema. NEUROLOGICAL: Normal speech. PSYCHIATRIC: Cooperative. Good eye contact. Appropriate mood and affect. SKIN: Warm, dry, normal turgor, no rashes or lesions noted, normal capillary refill. Right small plantar wrist erythematous rash. Laboratory Results - last 24 hr 04/15/20 04/15/20 04/15/20 18:00 18:00 18:00 WBC 7.1 RBC 4.14 Hgb 11.4 Hct 34.5 MCV 83.5 MCH 27.5 MCHC 32.9 RDW 14.4 Plt Count 419 MPV 8.8 Absolute Neuts (auto) 4.8 Neutrophils % 67.2 Lymphocytes % 23.0 Monocytes % 6.4 Eosinophils % 2.4 Basophils % 1.0 Nucleated RBC % 0 PT with INR 12.30 INR 1.04 Sodium 139 Potassium 3.7 Chloride 103 Carbon Dioxide 26 Anion Gap 10 BUN 9.7 Creatinine 0.9 Est GFR (CKD-EPI)AfAm 77.77 Est GFR (CKD-EPI)NonAf 67.10 POC Glucometer Random Glucose 143 H Calcium 9.8 Total Bilirubin 0.8 AST 38 H ALT 68 H Alkaline Phosphatase 175 H Total Protein 7.8 Albumin 3.8 TSH 1.77 04/16/20 00:04 WBC RBC Hgb Hct MCV MCH MCHC RDW Plt Count MPV Absolute Neuts (auto) Neutrophils % Lymphocytes % Monocytes % Eosinophils % Basophils % Nucleated RBC % PT with INR INR Sodium Potassium Chloride Carbon Dioxide Anion Gap BUN Creatinine Est GFR (CKD-EPI)AfAm Est GFR (CKD-EPI)NonAf POC Glucometer 141 Random Glucose Calcium Total Bilirubin AST ALT Alkaline Phosphatase Total Protein Albumin TSH ASSESSMENT/PLAN: 65 year old female patient with past medical history that includes HTN, HLD, NIDDM, and cholecystectomy, who presented to the ED after being called in due to blood cultures from her previous admission coming back positive +1 out of 2. 1. Positive Blood Cultures +1 out of 2 Possibly Secondary To Contamination - Previous blood cultures were lactose fermenting negative bacilli and klebsiella pneumoniae on 04/03 and received Zosyn. - Blood Culture now positive for staphylcoccus coagulase negative - Received Vancomycin 1g in the ED - Patient previously discharged on Ciprofloxacin and Flagyl - Continuing the Ciprofloxacin and Flagyl 2. DM - Novolog Sliding Scale - Blood Glucose Monitors 3. HTN - Home meds: HCTZ, Enalapril 4. HLD - Home meds: Simvastatin 5. Morbid Obesity - BMI 43 - Scratch Polisher consulted # FEN - Monitor Electrolytes. Diabetic/Sodium Diet. DVT PPx - Lovenox SQ Family Medical History Family History: Denies Visit type - Medication Review Med list reviewed for High Risk Meds patients 65 and older: Yes - Emergency Visit Emergency Visit: Yes ED Registration Date: 04/15/20 Care time: The patient presented to the Emergency Department on the above date and was hospitalized for further evaluation of their emergent condition. - New Patient This patient is new to me today: Yes Date on this admission: 04/16/20 - Critical Care Critical Care patient: No ATTENDING PHYSICIAN STATEMENT I saw and evaluated the patient. I reviewed the resident's note and discussed the case with the resident. I agree with the resident's findings and plan as documented. SUBJECTIVE: OBJECTIVE: ASSESSMENT AND PLAN:
[2020-04-16 04:14] LABS: URINE APPEARANCE CLEAR; URINE BILIRUBIN NEGATIVE (NEGATIVE); URINE COLOR YELLOW; URINE GLUCOSE (UA) NEGATIVE (NEGATIVE); URINE KETONE NEGATIVE (NEGATIVE); URINE LEUK ESTERASE NEGATIVE (NEGATIVE); URINE NITRITE NEGATIVE (NEGATIVE); URINE PROTEIN NEGATIVE (NEGATIVE); URINE UROBILINOGEN 0.2 mg/dL (0.2-1.0)
[2020-04-16] MEDS ORDERED: metroNIDAZOLE 250 MG TABLET PO SCH (06:00)
[2020-04-16 06:11] LABS: BASO % 1.2 % (0-2.0); EOS % 4.2 % (0-4.5); HEMATOCRIT 33.1 % (32.4-45.2); HEMOGLOBIN 11.1 GM/dL (10.7-15.3); LYMPH % 33.2 % (8-40); MCH 27.5 pg (25.7-33.7); MCHC 33.4 g/dl (32.0-36.0); MEAN CELL VOLUME 82.2 fl (80-96); MEAN PLT VOLUME 8.4 fl (7.5-11.1); MONO % 8.2 % (3.8-10.2); NEUT % 53.2 % (42.8-82.8); PLATELET COUNT 400 K/MM3 (134-434); RBC 4.02 M/mm3 (3.60-5.2); RDW 14.6 % (11.6-15.6)
[2020-04-16 06:37] LABS: ALBUMIN 3.4 g/dl (3.4-5.0); BLOOD UREA NITROGEN 7.2 mg/dL (7-18); CALCIUM 9.3 mg/dL (8.5-10.1); CREATININE 0.7 mg/dL (0.55-1.3); MAGNESIUM 1.7 mg/dL (1.8-2.4); PHOSPHOROUS 4.1 mg/dL (2.5-4.9); POTASSIUM 3.8 mmol/L (3.5-5.1); TOT PROT 7.3 g/dl (6.4-8.2)
[2020-04-16] MEDS: INSULIN SLIDING SCALE (NOVOLOG) 1 VIAL SQ SCH ×4 (06:59→22:38)
--- NOTE | 2020-04-16 08:57 | CON.ID ---
Consult Consult Specialty:: infectious diseases Referred by:: hospitalist Reason for Consultation:: bacteremia - History of Present Illness Chief Complaint: bacteremia History of Present Illness: 65 year old female patient with past medical history that includes HTN, HLD, NIDDM, and cholecystectomy, who presented to the ED after being called in due to blood cultures from her previous admission coming back positive +1 out of 2. She had previously come to the ED on 04/03/2020 due to abdominal pain, nausea, and vomiting, and the patient was admitted for sepsis. During her workup then, a CT A/P found air in her biliary tree and fatty infiltration of her liver. The patient's initial blood cultures on 04/03/2020 were positive for gram negative bacteremia, so the patient completed a course of Zosyn, and the repeat cultures were negative, and the patient was discharged on 04/09/2020. The patient was then readmitted on 04/11/2020 for fever, chills, nausea, and abdominal pain. The patient had a fever of 102.6 and blood cultures were drawn. The patient was again started on IV antibiotics, and was discharged on 04/15/2020 with 500mg Ciprofloxacin PO BID and 250mg Flagyl PO TID. Today, one of the patient's two blood cultures from 04/11/2020 came back positive for Staphylococcus Coagulase Negative, so the patient was called and asked to go to the emergency room immediately and patient got admitted patient received abx currently patient feels better ,has been afebrile since admission - History Source History Provided By: Patient, Medical Record Limitations to Obtaining History: Language Barrier - Past Medical History Cardio/Vascular: Yes: HTN, Hyperlipdemia Pulmonary: Yes: Asthma Endocrine: Yes: Diabetes Mellitus - Past Surgical History Past Surgical History: Yes: Cholecystectomy - Alcohol/Substance Use Hx Alcohol Use: No - Smoking History Smoking history: Never smoked Home Medications - Allergies Allergies/Adverse Reactions: Allergies Allergy/AdvReac Type Severity Reaction Status Date / Time No Known Allergies Allergy Verified 04/15/20 16:17 - Home Medications Home Medications: Ambulatory Orders Glipizide [Glipizide Xl] 0 mg PO DAILY 04/03/20 Docusate Sodium [Colace -] 100 mg PO Q12H PRN #14 capsule 04/09/20 Enalapril Maleate [Vasotec -] 20 mg PO DAILY #30 tablet 04/09/20 Hydrochlorothiazide [Hctz -] 25 mg PO DAILY #30 tablet 04/09/20 Simvastatin 20 mg PO DAILY #30 tablet 04/09/20 Ciprofloxacin HCl 500 mg PO BID #28 tablet 04/14/20 Lactobacillus Acidophilus [Bacid -] 1 each PO DAILY #14 capsule 04/14/20 Ursodiol [Actigal -] 300 mg PO BID #60 capsule 04/14/20 metroNIDAZOLE [Flagyl -] 250 mg PO TID #42 tablet 04/14/20 Review of Systems - Review of Systems Constitutional: reports: No Symptoms Eyes: reports: No Symptoms HENT: reports: No Symptoms Neck: reports: No Symptoms Cardiovascular: reports: No Symptoms Respiratory: reports: No Symptoms Gastrointestinal: reports: No Symptoms Genitourinary: reports: No Symptoms Musculoskeletal: reports: No Symptoms Integumentary: reports: No Symptoms Neurological: reports: No Symptoms Endocrine: reports: No Symptoms Hematology/Lymphatic: reports: No Symptoms Psychiatric: reports: No Symptoms Physical Exam Vital Signs: Vital Signs Temperature 97.9 F 04/16/20 03:59 Pulse Rate 72 04/16/20 03:59 Respiratory Rate 20 04/16/20 03:59 Blood Pressure 110/47 L 04/16/20 03:59 O2 Sat by Pulse Oximetry (%) 97 04/16/20 03:59 Constitutional: Yes: Well Nourished, No Distress, Calm, Obese Eyes: Yes: Conjunctiva Clear, EOM Intact HENT: Yes: Atraumatic, Normocephalic Neck: Yes: Supple, Trachea Midline Cardiovascular: Yes: Regular Rate and Rhythm Respiratory: Yes: Regular, CTA Bilaterally Musculoskeletal: Yes: WNL Extremities: Yes: WNL Neurological: Yes: Alert, Oriented Psychiatric: Yes: Alert, Oriented Labs: CBC, BMP 04/16/20 05:30 04/16/20 05:30 Assessment/Plan (1) Hypertension Code(s): I10 - ESSENTIAL (PRIMARY) HYPERTENSION (2) Obesity (BMI 30-39.9) Code(s): E66.9 - OBESITY, UNSPECIFIED (3) Transaminitis Code(s): R74.0 - NONSPEC ELEV OF LEVELS OF TRANSAMNS & LACTIC ACID DEHYDRGNSE (4) Type 2 diabetes mellitus Code(s): E11.9 - TYPE 2 DIABETES MELLITUS WITHOUT COMPLICATIONS gm positive bacteremia plan i have looked at the cx report i am going to hold off on starting any abx await for blood cx rest as per the team
[2020-04-16 09:07] VITALS: BMI 42.0
[2020-04-16] MEDS ORDERED: CIPROFLOXACIN 500 MG TABLET (RESTRICTED TO ID) PO SCH (10:00)
[2020-04-16] MEDS ORDERED: MAGNESIUM SULF 50% (8.12 MEQ/2 ML-1 GM VIAL) IVPB ONE (10:09)
--- NOTE | 2020-04-16 11:05 | EKG ---
Test Reason : Blood Pressure : / mmHG Vent. Rate : 117 BPM Atrial Rate : 117 BPM P-R Int : 148 ms QRS Dur : 122 ms QT Int : 362 ms P-R-T Axes : 041 -38 -06 degrees QTc Int : 504 ms SINUS TACHYCARDIA LEFT AXIS DEVIATION RIGHT BUNDLE BRANCH BLOCK POSSIBLE LATERAL INFARCT (CITED ON OR BEFORE 03-APR-2020) POSSIBLE INFERIOR INFARCT (CITED ON OR BEFORE 03-APR-2020) ABNORMAL ECG Confirmed by FERN VIEIRA MD ([id number]) on 04/16/2020 11:04:34 AM Referred By: Confirmed By:FERN VIEIRA MD
[2020-04-16] MEDS: ENOXAPARIN NA (PORCINE) 40 MG/0.4 ML DISP.SYRIN SQ SCH (11:34)
[2020-04-16] MEDS ORDERED: PT OWN MED DRAWER 7, Y5N ONE ×2 (11:36→12:58)
[2020-04-16] MEDS ORDERED: MAGNESIUM 1GM/D5W - 1 GM/100 ML IVPB IVPB ONE (11:45)
[2020-04-16] MEDS: URSODIOL 300 MG CAPSULE PO SCH ×2 (13:17→22:35)
--- NOTE | 2020-04-16 18:14 | PN ---
Physical Exam: SUBJECTIVE: Patient seen and examined at bedside, admitted/re-called for asymptomatic bacteremia, likely contaminant in blood cx, awaiting repeat. VSS. OBJECTIVE: GA comfortable, NAD, AAox3 HEENT NC/aT, EOMI, MMM Chest CTAB, fungal-like rash R inferior breast CVS s1, S2+, RRR Abd obese, Soft, NT, ND, BS+, no guarding Ext no LE edema Laboratory Results - last 24 hr 04/15/20 04/15/20 04/15/20 18:00 18:00 18:00 WBC 7.1 RBC 4.14 Hgb 11.4 Hct 34.5 MCV 83.5 MCH 27.5 MCHC 32.9 RDW 14.4 Plt Count 419 MPV 8.8 Absolute Neuts (auto) 4.8 Neutrophils % 67.2 Lymphocytes % 23.0 Monocytes % 6.4 Eosinophils % 2.4 Basophils % 1.0 Nucleated RBC % 0 PT with INR 12.30 INR 1.04 Sodium 139 Potassium 3.7 Chloride 103 Carbon Dioxide 26 Anion Gap 10 BUN 9.7 Creatinine 0.9 Est GFR (CKD-EPI)AfAm 77.77 Est GFR (CKD-EPI)NonAf 67.10 POC Glucometer Random Glucose 143 H Calcium 9.8 Phosphorus Magnesium Total Bilirubin 0.8 AST 38 H ALT 68 H Alkaline Phosphatase 175 H Total Protein 7.8 Albumin 3.8 TSH 1.77 Urine Color Urine Appearance Urine pH Ur Specific Hutchins Urine Protein Urine Glucose (UA) Urine Ketones Urine Blood Urine Nitrite Urine Bilirubin Urine Urobilinogen Ur Leukocyte Esterase 04/16/20 04/16/20 04/16/20 00:04 03:52 05:30 WBC 5.0 RBC 4.02 Hgb 11.1 Hct 33.1 MCV 82.2 MCH 27.5 MCHC 33.4 RDW 14.6 Plt Count 400 MPV 8.4 Absolute Neuts (auto) 2.7 Neutrophils % 53.2 D Lymphocytes % 33.2 D Monocytes % 8.2 Eosinophils % 4.2 Basophils % 1.2 Nucleated RBC % 0 PT with INR INR Sodium Potassium Chloride Carbon Dioxide Anion Gap BUN Creatinine Est GFR (CKD-EPI)AfAm Est GFR (CKD-EPI)NonAf POC Glucometer 141 Random Glucose Calcium Phosphorus Magnesium Total Bilirubin AST ALT Alkaline Phosphatase Total Protein Albumin TSH Urine Color Yellow Urine Appearance Clear Urine pH 6.0 Ur Specific Hutchins 1.010 Urine Protein Negative Urine Glucose (UA) Negative Urine Ketones Negative Urine Blood Negative Urine Nitrite Negative Urine Bilirubin Negative Urine Urobilinogen 0.2 Ur Leukocyte Esterase Negative 04/16/20 04/16/20 04/16/20 05:30 06:58 11:32 WBC RBC Hgb Hct MCV MCH MCHC RDW Plt Count MPV Absolute Neuts (auto) Neutrophils % Lymphocytes % Monocytes % Eosinophils % Basophils % Nucleated RBC % PT with INR INR Sodium 140 Potassium 3.8 Chloride 104 Carbon Dioxide 29 Anion Gap 7 L BUN 7.2 Creatinine 0.7 Est GFR (CKD-EPI)AfAm 105.38 Est GFR (CKD-EPI)NonAf 90.92 POC Glucometer 127 129 Random Glucose 128 H Calcium 9.3 Phosphorus 4.1 Magnesium 1.7 L Total Bilirubin 1.0 AST 38 H ALT 57 Alkaline Phosphatase 153 H Total Protein 7.3 Albumin 3.4 TSH Urine Color Urine Appearance Urine pH Ur Specific Hutchins Urine Protein Urine Glucose (UA) Urine Ketones Urine Blood Urine Nitrite Urine Bilirubin Urine Urobilinogen Ur Leukocyte Esterase 04/16/20 16:07 WBC RBC Hgb Hct MCV MCH MCHC RDW Plt Count MPV Absolute Neuts (auto) Neutrophils % Lymphocytes % Monocytes % Eosinophils % Basophils % Nucleated RBC % PT with INR INR Sodium Potassium Chloride Carbon Dioxide Anion Gap BUN Creatinine Est GFR (CKD-EPI)AfAm Est GFR (CKD-EPI)NonAf POC Glucometer 134 Random Glucose Calcium Phosphorus Magnesium Total Bilirubin AST ALT Alkaline Phosphatase Total Protein Albumin TSH Urine Color Urine Appearance Urine pH Ur Specific Hutchins Urine Protein Urine Glucose (UA) Urine Ketones Urine Blood Urine Nitrite Urine Bilirubin Urine Urobilinogen Ur Leukocyte Esterase Active Medications Generic Name Dose Route Start Last Admin Trade Name Freq PRN Reason Stop Dose Admin Clotrimazole 1 applic 04/16/20 22:00 Lotrimin 1% Cream - TP BID [facility] Enoxaparin Sodium 40 mg 04/16/20 10:00 04/16/20 11:34 Lovenox - SQ 40 mg DAILY [facility] Administration Insulin Aspart 1 vial 04/16/20 07:00 04/16/20 16:08 Novolog Vial Sliding Scale - SQ Not Given ACHS [facility] Protocol Ursodiol 300 mg 04/16/20 10:00 04/16/20 13:17 Actigal - PO 300 mg BID [facility] Administration ASSESSMENT/PLAN: 65 F Gram+ bacteremia (likely contaminant) h/o Biliary colic with CBD dilatation/sludge prior UTI s/p abx HTN HLD T2DM s/p cholecystectomy Morbid obesity Plan: Hold off abx per ID recs, repeat blood cx Supplement PPI Strict glycemic control Ursodiol x2 months to continue Low fat diet Fungal cream for breast rash ID following DVT lovenox Visit type - Emergency Visit Emergency Visit: Yes ED Registration Date: 04/15/20 Care time: The patient presented to the Emergency Department on the above date and was hospitalized for further evaluation of their emergent condition. - New Patient This patient is new to me today: No - Critical Care Critical Care patient: No - Discharge Referral Referred to [facility] No - Medication Review Med list reviewed for High Risk Meds patients 65 and older: Yes
[2020-04-16] MEDS: CLOTRIMAZOLE 1% CREAM 15 GM TUBE TP SCH (22:34)
[2020-04-17] MEDS: INSULIN SLIDING SCALE (NOVOLOG) 1 VIAL SQ SCH ×5 (06:53→22:20)
[2020-04-17] MEDS ORDERED: PT OWN MED DRAWER 7, Y5N ONE (08:33)
[2020-04-17] MEDS: URSODIOL 300 MG CAPSULE PO SCH (10:08)
[2020-04-17] MEDS: CLOTRIMAZOLE 1% CREAM 15 GM TUBE TP SCH ×2 (10:09→22:21)
[2020-04-17] MEDS: ENOXAPARIN NA (PORCINE) 40 MG/0.4 ML DISP.SYRIN SQ SCH (10:09)
[2020-04-17] MEDS ORDERED: diphenhydrAMINE HCL 25 MG CAPSULE (FP) PO PRN (11:44)
--- NOTE | 2020-04-17 14:08 | PN ---
Physical Exam: SUBJECTIVE: Patient seen and examined at bedside, denies complaints except for b/l breast rash and some on L forearm ?related to Ciprofloxacin/Flagyl/Ursodiol use v.s. fungal rash, will cont. Clotrimazole cream, and DC potential offending agents. VS otherwise stable, denies SOB/CP, blood cx negative UTD. Awaiting ID recs. OBJECTIVE: GA comfortable, NAD, AAox3 HEENT NC/aT, EOMI, MMM Chest CTAB, fungal-like rash R inferior breast and some involving L inferior breast cleft eruptive in nature, morbillform-type CVS s1, S2+, RRR Abd obese, Soft, NT, ND, BS+, no guarding Ext no LE edema, small patchy rash L forearm Laboratory Results - last 24 hr 04/15/20 04/16/20 04/16/20 19:30 16:07 22:38 POC Glucometer 134 149 COVID-19 ([facility]) Not detected 04/17/20 04/17/20 06:51 12:32 POC Glucometer 115 163 COVID-19 ([facility]) Active Medications Generic Name Dose Route Start Last Admin Trade Name Freq PRN Reason Stop Dose Admin Clotrimazole 1 applic 04/16/20 22:00 04/17/20 10:09 Lotrimin 1% Cream - TP 1 applic BID [facility] Administration Diphenhydramine HCl 25 mg 04/17/20 11:44 Benadryl - PO Q12H PRN FOR ITCHING Enoxaparin Sodium 40 mg 04/16/20 10:00 04/17/20 10:09 Lovenox - SQ 40 mg DAILY [facility] Administration Insulin Aspart 1 vial 04/16/20 07:00 04/17/20 12:33 Novolog Vial Sliding Scale - SQ 2 units ACHS [facility] Administration Protocol Ursodiol 300 mg 04/16/20 10:00 04/17/20 10:08 Actigal - PO 300 mg BID [facility] Administration ASSESSMENT/PLAN: 65 F Gram+ bacteremia (likely contaminant) h/o Biliary colic with CBD dilatation/sludge prior UTI s/p abx Eruptive morbilliform rash involving inferior breasts/L forearm HTN HLD T2DM s/p cholecystectomy Morbid obesity Plan: Hold off abx per ID recs, repeat blood cx negative UTD DC Cipro/Flagyl/Ursodiol due to rash/drug reaction, Benadryl PRN and cont. Clotrimazole cream Supplement PPI Strict glycemic control Low fat diet ID following DVT ppx: ambulation Visit type - Emergency Visit Emergency Visit: Yes ED Registration Date: 04/15/20 Care time: The patient presented to the Emergency Department on the above date and was hospitalized for further evaluation of their emergent condition. - New Patient This patient is new to me today: No - Critical Care Critical Care patient: No - Discharge Referral Referred to [facility] No - Medication Review Med list reviewed for High Risk Meds patients 65 and older: Yes
--- NOTE | 2020-04-17 16:40 | PN ---
Progress Note, Physician History of Present Illness: Pt alert, afebrile, ambulating. Denies any abd pain. Rash under breast/Rt abd. No other complaints. - Current Medication List Current Medications: Active Medications Clotrimazole (Lotrimin 1% Cream -) 1 applic TP BID [facility] Last Admin: 04/17/20 10:09 Dose: 1 applic Documented by: Diphenhydramine HCl (Benadryl -) 25 mg PO Q12H PRN PRN Reason: FOR ITCHING Enoxaparin Sodium (Lovenox -) 40 mg SQ DAILY [facility] Last Admin: 04/17/20 10:09 Dose: 40 mg Documented by: Insulin Aspart (Novolog Vial Sliding Scale -) 1 vial SQ ACHS [facility]; Protocol Last Admin: 04/17/20 15:35 Dose: Not Given Documented by: - Objective Vital Signs: Vital Signs Temperature 98.3 F 04/17/20 10:00 Pulse Rate 78 04/17/20 10:00 Respiratory Rate 18 04/17/20 10:00 Blood Pressure 130/70 04/17/20 10:00 O2 Sat by Pulse Oximetry (%) 96 04/17/20 09:00 Constitutional: Yes: No Distress, Calm Cardiovascular: Yes: Regular Rate and Rhythm Respiratory: Yes: Regular Gastrointestinal: Yes: Normal Bowel Sounds, Soft Integumentary: Yes: Rash (under breast, Rt abd - no vesicles/pustules/ induration/drainage) Neurological: Yes: Alert, Oriented Labs: CBC, BMP 04/16/20 05:30 04/16/20 05:30 INR, PTT INR 1.04 (0.83-1.09) 04/15/20 18:00 Microbiology 04/15/20 18:00 Blood - Peripheral Venous Blood Culture - Preliminary NO GROWTH OBTAINED AFTER 24 HOURS, INCUBATION TO CONTINUE FOR 4 DAYS. 04/15/20 18:00 Blood - Peripheral Venous Blood Culture - Preliminary NO GROWTH OBTAINED AFTER 24 HOURS, INCUBATION TO CONTINUE FOR 4 DAYS. Problem List - Problems (1) Gram positive bacterial infection Code(s): A49.9 - BACTERIAL INFECTION, UNSPECIFIED (2) Obesity (BMI 30-39.9) Code(s): E66.9 - OBESITY, UNSPECIFIED (3) Type 2 diabetes mellitus Code(s): E11.9 - TYPE 2 DIABETES MELLITUS WITHOUT COMPLICATIONS Assessment/Plan Coag. neg Staph isolate in previous blood culture likely contaminant Rash - agree possible po antibiotics taken at home, vs intertrigo -- latest blood culture neg 24hr -- pt afebrile/without leukocytosis, vitals stable without abd complaints -- continue clotrimazole cream, hold antibiotics
[2020-04-18] MEDS: INSULIN SLIDING SCALE (NOVOLOG) 1 VIAL SQ SCH ×3 (06:17→17:33)
[2020-04-18] MEDS: ENOXAPARIN NA (PORCINE) 40 MG/0.4 ML DISP.SYRIN SQ SCH ×2 (10:26→10:29)
[2020-04-18] MEDS: CLOTRIMAZOLE 1% CREAM 15 GM TUBE TP SCH (10:27)
--- NOTE | 2020-04-18 11:10 | DS ---
Physical Exam: SUBJECTIVE: Patient seen and examined 65-year-old female with past medical hypertension hyperlipidemia diabetes morbid obesity came to the ER with complaining of rash all over the body. OBJECTIVE: Vital Signs Period Temp Pulse Resp BP Sys/Mckeon Pulse Ox Last 24 Hr 97.8 F-98.2 F 75-86 20-20 128-158/62-82 95-97 PHYSICAL EXAM GENERAL: The patient is awake, alert, and fully oriented, in no acute distress. HEAD: Normal with no signs of trauma. EYES: PERRL, extraocular movements intact, sclera anicteric, conjunctiva clear. ENT: Ears normal, nares patent, oropharynx clear without exudates, moist mucous membranes. NECK: Trachea midline, full range of motion, supple. LUNGS: Breath sounds equal, clear to auscultation bilaterally, no wheezes, no crackles, no accessory muscle use. HEART: Regular rate and rhythm, S1, S2 without murmur, rub or gallop. ABDOMEN: Soft, nontender, nondistended, normoactive bowel sounds, no guarding, no rebound, no hepatosplenomegaly, no masses. EXTREMITIES: 2+ pulses, warm, well-perfused, no edema. NEUROLOGICAL: Cranial nerves II through XII grossly intact. Normal speech, gait not observed. PSYCH: Normal mood, normal affect. SKIN: Warm, dry, normal turgor, no rashes or lesions noted. LABS Laboratory Results - last 24 hr 04/15/20 04/17/20 04/17/20 19:30 12:32 17:09 POC Glucometer 163 143 COVID-19 ([facility]) Not detected 04/17/20 04/18/20 22:20 06:15 POC Glucometer 140 141 COVID-19 ([facility]LLA) HOSPITAL COURSE: She was admitted to the hospital started on IV antibiotics seen by infectious disease. No bacteria were grown she was off the antibiotic however the rash was due to drug allergy patient was started on Lotrisone skin cream she improved a lot she is going to go home with her regular medication plus Lotrisone apply at the affected area twice a day for next 10 days. Advised patient to follow-up with her primary care doctor. Thank you Date of Admission:04/15/20 Date of Discharge: 04/18/20 Minutes to complete discharge: 32 Discharge Summary Problems reviewed: Yes Reason For Visit: GRAM-NEGATIVE BACTEREMIA Current Active Problems Gram positive bacterial infection (Acute) Condition: Improved - Instructions Diet, Activity, Other Instructions: Regular diet and home medication Referrals: Baldev Lopez MD [Primary Care Provider] - Disposition: HOME - Home Medications Comprehensive Discharge Medication List: Ambulatory Orders Glipizide [Glipizide Xl] 0 mg PO DAILY 04/03/20 Docusate Sodium [Colace -] 100 mg PO Q12H PRN #14 capsule 04/09/20 Enalapril Maleate [Vasotec -] 20 mg PO DAILY #30 tablet 04/09/20 Hydrochlorothiazide [Hctz -] 25 mg PO DAILY #30 tablet 04/09/20 Simvastatin 20 mg PO DAILY #30 tablet 04/09/20 Ciprofloxacin HCl 500 mg PO BID #28 tablet 04/14/20 Lactobacillus Acidophilus [Bacid -] 1 each PO DAILY #14 capsule 04/14/20 Ursodiol [Actigal -] 300 mg PO BID #60 capsule 04/14/20 metroNIDAZOLE [Flagyl -] 250 mg PO TID #42 tablet 04/14/20 Clotrimazole [Lotrimin -] 1 applic TP BID #60 grams 04/18/20 This patient is new to me today: Yes Date on this admission: 04/18/20 Emergency Visit: Yes ED Registration Date: 04/15/20 Care time: The patient presented to the Emergency Department on the above date and was hospitalized for further evaluation of their emergent condition. Critical Care patient: No - Discharge Referral [facility]erred [facility] No
[2020-04-18 14:07] VITALS: BP 148/71; PULSE 84; TEMP 98.2
== END 2020-04-18 18:54 | disposition home or self-care (01) | DRG 385 ==
LOC: JER 16:07 → JERBED 23:33 → UNDOADMIN 23:33 → JERBED 23:35 → J8W 04-16 06:18
PROVIDERS: ADMIT Internal Medicine; ATTEND Internal Medicine
DX: L30.4 Erythema intertrigo (principal); T36.8X5A Adverse effect of other systemic antibiotics, initial encounter; E66.01 Morbid (severe) obesity due to excess calories; Z68.41 Body mass index [BMI] 40.0-44.9, adult; I10 Essential (primary) hypertension; E78.5 Hyperlipidemia, unspecified; R00.0 Tachycardia, unspecified; R74.0 Nonspecific elevation of levels of transaminase and lactic acid dehydrogenase [LDH]; E11.9 Type 2 diabetes mellitus without complications; I45.10 Unspecified right bundle-branch block; L27.0 Generalized skin eruption due to drugs and medicaments taken internally
CPT/HCPCS: 36415; 80053; 81003; 82962; 83735; 84100; 84443; 85025; 85610; 87040; 93005; 93010; 99285-25; U0003

== ENCOUNTER 2023-05-09 04:25 | Day surgery (SDC) | payer MEDICARE, OTHER ==
[2023-05-07 13:00] VITALS: BMI 35.6
[~2023-05-09 04:25] MED LIST: ACETAMINOPHEN 325 MG TABLET (FP) PO PRN; LIDOCAINE 1%/EPI 1:100000 (20 ML MULTI DOSE VIAL) INF ONE; TRIAMCINOLONE ACET 40MG/1ML VIAL NR ONE
[2023-05-09] MEDS ORDERED: TRIAMCINOLONE ACET 40MG/1ML VIAL ONE (07:37)
[2023-05-09] MEDS: OFLOXACIN 0.3% OPHTHALMIC SOLUTION 5 ML BOTTLE OP SCH ×2 (09:22→09:29)
[2023-05-09] MEDS ORDERED: LIDOCAINE HCL 2% JELLY 11 ML TP ONE (09:58)
[2023-05-09] MEDS ORDERED: TETRACAINE 0.5% OPHTH SOLN 2 ML BOTTLE OS ONE (11:03)
[2023-05-09] MEDS ORDERED: POVIDONE-IODINE 5% OPHTHALMIC PREP 30 ML SOLUTION OS ONE (11:07)
[2023-05-09] MEDS ORDERED: LIDOCAINE 1%/EPI 1:100000 (20 ML MULTI DOSE VIAL) INF ONE (11:10)
[2023-05-09] MEDS ORDERED: TRIAMCINOLONE ACET 40MG/1ML VIAL NR ONE ×2 (11:32→11:39)
[2023-05-09 12:27] VITALS: RESP 18
[2023-05-09 12:46] VITALS: BP 126/63; PULSE 69; TEMP 97.5
== END 2023-05-09 12:59 | disposition home or self-care (01) ==
LOC: JASU-SURG 04:25
PROVIDERS: ATTEND Ophthalmology
PROC: 08BTXZZ Excision of Left Conjunctiva, External Approach (ICD-10-PCS; principal; 2023-05-09 11:00)
DX: H11.002 Unspecified pterygium of left eye (principal)